=== PATIENT | male | born 1955 | race Caucasian/White ===

== ENCOUNTER → 2016-10-28 | Outpatient (REF) | payer OTHER ==
[2016-10-28 17:30] LABS: ALBUMIN 3.4 GM/DL (3.2-5.2); ALBUMIN/GLOBULIN RATIO 0.85 (1.00-1.93); ALKALINE PHOSPHATASE 67 U/L (45-117); ALT/SGPT 15 U/L (12-78); ANION GAP 10 MEQ/L (8-16); AST/SGOT 14 U/L (15-37); BILIRUBIN,TOTAL 0.5 MG/DL (0.2-1.0); BLOOD UREA NITROGEN 5 MG/DL (7-18); CALCIUM LEVEL 8.8 MG/DL (8.8-10.2); CARBON DIOXIDE LEVEL 25 MEQ/L (21-32); CHLORIDE LEVEL 94 MEQ/L (98-107); CHOLESTEROL LEVEL 150 MG/DL (<200); CREATININE FOR GFR 0.67 MG/DL (0.70-1.30); GLOMERULAR FILTRATION RATE > 60.0 (>49); GLUCOSE, FASTING 86 MG/DL (80-110); MAGNESIUM LEVEL 1.8 MG/DL (1.8-2.4); POTASSIUM SERUM 4.7 MEQ/L (3.5-5.1); SODIUM LEVEL 129 MEQ/L (136-145); TOTAL PROTEIN 7.4 GM/DL (6.4-8.2); TRIGLYCERIDES LEVEL 56 MG/DL (<150)
[2016-10-28 17:44] LABS: FOLATE 8.8 NG/ML; VITAMIN B12 LEVEL 184 PG/ML
[2016-10-28 18:12] LABS: BASO # 0.1 K/mm3 (0.0-0.2); BASO % 0.9 % (0.0-1.0); EOS # 0.4 K/mm3 (0.0-0.50); EOS % 5.5 % (0.0-3.0); LARGE UNSTAINED CELL # 0.2 K/mm3 (0.0-0.4); LARGE UNSTAINED CELL % 3.2 % (0.0-4.0); LYMPH # 1.5 K/mm3 (1.5-4.5); LYMPH % 23.4 % (24.0-44.0); MEAN CORPUSCULAR HEMOGLOBIN 35.5 pg (27.0-33.0); MEAN CORPUSCULAR HGB CONC 35.2 g/dl (32.0-36.5); MONO # 0.7 K/mm3 (0.0-0.8); MONO % 10.7 % (0.0-5.0); NEUTROPHILS # 3.7 K/mm3 (1.8-7.7); NEUTROPHILS % 56.3 % (36.0-66.0); PLATELET COUNT, AUTOMATED 508 k/mm3 (150-450); WHITE BLOOD COUNT 6.5 K/mm3 (4.0-10.0)
== END ==
LOC: M SFHCCAPE 08:33
PROVIDERS: ATTEND Physician Assistant
DX: R10.11 Right upper quadrant pain (principal); I10 Essential (primary) hypertension; F10.10 Alcohol abuse, uncomplicated; Z12.5 Encounter for screening for malignant neoplasm of prostate
CPT/HCPCS: 80053; 80061; 81001; 82607; 82746; 83690; 83735; 84443; 85025; 87338; G0103

== ENCOUNTER → 2016-12-30 | Outpatient (CLI) | payer OTHER ==
[~2016-12-30] MED LIST: GASTROGRAFIN SOLUTION 30ML (Q9963) As Ordered ONE; ISOVUE-370 76% 100ML VIAL (Q9967) As Ordered ONE
--- NOTE | 2016-12-31 08:27 | REP ---
Clinical: Right upper quadrant pain. Technique: Axial contrast enhanced images from the lung bases to the pubic symphysis using oral and 100 ml Isovue 370 intravenous contrast material with precontrast images of the abdomen as well as coronal and sagittal re-formations. Comparison: 04/09/2013. Findings: Lung bases demonstrate calcified pleural plaques, mild dependent changes and chronic stable basilar scarring. Visualized portions of the heart and pericardium are normal. Liver, spleen, pancreas, gallbladder, bilateral adrenal glands and kidneys are relatively normal. Incidental note is made of a 3 mm right renal calculus which may represent nephroliths versus renovascular calcifications. The enteric system is without obstruction or acute inflammatory process. Pelvis demonstrates mild bladder wall thickening which may be secondary to chronic outlet obstruction. The prostate gland is within normal limits for size. No pelvic fluid or ascites. No obvious adenopathy. Atherosclerotic changes to the aorta and vasculature noted without aneurysm. Musculoskeletal structures demonstrate age-related degenerative changes without focal osseous abnormality. Impression: 1. Scattered calcified pleural plaques and minimal basilar scarring suggest sequelae of prior asbestosis. 2. Mild bladder wall thickening cannot be excluded and should be correlated with urological consultation. 3. No acute cardiopulmonary process otherwise appreciated. Signed by John Dior MD 12/31/2016 08:18 A
== END ==
LOC: M RAD 15:31
PROVIDERS: ATTEND Physician Assistant
DX: R10.11 Right upper quadrant pain (principal)
CPT/HCPCS: 74178; Q9963; Q9967

== ENCOUNTER → 2017-01-12 | Outpatient (CLI) | payer OTHER ==
--- NOTE | 2017-01-12 10:24 | REP ---
Clinical: Lung screening. History smoking. Comparison: None Technique: Axial low-dose noncontrast images from the thoracic inlet to the upper abdomen using lung screening technique. Findings: The lung camacho are well-aerated and demonstrate diffuse moderate COPD/emphysematous changes as well as apical (right greater than left) and scattered scarring. Partially calcified pleural plaques are also identified. The tracheobronchial tree is patent. Scarring adjacent to a pleural plaque along the anterior right upper lobe (images 54 - 70) is noted. No consolidation, nodule or mass lesion is appreciated. No pleural effusion. Mild atherosclerotic changes of the aorta and coronary arteries noted without obvious cardiomegaly. Impression: While no obvious nodule or suspicious lesion is definitively appreciated, there are no Society criteria for follow up based on the above mentioned chronic findings including moderate emphysematous disease, scattered scarring, and findings to suggest asbestosis. Pulmonology consultation is recommended. Signed by John Dior MD 01/12/2017 10:15 A
== END ==
LOC: M RAD 09:46
PROVIDERS: ATTEND Physician Assistant
DX: F17.210 Nicotine dependence, cigarettes, uncomplicated (principal)

== ENCOUNTER → 2017-02-02 | Outpatient (REF) | payer OTHER | LOC: M LABSMT 08:55 | PROVIDERS: ATTEND Nurse Practitioner Women's Health | DX: R31.29 Other microscopic hematuria (principal) ==

== ENCOUNTER 2017-06-20 14:32 | Emergency (ER) | payer OTHER | END 2017-06-20 17:08 | disposition home or self-care (01) | LOC: M ED 14:32 | DX: S05.10XA Contusion of eyeball and orbital tissues, unspecified eye, initial encounter (principal); S50.01XA Contusion of right elbow, initial encounter; W01.10XA Fall on same level from slipping, tripping and stumbling with subsequent striking against unspecified object, initial encounter; Y92.099 Unspecified place in other non-institutional residence as the place of occurrence of the external cause; Y93.9 Activity, unspecified; Y99.9 Unspecified external cause status; I10 Essential (primary) hypertension; R10.9 Unspecified abdominal pain; F17.200 Nicotine dependence, unspecified, uncomplicated; F10.10 Alcohol abuse, uncomplicated; Z79.899 Other long term (current) drug therapy | CPT/HCPCS: 73080 ==

== ENCOUNTER 2017-08-13 18:57 | Emergency (ER) | payer OTHER ==
[2017-08-13] MEDS: TETANUS/DIPHTHERIA TOX ADSORB ADULT 0.5ML SYR/VIAL (90714) IM (19:35)
[2017-08-13] MEDS: LIDOCAINE W/EPINEPHRINE 1% 20ML VIAL SC (19:55)
== END 2017-08-13 20:40 | disposition home or self-care (01) ==
LOC: M ED 18:57
DX: S01.81XA Laceration without foreign body of other part of head, initial encounter (principal); W10.8XXA Fall (on) (from) other stairs and steps, initial encounter; W22.09XA Striking against other stationary object, initial encounter; Y92.098 Other place in other non-institutional residence as the place of occurrence of the external cause; I10 Essential (primary) hypertension; Z79.899 Other long term (current) drug therapy
CPT/HCPCS: 90714

== ENCOUNTER 2018-03-18 14:37 | Inpatient (IN) | payer OTHER ==
[~2018-03-18] VITALS: Ht 170.2 cm; Wt 58.0 kg
[~2018-03-18 14:37] MED LIST changes: +AUGM875T28 PO; -GASTROGRAFIN SOLUTION 30ML (Q9963) As Ordered ONE; -ISOVUE-370 76% 100ML VIAL (Q9967) As Ordered ONE; +LISI40TA PO
[2018-03-18] MEDS ORDERED: LORazepam 1 MG TAB PO STA (15:00)
[2018-03-18] MEDS ORDERED: THIAMINE HCL 200 MG/2 ML VIAL (J3411) IM ONE (15:00)
[2018-03-18] MEDS ORDERED: ACETAMINOPHEN 325 MG TAB PO ONE (15:00)
[2018-03-18] MEDS ORDERED: NS 1,000 ML IV ONE (15:15)
[2018-03-18 15:16] LABS: OSMOLALITY SERUM 268 MOSM/KG (280-301)
[2018-03-18 15:20] LABS: BASO % 0.4 % (0.0-1.0); EOS % 0.1 % (0.0-3.0); HEMATOCRIT 41.9 % (42.0-52.0); HEMOGLOBIN 15.6 g/dl (13.5-17.5); LYMPH # 0.9 10^3/uL (1.5-4.5); LYMPH % 9.7 % (24.0-44.0); MEAN CORPUSCULAR HEMOGLOBIN 35.5 pg (27.0-33.0); MEAN CORPUSCULAR HGB CONC 37.2 g/dl (32.0-36.5); MEAN CORPUSCULAR VOLUME 95.4 fl (80.0-96.0); MONO # 1.5 10^3/uL (0.0-0.8); MONO % 15.8 % (0.0-5.0); NEUTROPHILS # 6.7 10^3/uL (1.8-7.7); NEUTROPHILS % 72.5 % (36.0-66.0); PLATELET COUNT, AUTOMATED 196 10^3/uL (150-450); RED BLOOD COUNT 4.39 10^6/uL (4.30-6.10); WHITE BLOOD COUNT 9.2 10^3/uL (4.0-10.0)
--- NOTE | 2018-03-18 15:23 | REP ---
Clinical: Altered mental status. Comparison: None. Findings: Mediastinum and cardiac silhouette are normal. Scattered partially calcified bilateral pleural plaques identified. Chronic interstitial changes are suggested. No obvious acute consolidation, effusion, or pneumothorax. Skeletal structures intact. Impression: Partially calcified pleural plaques and chronic appearing interstitial changes. No obvious acute consolidation or effusion. Electronically Signed by John Dior MD 03/18/2018 03:15 P
[2018-03-18] MEDS ORDERED: LORazepam 2 MG/ML VIAL (J2060) IV STA (15:28)
[2018-03-18 15:33] LABS: ACETAMINOPHEN LEVEL < 2.0 UG/ML (10.0-30.0); ALBUMIN 3.3 GM/DL (3.2-5.2); ALT/SGPT 29 U/L (12-78); BILIRUBIN,DIRECT 0.2 MG/DL (0.0-0.2); BILIRUBIN,TOTAL 0.5 MG/DL (0.2-1.0); BLOOD UREA NITROGEN 32 MG/DL (7-18); CALCIUM LEVEL 7.8 MG/DL (8.8-10.2); CARBON DIOXIDE LEVEL 22 MEQ/L (21-32); CHLORIDE LEVEL 88 MEQ/L (98-107); CPK CREATINE PHOSPHOKINASE 965 U/L (39-308); CREATININE FOR GFR 1.07 MG/DL (0.70-1.30); ETHYL ALCOHOL (ETHANOL) < 0.003 % (0.000-0.010); GLOMERULAR FILTRATION RATE > 60.0 (>49); GLUCOSE, FASTING 121 MG/DL (70-100); MAGNESIUM LEVEL 2.2 MG/DL (1.8-2.4); MB/CK RELATIVE INDEX 0.42 (< OR =4); POTASSIUM SERUM 4.3 MEQ/L (3.5-5.1); SALICYLATE LEVEL 6.1 MG/DL (5.0-30.0); SODIUM LEVEL 122 MEQ/L (136-145); THYROID STIMULATING HORMONE 0.274 uIU/ML (0.358-3.740); TOTAL PROTEIN 7.6 GM/DL (6.4-8.2); TROPONIN I < 0.02 NG/ML (< 0.10)
[2018-03-18 15:39] LABS: VENOUS BASE EXCESS -3.5 (-2.0-2.0); VENOUS HCO3 21.2 MEQ/L (23.0-27.0); VENOUS O2 SATURATION 51.1 % (60.0-80.0); VENOUS PARTIAL PRESSURE CO2 37.6 mmHg (38.0-50.0); VENOUS STANDARD HCO3 20.5 MEQ/L; VENOUS TOTAL CO2 22.4 MEQ/L (24.0-28.0)
[2018-03-18 16:33] LABS: FREE T4 1.36 NG/DL (0.76-1.46)
[2018-03-18 16:33] LABS: OSMOLALITY URINE 646 MOSM/KG (500-800)
[2018-03-18 16:49] LABS: AMPHETAMINES LEVEL URINE NEGATIVE (NEGATIVE); BARBITURATES URINE NEGATIVE (NEGATIVE); BENZODIAZEPINES URINE NEGATIVE (NEGATIVE); CANNABINOIDS URINE NEGATIVE (NEGATIVE); COCAINE METABOLITE URINE NEGATIVE (NEGATIVE); METHADONE URINE NEGATIVE (NEGATIVE); OPIATES URINE NEGATIVE (NEGATIVE); PHENCYCLIDINE URINE NEGATIVE (NEGATIVE)
[2018-03-18 16:53] LABS: SODIUM,RANDOM URINE < 10 MEQ/L
[2018-03-18] MEDS ORDERED: OSELTAMIVIR PHOSPHATE 75 MG CAP (TAMIFLU) PO ONE (17:15)
[2018-03-18] MEDS ORDERED: LORazepam 2 MG TAB PO PRN (18:45)
[2018-03-18] MEDS: NS 1,000 ML IV SCH (19:57)
[2018-03-18 20:00] VITALS: BP 100/68
[2018-03-18] MEDS: MULTIVITAMINS/MINERALS THERAP 1 TAB PO SCH (20:23)
[2018-03-18] MEDS: FOLIC ACID 1 MG TAB PO SCH (20:23)
[2018-03-18] MEDS: THIAMINE 100 MG TAB PO SCH (20:24)
[2018-03-18] MEDS ORDERED: MULTIVITAMIN -ADULT INJECTION 10 ML, THIAMINE INJection 100 MG, FOLIC ACID 1 MG in NS 1... IV ONE (20:30)
[2018-03-18 22:00] VITALS: BP 160/68
--- NOTE | 2018-03-18 22:06 | HPE ---
DATE OF ADMISSION: 03/18/2018 62-year-old male with a past medical history of hypertension, prior alcoholism, presents to the emergency room after his ex- saw him having difficulty getting out of bed and that he appeared in withdrawal, so the patient was brought to the emergency room for evaluation. In the emergency room, the patient was in withdrawal and was given Ativan and IV fluids. The patient subsequently was noted that one vital sign showed that he had a spike in temperature of 102 rectal. Chest x-ray was negative. UA was negative; however, the influenza swab was positive and was started on Tamiflu. At this time, the patient is extremely sedated from the Ativan and all the history I got was from the daughter. The daughter states that apparently the patient drinks very heavily every single day and only drinks beer. This state of affairs has been going on for quite some time now. He will be admitted for further management. PAST MEDICAL HISTORY: 1. Hypertension. ALLERGIES: He has no known drug allergies. FAMILY HISTORY: Cannot be assessed, the patient is sedated. SOCIAL HISTORY: Cannot be assessed, the patient is sedated; however, from the daughter the patient drinks very heavily and only beer and apparently does not take any drugs. He does smoke one pack per day for many years. MEDICATIONS: At home are: - Lisinopril 40 mg orally daily REVIEW OF SYSTEMS: Cannot be assessed, the patient is sedated. PHYSICAL EXAMINATION: VITAL SIGNS: Blood pressure is 89/56, heart rate is 82 and regular, respiratory rate is 24, temperature is 102 rectally. Oxygen saturation is 96% on room air. Head is atraumatic, normocephalic. Neck is supple with no jugular venous distention (JVD). Lungs are clear to auscultation. S1, S2 audible. No murmurs appreciated. Abdomen is soft. Positive bowel sounds. No pedal edema. Skin is intact. Neurologic examination, the patient is sedated. LABORATORIES: Sodium 122, potassium 4.3, chloride 88, CO2 of 22, BUN 32, creatinine 1.07, glucose 121, troponin is less than 0.02, TSH is 0.274, Free T4 1.36. WBC 9.2, hemoglobin 15.6, hematocrit 41.9, platelets are 196,000. VBG showed pH of 7.370. Toxicology screen was negative. The patient's creatinine kinase is 965. IMPRESSION: 1. Influenza 2. Hyponatremia. 3. Alcohol withdrawal. 4. Rhabdomyolysis. PLAN: The patient is to be admitted to the progressive care unit (PCU). We will start Clinical [place] Withdrawal Assessment (CIWA) protocol. I am going to continue his Tamiflu at 75 mg by mouth twice a day. His hyponatremia is from beer [place]. I would normally just restrict fluids but since the patient is mildly on the hypotensive side and the fact that he has rhabdomyolysis, I am going to start him on fluids at normal saline at 75 mL an hour. We will hold his Lisinopril for now due to his low blood pressure. Continue his care in the progressive care unit (PCU).
[2018-03-18] MEDS: IPRATROPIUM 0.5MG/ALBUTEROL 2.5MG INH SOL UD 3ML (DUONEB)(J7620) NEB PRN (23:37)
[2018-03-19] VITALS (12 sets, daily range): BP systolic 111–180; BP diastolic 60–101; O2SAT 93
[2018-03-19 05:31] LABS: BLOOD UREA NITROGEN 23 MG/DL (7-18); CALCIUM LEVEL 7.4 MG/DL (8.8-10.2); CARBON DIOXIDE LEVEL 24 MEQ/L (21-32); CHLORIDE LEVEL 98 MEQ/L (98-107); CREATININE FOR GFR 0.77 MG/DL (0.70-1.30); GLOMERULAR FILTRATION RATE > 60.0 (>49); GLUCOSE, FASTING 96 MG/DL (70-100); POTASSIUM SERUM 4.5 MEQ/L (3.5-5.1); SODIUM LEVEL 130 MEQ/L (136-145)
[2018-03-19 05:33] LABS: ALBUMIN 2.7 GM/DL (3.2-5.2); ALT/SGPT 21 U/L (12-78); BILIRUBIN,TOTAL 0.5 MG/DL (0.2-1.0); BLOOD UREA NITROGEN 22 MG/DL (7-18); CALCIUM LEVEL 7.6 MG/DL (8.8-10.2); CARBON DIOXIDE LEVEL 22 MEQ/L (21-32); CHLORIDE LEVEL 98 MEQ/L (98-107); CREATININE FOR GFR 0.78 MG/DL (0.70-1.30); GLOMERULAR FILTRATION RATE > 60.0 (>49); GLUCOSE, FASTING 98 MG/DL (70-100); POTASSIUM SERUM 4.3 MEQ/L (3.5-5.1); SODIUM LEVEL 128 MEQ/L (136-145); TOTAL PROTEIN 6.8 GM/DL (6.4-8.2)
[2018-03-19 05:41] LABS: HEMATOCRIT 38.4 % (42.0-52.0); MEAN CORPUSCULAR HEMOGLOBIN 35.6 pg (27.0-33.0); MEAN CORPUSCULAR HGB CONC 36.5 g/dl (32.0-36.5); MEAN CORPUSCULAR VOLUME 97.7 fl (80.0-96.0); PLATELET COUNT, AUTOMATED 188 10^3/uL (150-450); RED BLOOD COUNT 3.93 10^6/uL (4.30-6.10); WHITE BLOOD COUNT 8.8 10^3/uL (4.0-10.0)
--- NOTE | 2018-03-19 07:24 | ECGEPIP ---
Stationary ECG Study [facility] - ED Test Date: 2018-03-18 Pat Name: MATHEW COHN Department: Room: - Gender: M Political Science Professor: brianda : [id number] Requested By: Val Brooks Order Number: [id number] Reading MD: Val Brooks Measurements Intervals [place] Rate: 121 P: 86 WV: 151 QRS: 84 QRSD: 73 T: 73 QT: 260 QTc: 369 Interpretive Statements SINUS TACHYCARDIA ANTEROSEPTAL MYOCARDIAL INFARCTION, PROBABLY OLD BASELINE ARTIFACT LIMITS INTERPRETATION NO PRIOR FOR COMPARISON Electronically Signed On 03-19-2018 7:24:13 EST by Val Brooks
[2018-03-19 08:11] LABS: CPK CREATINE PHOSPHOKINASE 480 U/L (39-308)
[2018-03-19] MEDS: OXAZEPAM 15 MG CAP PO SCH ×2 (08:15→12:58)
[2018-03-19] MEDS: OSELTAMIVIR PHOSPHATE 75 MG CAP (TAMIFLU) PO SCH ×2 (08:16→20:19)
--- NOTE | 2018-03-19 09:50 | REP ---
Clinical: Right upper quadrant pain. Technique: Axial noncontrast images from the lung bases to the pubic symphysis with coronal and sagittal re-formations. Comparison: 12/30/2016. Findings: Lung bases demonstrate calcified pleural plaques and chronic interstitial changes similar to prior examination. Liver, spleen, pancreas, gallbladder, bilateral adrenal glands and kidneys are within normal limits and stable. Small bilateral renovascular calcifications (right greater than left) are unchanged. The enteric system is without obstruction or obvious acute inflammatory process. Pelvis demonstrates normal bladder and mildly prominent prostate gland. No ascites. No free air. No obvious adenopathy. Atherosclerotic changes to the aorta and vasculature without aneurysm. Musculoskeletal structures demonstrate degenerative changes. Impression: 1. Chronic stable changes. 2. No obvious acute abdominopelvic pathology appreciated. Electronically Signed by John Dior MD 03/19/2018 09:41 A
[2018-03-19] MEDS: FOLIC ACID 1 MG TAB PO SCH (10:50)
[2018-03-19] MEDS: MULTIVITAMINS/MINERALS THERAP 1 TAB PO SCH (10:51)
[2018-03-19] MEDS: THIAMINE 100 MG TAB PO SCH ×2 (10:51→20:19)
--- NOTE | 2018-03-19 11:39 | REP ---
Clinical: Confusion. Comparison: 08/13/2017 . Findings: Age-related atrophy and microvascular ischemic changes are appreciated. The ventricles and sulci are symmetric. Colbert-white differentiation is maintained. There is no evidence for acute intracranial hemorrhage, mass/mass effect, pathology or infarction. No extra-axial fluid collection. Calvarium is intact. Partial opacification of the ethmoid and sphenoid sinuses noted. Impression: Age related atrophy and microvascular ischemic changes. No acute intracranial hemorrhage, infarction, or mass/mass effect. Ethmoid sinusitis. Electronically Signed by John Dior MD 03/19/2018 11:31 A
[2018-03-19] MEDS: NS 1,000 ML IV SCH (11:52)
[2018-03-19] MEDS: IPRATROPIUM 0.5MG/ALBUTEROL 2.5MG INH SOL UD 3ML (DUONEB)(J7620) NEB PRN (12:13)
[2018-03-19] MEDS ORDERED: ACETAMINOPHEN 650 MG SUPP PR PRN (12:30)
--- NOTE | 2018-03-19 13:57 | IPNPDOC ---
Text Note Date of Service The patient was seen on 03/19/18. NOTE Subjective: Patient is a 62-year-old male with a past history of HTN, Alcoholism who presented to the ER, brought in by his because of confusion. As per the , patient has been having progressive worsening mentation over 3 weeks. In the ER patient was suspected to have alcohol withdrawal, and was admitted to the hospitalist service for further evaluation and treatment. As per the daughter, patient is reported to have heavy alcohol consumption daily. Patient was seen and examined at the bedside. Currently, patient is unable to answer specific questions. He did complain of right upper quadrant abdominal pain. He denied any difficulty with breathing, chest pain or palpitations. Has not expense any nausea or vomiting. Has had bowel movements. No urinary discomfort. Objective: Vitals (See below) General: Lying in bed, no acute distress, comfortable, Awake / Alert, Oriented to person HEENT: NC, AT CVS: RRR, +S1S2 Lungs: Fair air entry b/l, -w/r/r Abdomen: Soft, ND, Tenderness at RUQ Extremities: - Edema, - Calf tenderness Assessment and plan: Confusion - possibly 2/2 alcohol withdrawal, possibly 2/2 dementia - Patient's family has noted progressive decline of mentation - Physical without focal weakness - CT head 2/3: Age related atrophy and microvascular ischemic changes. No acute intracranial hemorrhage, infarction, or mass/mass effect. Ethmoid sinusitis. - Will check repeat thyroid function, RPR, B12, Folate - Will get MRI brain - Will start PT / OT as tolerated Alcohol withdrawal - c/w CIWA protocol - c/w Serax; will taper as tolerated - c/w Ativan PRN Fever - likely 2/2 Influenza - No respiratory difficulty noted - Saturating well on room air - No significant leucocytosis; no lactic acidosis - Respiratory panel 2/2: Influenza A - CXR 2/2: Partially calcified pleural plaques and chronic appearing interstitial changes. No obvious acute consolidation or effusion. - c/w Oseltamivir (Day #2) RUQ abdominal pain - etiology unclear, possibly 2/2 alcoholic hepatitis - Complains of abdominal tenderness on physical exam - Mild elevation of AST - supporting alcoholic hepatitis - CT abdomen / pelvis 2/3: 1. Chronic stable changes. 2. No obvious acute abdo minopelvic pathology appreciated. - Will get US of RUQ Hyponatremia - likely 2/2 hypotonic, hypovolemic; less likely 2/2 hypotonic, euvolemic - Sodium has slowly improved - c/w IV fluid hydration Rhabdomyolysis - CK levels have been improving - c/w gentle IV fluid hydration GI prophylaxis - Will start Protonix DVT prophylaxis - Will start Lovenox VS,Fishbone, I+O VS, Fishbone, I+O Laboratory Tests 03/18/18 14:54 Red Blood Count 4.39, Mean Corpuscular Volume 95.4, Mean Corpuscular Hemoglobin 35.5 H, Mean Corpuscular Hemoglobin Concent 37.2 H, Red Cell Distribution Width 11.9, Neutrophils (%) (Auto) 72.5 H, Lymphocytes (%) (Auto) 9.7 L, Monocytes (%) (Auto) 15.8 H, Eosinophils (%) (Auto) 0.1, Basophils (%) (Auto) 0.4, Neutrophils # (Auto) 6.7, Lymphocytes # (Auto) 0.9 L, Monocytes # (Auto) 1.5 H, Eosinophils # (Auto) 0.0, Basophils # (Auto) 0.0 03/19/18 04:59 Red Blood Count 3.93 L, Mean Corpuscular Volume 97.7 H, Mean Corpuscular Hemoglobin 35.6 H, Mean Corpuscular Hemoglobin Concent 36.5, Red Cell Distribution Width 12.2, Calcium Level 7.4 L, Aspartate Amino Transf (AST/SGOT) 35, Alanine Aminotransferase (ALT/SGPT) 21, Alkaline Phosphatase 50, Total Bilirubin 0.5, Total Protein 6.8, Albumin 2.7 L Vital Signs Date Time Temp Pulse Resp B/P (MAP) Pulse Ox O2 Delivery O2 Flow Rate FiO2 03/19/18 12:28 120 180/101 03/19/18 12:05 101.0 03/19/18 08:00 18 97 03/18/18 19:15 Room Air I&O- Last 24 Hours up to 6 AM 03/19/18 06:00 Intake Total 873 ml Balance 873 ml RAE MCNAMARA MD Mar 19, 2018 13:57
[2018-03-19 14:24] LABS: INR 1.25; PROTHROMBIN TIME 15.9 SECONDS (12.1-14.4)
[2018-03-19] MEDS: LISINOPRIL 40 MG TAB PO SCH (15:50)
--- NOTE | 2018-03-19 16:14 | REPVR ---
EXAM: MR Head Without Contrast EXAM DATE/TIME: 03/19/2018 3:04 PM CLINICAL HISTORY: 62 years old, male; Signs and symptoms; Other: Confusion TECHNIQUE: MR of the head without contrast. COMPARISON: CT Head without contrast 03/19/2018 11:16 AM FINDINGS: Brain: There is no evidence of acute stroke. There is low signal intensity in the basal ganglia region bilaterally especially on the gradient sequences. Metallic deposition in this area can be seen Parkinson's disease. There is no evidence of mass effect. There is moderate enlargement of the ventricles and cerebral sulci which can be seen with moderate atrophy. This can also be the result of normal pressure hydrocephalus/communicating type hydrocephalus. Recommend correlation clinically. Bones/joints: Unremarkable. Sinuses: There is a small amount of thick secretions right maxillary sinus. There is opacification of the ethmoid sinuses consistent with mucosal thickening changes and sinusitis. Small amount of fluid in the sphenoid sinus. IMPRESSION: 1. Small amount of thick secretions maxillary sinuses. Opacification of the ethmoid sinuses probably changes of sinusitis. Underlying polyps not excluded. 2. Low signal intensity through the basal ganglia bilaterally may be metallic deposition. This can be seen Parkinson's disease. 3. Moderate enlargement of ventricles and cerebral sulci may all be the result of atrophy. Communicating type hydrocephalus can give an identical appearance. I would recommend correlation with the patient's clinical findings. Electronically signed by: Brian Monae On 03/19/2018 16:14:31 PM
[2018-03-19] MEDS: ENOXAPARIN 40 MG/0.4 ML SYRINGE (J1650) SC SCH (16:36)
[2018-03-19] MEDS: PANTOPRAZOLE 40MG INJ (PROTONIX) (C9113) IV SCH (16:36)
--- NOTE | 2018-03-19 16:36 | REP ---
Clinical: Crackles. Comparison: 03/18/2018. Findings: Mediastinum and cardiac silhouette are stable and within normal limits. Lung camacho demonstrate diffuse chronic pleuroparenchymal changes including fibrosis and scattered partially calcified pleural plaques. Very subtle left basilar atelectasis/early infiltrate cannot be excluded. No further consolidation, obvious effusion, or pneumothorax. Impression: Chronic stable pleuroparenchymal changes. Cannot exclude very subtle early left lower lobe infiltrate. Electronically Signed by John Dior MD 03/19/2018 04:27 P
[2018-03-19] MEDS: LevoFLOXacin IV 750 MG in APPROPRIATE DILUENT 1 EA IV SCH (17:26)
[2018-03-19 18:40] LABS: FREE T4 1.45 NG/DL (0.76-1.46); THYROID STIMULATING HORMONE 0.209 uIU/ML (0.358-3.740)
[2018-03-19] MEDS: VANCOMYCIN HCL 1,000 MG, VIAL MATE ADAPTER 1 EACH in D5W 250 ML IV SCH (20:18)
[2018-03-19] MEDS: OXAZEPAM 10 MG CAP PO SCH (20:19)
[2018-03-20] VITALS (9 sets, daily range): BP systolic 119–184; BP diastolic 58–112
[2018-03-20] MEDS: NS 1,000 ML IV SCH ×2 (01:06→09:05)
[2018-03-20 05:53] LABS: BASO % 0.2 % (0.0-1.0); EOS % 0.2 % (0.0-3.0); HEMATOCRIT 36.4 % (42.0-52.0); HEMOGLOBIN 13.3 g/dl (13.5-17.5); MEAN CORPUSCULAR HEMOGLOBIN 35.5 pg (27.0-33.0); MEAN CORPUSCULAR HGB CONC 36.5 g/dl (32.0-36.5); MEAN CORPUSCULAR VOLUME 97.1 fl (80.0-96.0); MONO # 1.4 10^3/uL (0.0-0.8); PLATELET COUNT, AUTOMATED 214 10^3/uL (150-450); RED BLOOD COUNT 3.75 10^6/uL (4.30-6.10); WHITE BLOOD COUNT 11.5 10^3/uL (4.0-10.0)
[2018-03-20 06:18] LABS: ALBUMIN 2.7 GM/DL (3.2-5.2); ALT/SGPT 22 U/L (12-78); BILIRUBIN,TOTAL 0.5 MG/DL (0.2-1.0); BLOOD UREA NITROGEN 12 MG/DL (7-18); CALCIUM LEVEL 7.8 MG/DL (8.8-10.2); CARBON DIOXIDE LEVEL 24 MEQ/L (21-32); CHLORIDE LEVEL 102 MEQ/L (98-107); CREATININE FOR GFR 0.54 MG/DL (0.70-1.30); GLOMERULAR FILTRATION RATE > 60.0 (>49); GLUCOSE, FASTING 109 MG/DL (70-100); MAGNESIUM LEVEL 1.8 MG/DL (1.8-2.4); POTASSIUM SERUM 3.9 MEQ/L (3.5-5.1); SODIUM LEVEL 134 MEQ/L (136-145); TOTAL PROTEIN 6.8 GM/DL (6.4-8.2)
--- NOTE | 2018-03-20 07:19 | REP ---
Clinical: Right upper quadrant pain. Technique: Real time pinon scale ultrasound examination using curved array transducer. Findings: Liver and visualized pancreas are normal in contour, size, echogenicity without focal hepatic or pancreatic lesion identified. The gallbladder demonstrates few adenomyomatosis and small benign appearing polyps up to 2 mm without gallstones, wall thickening, or pericholecystic fluid. No sonographic Lovelace's sign elicited. No biliary ductal dilatation appreciated and the common bile duct measures 2.5 mm diameter. Right kidney is normal in reniform shape without hydronephrosis and measures 11.8 x 6.0 x 5.3 cm. A minuscule amount of perihepatic fluid suggested. Impression: 1. Gallbladder demonstrates adenomyomatosis and small polyps to 2 mm. 2. A minuscule amount of perihepatic fluid is nonspecific. Electronically Signed by John Dior MD 03/20/2018 07:11 A
[2018-03-20] MEDS: VANCOMYCIN HCL 1,000 MG, VIAL MATE ADAPTER 1 EACH in D5W 250 ML IV SCH ×2 (08:27→20:18)
[2018-03-20] MEDS: MULTIVITAMINS/MINERALS THERAP 1 TAB PO SCH (09:03)
[2018-03-20] MEDS: ENOXAPARIN 40 MG/0.4 ML SYRINGE (J1650) SC SCH (09:03)
[2018-03-20] MEDS: OXAZEPAM 10 MG CAP PO SCH ×2 (09:03→20:16)
[2018-03-20] MEDS: THIAMINE 100 MG TAB PO SCH ×2 (09:04→20:17)
[2018-03-20] MEDS: OSELTAMIVIR PHOSPHATE 75 MG CAP (TAMIFLU) PO SCH ×2 (09:04→20:17)
[2018-03-20] MEDS: FOLIC ACID 1 MG TAB PO SCH (09:04)
[2018-03-20] MEDS: LISINOPRIL 40 MG TAB PO SCH (09:04)
[2018-03-20 10:05] LABS: FOLATE > 24.0 NG/ML (>5.4); TOTAL T3 51.2 NG/DL (60.0-181.0)
[2018-03-20] MEDS: PANTOPRAZOLE 40MG INJ (PROTONIX) (C9113) IV SCH (15:14)
[2018-03-20 15:45] LABS: CPK CREATINE PHOSPHOKINASE 329 U/L (39-308)
--- NOTE | 2018-03-20 15:56 | IPNPDOC ---
Text Note Date of Service The patient was seen on 03/20/18. NOTE Subjective: Patient is a 62-year-old male with a past history of HTN, Alcoholism who presented to the ER, brought in by his because of confusion. As per the , patient has been having progressive worsening mentation over 3 weeks. In the ER patient was suspected to have alcohol withdrawal, and was admitted to the hospitalist service for further evaluation and treatment. As per the daughter, patient is reported to have heavy alcohol consumption daily. Patient was seen and examined at the bedside. Patient denies any chest pain, shortness breath, palpitation. Denies nausea, vomiting, abdominal pain, constipation or diarrhea. His mentation seems to have improved. He denies any confusion today. . Currently, he is oriented to person and place and is aware of the year. Objective: Vitals (See below) General: Lying in bed, no acute distress, comfortable, Awake / Alert, Oriented to person HEENT: NC, AT CVS: RRR, +S1S2 Lungs: Fair air entry b/l, no evidence of wheezing, rhonchi or rales Abdomen: Soft, ND, No abdominal tenderness Extremities: No evidence of edema, - Calf tenderness Assessment and plan: Confusion - possibly 2/2 alcohol withdrawal, possibly 2/2 dementia - Patient's family has noted progressive decline of mentation - Physical without focal weakness - CT head 2/3: Age related atrophy and microvascular ischemic changes. No acute intracranial hemorrhage, infarction, or mass/mass effect. Ethmoid sinusitis. - Repeat thyroid function noted, RPR non-reactive, Folate >24, B12 pending - MRI brain 2/3: 1. Small amount of thick secretions maxillary sinuses. Opacification of the ethmoid sinuses probably changes of sinusitis. Underlying polyps not excluded. 2. Low signal intensity through the basal ganglia bilaterally may be metallic deposition. This can be seen Parkinson's disease. 3. Moderate enlargement of ventricles and cerebral sulci may all be the result of atrophy. Communicating type hydrocephalus can give an identical appearance. I would recommend correlati on with the patient's clinical findings. - c/w PT / OT as tolerated Alcohol withdrawal - c/w CIWA protocol - c/w Serax; dose reduced - c/w Ativan PRN Fever - likely 2/2 Influenza / Sinusitis / CAP - No respiratory difficulty noted - Saturating well on room air - No significant leucocytosis; no lactic acidosis - Respiratory panel 2/: Influenza A - CXR 2/: Partially calcified pleural plaques and chronic appearing interstitial changes. No obvious acute consolidation or effusion. - CXR 03/20: Chronic stable pleuroparenchymal changes. Cannot exclude very subtle early left lower lobe infiltrate. - c/w Oseltamivir (Day #3) and Levaquin (Day #2) Gram positive bacteremia - possibly 2/2 contaminant - Blood culture 03/18: (1 of 2 bottles positive); Pending official speciation / Gram positive cocci pairs/chains/clusters - Blood culture 03/20: Pending - c/w Vancomycin (Day #2) s/p RUQ abdominal pain - etiology unclear, possibly 2/2 alcoholic hepatitis - Complains of abdominal tenderness on physical exam - Mild elevation of AST - supporting alcoholic hepatitis - CT abdomen / pelvis 03/19: 1. Chronic stable changes. 2. No obvious acute abdominopelvic pathology appreciated. - US abdomen 03/20: 1. Gallbladder demonstrates adenomyomatosis and small polyps to 2 mm. 2. A minuscule amount of perihepatic fluid is nonspecific. Hyponatremia - likely 2/2 hypotonic, hypovolemic; less likely 2/2 hypotonic, euvolemic - Sodium continues to trend toward normal - c/w IV fluid hydration Rhabdomyolysis - CK trending down - c/w gentle IV fluid hydration GI prophylaxis - c/w Protonix DVT prophylaxis - c/w Lovenox VS,Fishbone, I+O VS, Fishbone, I+O Laboratory Tests 03/20/18 05:24 Red Blood Count 3.75 L, Mean Corpuscular Volume 97.1 H, Mean Corpuscular Hemoglobin 35.5 H, Mean Corpuscular Hemoglobin Concent 36.5, Red Cell Distribution Width 12.3, Neutrophils (%) (Auto) 78.0 H, Lymphocytes (%) (Auto) 9.0 L, Monocytes (%) (Auto) 12.0 H, Eosinophils (%) (Auto) 0.2, Basophils (%) (Auto) 0.2, Neutrophils # (Auto) 9.0 H, Lymphocytes # (Auto) 1.0 L, Monocytes # (Auto) 1.4 H, Eosinophils # (Auto) 0.0, Basophils # (Auto) 0.0, Calcium Level 7.8 L, Aspartate Amino Transf (AST/SGOT) 29, Alanine Aminotransferase (ALT/SGPT) 22, Alkaline Phosphatase 53, Total Bilirubin 0.5, Total Protein 6.8, Albumin 2.7 L Vital Signs Date Time Temp Pulse Resp B/P (MAP) Pulse Ox O2 Delivery O2 Flow Rate FiO2 03/20/18 12:35 110 158/66 03/20/18 12:00 98.8 18 98 03/19/18 17:00 Room Air I&O- Last 24 Hours up to 6 AM 03/20/18 06:00 Intake Total 2478 ml Output Total 0 ml Balance 2478 ml RAE MCNAMARA MD Mar 20, 2018 15:56
[2018-03-20] MEDS: LevoFLOXacin IV 750 MG in APPROPRIATE DILUENT 1 EA IV SCH (16:49)
[2018-03-21] VITALS (8 sets, daily range): BP systolic 156–192; BP diastolic 75–96
[2018-03-21] MEDS: NS 1,000 ML IV SCH (00:46)
[2018-03-21 06:18] LABS: HEMATOCRIT 32.4 % (42.0-52.0); HEMOGLOBIN 11.8 g/dl (13.5-17.5); MEAN CORPUSCULAR HEMOGLOBIN 35.2 pg (27.0-33.0); MEAN CORPUSCULAR HGB CONC 36.4 g/dl (32.0-36.5); MEAN CORPUSCULAR VOLUME 96.7 fl (80.0-96.0); PLATELET COUNT, AUTOMATED 242 10^3/uL (150-450); RED BLOOD COUNT 3.35 10^6/uL (4.30-6.10); WHITE BLOOD COUNT 7.1 10^3/uL (4.0-10.0)
[2018-03-21 06:39] LABS: ALBUMIN 2.2 GM/DL (3.2-5.2); ALT/SGPT 17 U/L (12-78); BILIRUBIN,TOTAL 0.5 MG/DL (0.2-1.0); BLOOD UREA NITROGEN 6 MG/DL (7-18); CALCIUM LEVEL 7.4 MG/DL (8.8-10.2); CARBON DIOXIDE LEVEL 25 MEQ/L (21-32); CHLORIDE LEVEL 101 MEQ/L (98-107); CREATININE FOR GFR 0.48 MG/DL (0.70-1.30); GLOMERULAR FILTRATION RATE > 60.0 (>49); GLUCOSE, FASTING 121 MG/DL (70-100); MAGNESIUM LEVEL 1.7 MG/DL (1.8-2.4); POTASSIUM SERUM 3.4 MEQ/L (3.5-5.1); SODIUM LEVEL 134 MEQ/L (136-145); TOTAL PROTEIN 5.8 GM/DL (6.4-8.2)
[2018-03-21 06:57] LABS: LYMPHOCYTES 17 % (16-52); MONOCYTES 9 % (0-8); NEUTROPHILS 74 % (35-75)
[2018-03-21 06:58] LABS: PLATELET ESTIMATE NORMAL (NORMAL)
[2018-03-21] MEDS ORDERED: VANCOMYCIN HCL 1,000 MG, VIAL MATE ADAPTER 1 EACH in D5W 250 ML IV ONE (07:00)
--- NOTE | 2018-03-21 07:03 | PHACANCOPD ---
PHARMACY VANCOMYCIN DOSING Pt Demographics Demographics Patient Age:62 , Weight:55.000 , Gender: male Adjusted Body Weight Date: 03/21/18, Adjusted Body Weight: Kg Vancomycin Vancomycin indication: sepsis Vancomycin Target Ranges: 15-20 mcg/ml Vancomycin Load Y/N: No Load Dose Date Time Vancomycin Load Dose: Date: Time: Vancomycin Dose Date: 03/21/18. Current Vancomycin Dose: [750 q8h] Intermittent Dosing?: No Labs Labs Laboratory Tests 03/21/18 05:53 Red Blood Count 3.35 L, Mean Corpuscular Volume 96.7 H, Mean Corpuscular Hemoglobin 35.2 H, Mean Corpuscular Hemoglobin Concent 36.4, Red Cell Distribution Width 12.4, Calcium Level 7.4 L, Aspartate Amino Transf (AST/SGOT) 19, Alanine Aminotransferase (ALT/SGPT) 17, Alkaline Phosphatase 44 L, Total Bilirubin 0.5, Total Protein 5.8 L, Albumin 2.2 L Micro Microbiology 03/20/18 Blood Culture, Received Pending 03/20/18 Blood Culture, Received Pending 03/18/18 Blood Culture - Preliminary, Resulted No Growth after 48 hours. All Specime... 03/18/18 Blood Culture - Preliminary, Resulted 03/18/18 Respiratory Virus Panel (PCR) ([facility]OS[facility] MIGUEL) - Final, Complete Influenza A H1-2008 Creatinine Clearance Date:03/21/18. Creatinine Clearance: [>100]. Pending Labs Vanco trough due 03/22@1100 Assessment and Plan Maintaining Current Dose?: No Reason for dose change: Trough too low Pharmacist Note Pharmacist Note Date: 03/21/18. Pharmacist note:Vancomycin trough drawn this morning reported as 12.0. Will order 1 gram for 0700,then adjust regimen to 750mg [id number](had been 1 gram iv [id number])Trough ordered for tomorrow @1100-will continue to follow [facility] Mar 21, 2018 07:03
[2018-03-21] MEDS ORDERED: POTASSIUM CHLORIDE 10 MEQ SR TABLET PO ONE (07:30)
[2018-03-21 09:00] LABS: VITAMIN B12 LEVEL 499 PG/ML (232-1245)
[2018-03-21] MEDS ORDERED: SLF 3 ML SYR IV PRN (09:00)
[2018-03-21] MEDS: LISINOPRIL 40 MG TAB PO SCH (09:07)
[2018-03-21] MEDS: OXAZEPAM 10 MG CAP PO SCH ×2 (09:07→21:14)
[2018-03-21] MEDS: THIAMINE 100 MG TAB PO SCH (09:07)
[2018-03-21] MEDS: ENOXAPARIN 40 MG/0.4 ML SYRINGE (J1650) SC SCH (09:07)
[2018-03-21] MEDS: OSELTAMIVIR PHOSPHATE 75 MG CAP (TAMIFLU) PO SCH ×2 (09:07→21:14)
[2018-03-21] MEDS: FOLIC ACID 1 MG TAB PO SCH (09:07)
[2018-03-21] MEDS: MULTIVITAMINS/MINERALS THERAP 1 TAB PO SCH (09:08)
--- NOTE | 2018-03-21 09:24 | IPNPDOC ---
Text Note Date of Service The patient was seen on 03/21/18. NOTE Subjective: Patient is a 62-year-old male with a past history of HTN, Alcoholism who presented to the ER, brought in by his because of confusion. As per the , patient has been having progressive worsening mentation over 3 weeks. In the ER patient was suspected to have alcohol withdrawal, and was admitted to the hospitalist service for further evaluation and treatment. As per the daughter, patient is reported to have heavy alcohol consumption daily. Patient was examined at bedside. He was orientated to person, and location. However, he was not orientated to year. Patient could not remember the last time he had a drink. He does not remember the if he has had alcoholic withdrawal seizures in the past. He was in bed without any discomfort, denies chest pain, no breathing difficulty, denied abdominal pain. Overnight he had some episodes of tachycardia. He is currently on CIWA protocol. He did not receive any Ativan overnight Objective: Vitals (See below) General: Oriented to person and location, able to answer questions, HEENT: Supple, no JVD CVS: S1 and S2 present and normal, no murmurs Lungs: Fair air entry b/l, no evidence of wheezing, rhonchi or rales Abdomen: Soft, no abdominal tenderness Extremities: No evidence of edema, - Calf tenderness, Assessment and plan: Acute metabolic encephalopathy - possibly 2/2 alcohol withdrawal, possibly 2/2 dementia - Patient's family has noted progressive decline of mentation without focal weakness - CT head 2/3: Age related atrophy and microvascular ischemic changes. No acute intracranial hemorrhage, infarction, or mass/mass effect. Ethmoid sinusitis. - MRI brain 2/3: 1. Small amount of thick secretions maxillary sinuses. Opacification of the ethmoid sinuses probably changes of sinusitis. Underlying polyps not excluded. 2. Low signal intensity through the basal ganglia bilaterally may be metallic deposition. This can be seen Parkinson's disease. 3. Moderate enlargement of ventricles and cerebral sulci may all be the result of atrophy. Communicating type hydrocephalus can give an identical appearance. I would recommend correlation with the patient's clinical findings. - EEG complete; report pending - c/w PT / OT as tolerated - Overnight patient has bouts of confusion, he is not combative, he is not agitated, we'll continue to monitor Alcohol withdrawal - c/w CIWA protocol - c/w Serax; dose reduced - c/w Ativan PRN Fever - likely 2/2 Influenza / Sinusitis / CAP -No breathing difficulty reported, patient is currently satting at 96% on room air - Patient has been afebrile without leucocytosis and lactic acid - Respiratory panel 2/2: Influenza A - Will trend CRP - CXR 2/2: Partially calcified pleural plaques and chronic appearing interstitial changes. No obvious acute consolidation or effusion. - CXR 2/4: Chronic stable pleuroparenchymal changes. Cannot exclude very subtle early left lower lobe infiltrate. - c/w Oseltamivir (Day #4) and Levaquin (Day #3) Gram positive bacteremia - 2/2 Staphylococcus aureus - Blood culture 2/2: (1 of 2 bottles positive); streptococcal - Blood culture 03/20: Pending - c/w Vancomycin (Day #3) - TTE ordered - ID (Dr. Uribe) consulted s/p RUQ abdominal pain - etiology unclear, possibly 2/2 alcoholic hepatitis - On presentation, patient complained of abdominal tenderness, Today she denies abdominal tenderness - Mild elevation of AST - supporting alcoholic hepatitis --- Continues to trend down - CT abdomen / pelvis 03/19: 1. Chronic stable changes. 2. No obvious acute abdominopelvic pathology appreciated. - US abdomen 03/20: 1. Gallbladder demonstrates adenomyomatosis and small polyps to 2 mm. 2. A minuscule amount of perihepatic fluid is nonspecific. Hyponatremia - likely 2/2 hypotonic, hypovolemic; less likely 2/2 hypotonic, euvolemic - Sodium continues to trend toward normal - s/p IV fluid hydration Hypokalemia - Replacement ordered Hypomagnesemia - Replacement ordered Rhabdomyolysis - CK trending down - Will DC IV fluid hydration GI prophylaxis - c/w Protonix DVT prophylaxis - c/w Lovenox VS,Fishbone, I+O VS, Fishbone, I+O Laboratory Tests 03/21/18 05:53 Red Blood Count 3.35 L, Mean Corpuscular Volume 96.7 H, Mean Corpuscular Hemoglobin 35.2 H, Mean Corpuscular Hemoglobin Concent 36.4, Red Cell Distribution Width 12.4, Calcium Level 7.4 L, Aspartate Amino Transf (AST/SGOT) 19, Alanine Aminotransferase (ALT/SGPT) 17, Alkaline Phosphatase 44 L, Total Bilirubin 0.5, Total Protein 5.8 L, Albumin 2.2 L Vital Signs Date Time Temp Pulse Resp B/P (MAP) Pulse Ox O2 Delivery O2 Flow Rate FiO2 03/21/18 08:00 99 22 192/96 (128) 03/21/18 04:00 99.4 96 03/19/18 17:00 Room Air I&O- Last 24 Hours up to 6 AM 03/21/18 06:00 Intake Total 2370 ml Balance 2370 ml GME ATTESTATION GME ATTESTATION My faculty preceptor for this patient encounter was physically present during the encounter and was fully available. All aspects of the patient interview, examination, medical decision making process, and medical care plan development were reviewed and approved by the faculty preceptor. The faculty preceptor is aware and concurs with the plan as stated in the body of this note and will attest to such by his/her cosignature. ATTENDING NOTE I, Chloe Mcnamara, have both independently examined this patient as well as reviewed the documentation. I have discussed in detail with the resident the findings and plan of treatment as documented in the residents documentation. I will continue to follow the patient and offer further guidance to the patients care as necessary during this hospital stay. CINDY PAUL DO Mar 21, 2018 09:24 CHLOE MCNAMARA MD Mar 21, 2018 13:54
[2018-03-21] MEDS ORDERED: MAG SULF 1GM/100ML (MAG RUN) 1 GM in APPROPRIATE DILUENT 1 EA IV ONE (10:45)
[2018-03-21] MEDS: VANCOMYCIN HCL 750 MG, VIAL MATE ADAPTER 1 EACH in D5W 250 ML IV SCH ×2 (14:54→21:14)
[2018-03-21] MEDS: SLF 3 ML SYR IV SCH ×2 (14:55→21:14)
[2018-03-21] MEDS: PANTOPRAZOLE 40MG INJ (PROTONIX) (C9113) IV SCH (14:55)
[2018-03-21] MEDS: hydrALAZINE INJ 20 MG/ML VIAL IV SCH (17:59)
--- NOTE | 2018-03-21 19:26 | CR ---
DATE OF CONSULTATION: 03/21/2018 Asked to consult by hospitalist for evaluation of Staphylococcus aureus bacteremia in a patient who had the flu. HISTORY OF PRESENT ILLNESS: Raman is a 62-year-old gentleman with a history of tobacco abuse, alcoholism, who was brought in by his ex- because of generalized weakness. The patient had been in bed for about a week complaining of weakness. His ex- was concerned that he was going through withdrawal. On arrival to the emergency room, he was given intravenous (IV) fluid, Ativan, and had a temperature of 102. Chest x-ray was negative. Urinalysis was negative. Influenza was positive, and patient was started on Tamiflu. Followup chest x-ray showed a questionable infiltrate. A blood culture, one out of two, on admission was positive for Staphylococcus aureus. The patient today states he wants to go home. He has not been able to get out of bed due to weakness. Physical therapy is working with him, but he was only able to stand. PAST MEDICAL HISTORY: Significant for: 1. Hypertension, not compliant with med. 2. Alcohol abuse. 3. Tobacco abuse. ALLERGIES: No known drug allergies. FAMILY HISTORY: Nonrevealing. SOCIAL HISTORY: He was . His is very attentive to him. She sees him every day. He still drives. They have two children together. One lives in the [facility] and one in [place]. 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 MEDICATION: Lisinopril 40 mg daily at home Currently on: - vancomycin 750 mg IV every 8 hours - levofloxacin 750 mg intravenous (IV) every 24 hours. Today will be day #2. - Protonix 40 mg IV every 24 hours - Tamiflu 75 mg by mouth twice a day. Start date was March 19. - albuterol/Atrovent nebulizer every 4 as needed - thiamine 100 mg by mouth twice a day - lorazepam 2 mg as directed per protocol - folic acid 1 mg by mouth daily - multivitamin one tablet by mouth daily LABORATORY DATA: White count on admission was 9.2, yesterday was 11.5, today 7.1, 74% neutrophils, 17% lymphocytes, 9% monocytes. Sodium 134, potassium 3.4, chloride 101, bicarbonate 25, BUN 6, creatinine 0.48, glucose 121, calcium 7.4, magnesium 1.7. AST 19, ALT 17, alkaline phosphatase 44, CRP 11.5. Vancomycin trough was 12. Urine drug screen was negative. Alcohol level was negative. Syphilis serology nonreactive. Urine has 0 white cells, 1 red cell. IMAGING: Abdominal ultrasound done on March 20 shows a gallbladder adenomyosis with a small polyp, 2 mm, and a miniscule amount of perihepatic fluid. Chest x-ray done on March 19 shows chronic stable pleural parenchymal changes. Cannot exclude left basilar infiltrate. Brain MRI done on March 19: No evidence of stroke. Small amount of secretions in maxillary sinuses. Opacification of the ethmoid sinuses. Moderate enhancement of ventricles and cerebral sulci from atrophy. CT abdomen and pelvis done on March 19 shows chronic stable changes with bilateral renovascular calcification. No evidence of infectious process. PHYSICAL EXAMINATION: Emaciated, chronically ill-looking gentleman in no acute distress, somewhat confused. Temperature is 99.3 currently. Maximal temperature on admission was 102. Pulse 94, respirations 20, blood pressure 172/90, oxygen saturation 96% on room air. HEART: Normal S1, S2. No murmurs. Distant. LUNGS: Diminished breath sounds bilaterally. Poor air entry. Few crackles at the bases. ABDOMEN: Soft, nontender. No hepatosplenomegaly/ EXTREMITIES: No edema, clubbing, or cyanosis. Dry, eczematous rash below the knees bilaterally. Oropharynx is clear with no lesions. No thrush. Edentulous. NECK: Supple. No jugular venous distention (JVD). No bruits. Sinuses nontender. IMPRESSION: This is a 62-year-old gentleman, alcoholic with tobacco abuse, who presented with a 1-week illness. Nasopharyngeal swab was positive for influenza A H1 2008. Blood cultures one out of two was positive for Staphylococcus aureus. Chest x-ray consistent with possible left lower lobe infiltrate. Repeat cultures done on March 20 were negative. IMPRESSION: This is a 62-year-old gentleman who presented with influenza, probably complicated by Staphylococcus aureus pneumoniae with secondary transient bacteremia. The patient has been treated with Levaquin for 48 hours, Tamiflu, and now is started on IV vancomycin. PLAN: 1. Repeat chest x-ray PA and lateral in the morning to rule out pneumonia. 2. Discontinue IV Levaquin. 3. Continue IV vancomycin until identification of Staphylococcus aureus and susceptibilities available. 4. Continue Tamiflu 500 mg by mouth twice a day for 5-10 days, depending on clinical improvement. 5. For eczema, use triamcinolone cream and Eucerin, both lower extremities. Thank you for consultation.
[2018-03-22] VITALS (7 sets, daily range): BP systolic 130–176; BP diastolic 62–86
[2018-03-22] MEDS: hydrALAZINE INJ 20 MG/ML VIAL IV SCH ×4 (00:33→18:00)
[2018-03-22] MEDS: VANCOMYCIN HCL 750 MG, VIAL MATE ADAPTER 1 EACH in D5W 250 ML IV SCH ×2 (04:42→11:34)
[2018-03-22] MEDS: SLF 3 ML SYR IV SCH ×3 (05:29→19:59)
[2018-03-22 06:13] LABS: BASO % 0.5 % (0.0-1.0); EOS # 0.1 10^3/uL (0.0-0.50); EOS % 1.6 % (0.0-3.0); HEMATOCRIT 33.8 % (42.0-52.0); HEMOGLOBIN 12.3 g/dl (13.5-17.5); LYMPH # 1.5 10^3/uL (1.5-4.5); LYMPH % 26.6 % (24.0-44.0); MEAN CORPUSCULAR HEMOGLOBIN 35.7 pg (27.0-33.0); MEAN CORPUSCULAR HGB CONC 36.4 g/dl (32.0-36.5); MONO # 1.1 10^3/uL (0.0-0.8); MONO % 18.7 % (0.0-5.0); NEUTROPHILS # 2.9 10^3/uL (1.8-7.7); NEUTROPHILS % 51.7 % (36.0-66.0); PLATELET COUNT, AUTOMATED 275 10^3/uL (150-450); RED BLOOD COUNT 3.45 10^6/uL (4.30-6.10); WHITE BLOOD COUNT 5.7 10^3/uL (4.0-10.0)
[2018-03-22 06:35] LABS: ALBUMIN 2.3 GM/DL (3.2-5.2); ALT/SGPT 17 U/L (12-78); BILIRUBIN,TOTAL 0.5 MG/DL (0.2-1.0); BLOOD UREA NITROGEN 6 MG/DL (7-18); C REACTIVE PROTEIN QUANTITATIV 7.76 MG/DL (0.00-0.30); CALCIUM LEVEL 7.3 MG/DL (8.8-10.2); CARBON DIOXIDE LEVEL 25 MEQ/L (21-32); CHLORIDE LEVEL 100 MEQ/L (98-107); CREATININE FOR GFR 0.64 MG/DL (0.70-1.30); GLOMERULAR FILTRATION RATE > 60.0 (>49); GLUCOSE, FASTING 141 MG/DL (70-100); MAGNESIUM LEVEL 1.6 MG/DL (1.8-2.4); POTASSIUM SERUM 3.3 MEQ/L (3.5-5.1); SODIUM LEVEL 131 MEQ/L (136-145)
[2018-03-22] MEDS ORDERED: POTASSIUM CHLORIDE 10 MEQ SR TABLET PO ONE (07:30)
[2018-03-22] MEDS: LISINOPRIL 40 MG TAB PO SCH (08:24)
[2018-03-22] MEDS: MULTIVITAMINS/MINERALS THERAP 1 TAB PO SCH (08:24)
[2018-03-22] MEDS: FOLIC ACID 1 MG TAB PO SCH (08:24)
[2018-03-22] MEDS: OSELTAMIVIR PHOSPHATE 75 MG CAP (TAMIFLU) PO SCH ×2 (08:24→19:59)
[2018-03-22] MEDS: OXAZEPAM 10 MG CAP PO SCH (08:24)
[2018-03-22] MEDS: ENOXAPARIN 40 MG/0.4 ML SYRINGE (J1650) SC SCH (08:25)
[2018-03-22] MEDS: TRIAMCINOLONE ACET 0.1% OINTMENT 15 GM EXT SCH (08:25)
[2018-03-22] MEDS: MAG SULF 1GM/100ML (MAG RUN) 1 GM in APPROPRIATE DILUENT 1 EA IV SCH ×2 (08:27→09:36)
--- NOTE | 2018-03-22 10:44 | REP ---
Chest x-ray: Two views. History: Flu. Comparison chest x-ray: March 19, 2018. Findings: There is extensive calcific pleural plaquing noted bilaterally. No infiltrate is seen. The lungs are hyperinflated overall. Pleural angles are sharp on the frontal view. They are obscured on the lateral radiograph by the and rales for the of wheelchair. Impression: Extensive calcific pleural plaquing again noted bilaterally. Hyperinflation. No infiltrate seen. Electronically Signed by Nestor Weiss MD 03/22/2018 10:37 A
--- NOTE | 2018-03-22 11:54 | PHACANCOPD ---
PHARMACY VANCOMYCIN DOSING Pt Demographics Demographics Patient Age:62 , Weight:51.500 , Gender: male Adjusted Body Weight Date: 03/21/18, Adjusted Body Weight: [51.5] Kg Events Past 24 Hours Events Past 24 Hours: YES: Change in CrCl; NO: Dialysis, Diuretic Therapy, Fever, Elevation in WBC, Pending Diagnostics, Pending Procedures, Other Vancomycin Vancomycin indication: sepsis Vancomycin Target Ranges: 15-20 mcg/ml Vancomycin Load Y/N: Yes Load Dose Date Time Vancomycin Load Dose: Date: Time: Vancomycin Dose Date: 03/22/18. Current Vancomycin Dose: [1G IV Q12H] Date: 03/21/18. Current Vancomycin Dose: [750 q8h] Intermittent Dosing?: No Labs Labs Item Value Date Time White Blood Count 11.5 10^3/uL H 03/20/18 0524 White Blood Count 7.1 10^3/uL 03/21/18 0553 White Blood Count 5.7 10^3/uL 03/22/18 0546 C-Reactive Protein, Quantitative 11.50 MG/DL H 03/21/18 0553 C-Reactive Protein, Quantitative 7.76 MG/DL H 03/22/18 0546 Creatinine 0.48 MG/DL L 03/21/18 0553 Creatinine 0.64 MG/DL L 03/22/18 0546 Vancomycin Level Trough 12.0 UG/ML 03/21/18 0553 Vancomycin Level Trough 23.4 UG/ML H 03/22/18 1055 Micro Microbiology 03/20/18 Blood Culture - Preliminary, Resulted No growth after 24 hours . All specim... 03/20/18 Blood Culture - Preliminary, Resulted No growth after 24 hours . All specim... 03/18/18 Blood Culture - Preliminary, Resulted No Growth after 72 hours. All specime... 03/18/18 Blood Culture - Preliminary, Resulted Staphylococcus Aureus 03/18/18 Respiratory Virus Panel (PCR) ([facility]) - Final, Complete Influenza A H1-2008 Creatinine Clearance Date:03/21/18. Creatinine Clearance: [>100]. Pending Labs Vanco trough due 03/23@1500 Assessment and Plan Maintaining Current Dose?: No Reason for dose change: Trough too high Pharmacist Note Pharmacist Note Date: 03/22/18. Pharmacist note:PT Trough came back today @11 at 23.4mcg/ml. The patients creatinine clearance has also decreased from 145ml/min yesterday to 109ml/min today. The dose will be changed to 1g iv every 12 hours and start03/22/18 @ 16. A trough is scheduled for 03/23/18 @15:00. We will continue to monitor and adjust dose as needed. Date: 03/21/18. Pharmacist note:Vancomycin trough drawn this morning reported as 12.0. Will order 1 gram for 0700,then adjust regimen to 750mg [id number](had been 1 gram iv [id number])Trough ordered for tomorrow @1100-will continue to follow [facility] Mar 22, 2018 11:54
--- NOTE | 2018-03-22 12:49 | IPNPDOC ---
Text Note Date of Service The patient was seen on 03/22/18. NOTE Subjective: Patient is a 62-year-old male with a past history of HTN, Alcoholism who presented to the ER, brought in by his because of confusion. As per the , patient has been having progressive worsening mentation over 3 weeks. In the ER patient was suspected to have alcohol withdrawal, and was admitted to the hospitalist service for further evaluation and treatment. As per the daughter, patient is reported to have heavy alcohol consumption daily. Patient was seen and examined at the bedside. Patient used to have improvement of his mentation. He is oriented to person, place and time. He is unsure who the president is. He denies any chest pain, shortness of breath or palpitations. Denies nausea, vomiting, abdominal pain, constipation, diarrhea or any burning or discomfort with urination. Objective: Vitals (See below) General: Lying in bed, no acute distress, comfortable, Awake / Alert, Oriented x 3 (time = only to year) HEENT: NC, AT CVS: RRR, +S1S2 Lungs: Fair air entry b/l, there does not appear to be auscultated evidence of rhonchi, rales or wheezing Abdomen: Soft, nondistended, without tenderness Extremities: No evidence of LE edema, - Calf tenderness Assessment and plan: Acute metabolic encephalpathy - possibly 2/2 alcohol withdrawal, possibly 2/2 dementia - Patient's family has noted progressive decline of mentation - Physical without focal weakness - CT head 2/3: Age related atrophy and microvascular ischemic changes. No acute intracranial hemorrhage, infarction, or mass/mass effect. Ethmoid sinusitis. - Repeat thyroid function noted, RPR non-reactive, Folate >24, B12 pending - MRI brain 2/3: 1. Small amount of thick secretions maxillary sinuses. Opacif ication of the ethmoid sinuses probably changes of sinusitis. Underlying polyps not excluded. 2. Low signal intensity through the basal ganglia bilaterally may be metallic deposition. This can be seen Parkinson's disease. 3. Moderate enlargement of ventricles and cerebral sulci may all be the result of atrophy. Communicating type hydrocephalus can give an identical appearance. I would recommend c orrelation with the patient's clinical findings. - c/w PT / OT as tolerated Alcohol withdrawal - c/w [facility] protocol - c/w Serax; dose reduced - c/w Ativan PRN Fever - likely 2/2 Influenza / Sinusitis / CAP - No respiratory difficulty noted - Saturating well on room air - s/p leucocytosis; no lactic acidosis, CRP trending down - Respiratory panel 2: Influenza A - CXR 22: Partially calcified pleural plaques and chronic appearing interstitial changes. No obvious acute consolidation or effusion. - CXR 2/: Chronic stable pleuroparenchymal changes. Cannot exclude very subtle early left lower lobe infiltrate. - CXR 03/22: Extensive calcific pleural plaquing again noted bilaterally. Hyperinflation. No infiltrate seen. - c/w Oseltamivir (Day #5) and Levaquin (Day #4) Gram positive bacteremia - 2 Staph aureus - Blood culture 03/18: (1 of 2 bottles positive); Staph aureus - Blood culture 03/20: Pending - c/w Vancomycin (Day #4) - ECHO 03/22: Complete; report pending - Infectious disease (Dr. Uribe) on consultation; appreciate their input s/p RUQ abdominal pain - etiology unclear, possibly 2/2 alcoholic hepatitis - Complains of abdominal tenderness on physical exam - Mild elevation of AST - supporting alcoholic hepatitis - CT abdomen / pelvis 03/19: 1. Chronic stable changes. 2. No obvious acute abdominopelvic pathology appreciated. - US abdomen 03/20: 1. Gallbladder demonstrates adenomyomatosis and small polyps to 2 mm. 2. A minuscule amount of perihepatic fluid is nonspecific. Hyponatremia - likely 2/2 hypotonic, hypovolemic; less likely 2/2 hypotonic, euvolemic - Sodium continues to trend toward normal - Will restart IV fluid hydration Rhabdomyolysis - CK trending down GI prophylaxis - c/w Protonix DVT prophylaxis - c/w Lovenox Disposition: - Awaiting clinical improvement VS,Jeison, I+O VS, Jeison, I+O Laboratory Tests 03/22/18 05:46 Red Blood Count 3.45 L, Mean Corpuscular Volume 98.0 H, Mean Corpuscular Hemoglobin 35.7 H, Mean Corpuscular Hemoglobin Concent 36.4, Red Cell Dis tribution Width 12.2, Neutrophils (%) (Auto) 51.7, Lymphocytes (%) (Auto) 26.6, Monocytes (%) (Auto) 18.7 H, Eosinophils (%) (Auto) 1.6, Basophils (%) (Auto) 0.5, Neutrophils # (Auto) 2.9, Lymphocytes # (Auto) 1.5, Monocytes # (Auto) 1.1 H, Eosinophils # (Auto) 0.1, Basophils # (Auto) 0.0, Calcium Level 7.3 L, Aspartate Amino Transf (AST/SGOT) 15, Alanine Aminotransferase (ALT/SGPT) 17, Alkaline Phosphatase 48, Total Bilirubin 0.5, Total Protein 6.0 L, Albumin 2.3 L Vital Signs Date Time Temp Pulse Resp B/P (MAP) Pulse Ox O2 Delivery O2 Flow Rate FiO2 03/22/18 12:10 158/76 03/22/18 12:00 97.5 86 17 96 03/19/18 17:00 Room Air I&O- Last 24 Hours up to 6 AM 03/22/18 06:00 Intake Total 1405 ml Output Total 950 ml Balance 455 ml RAE MCNAMARA MD Mar 22, 2018 12:49
[2018-03-22] MEDS ORDERED: POTASSIUM CHLORIDE INJ 20 MEQ in NS 1,000 ML IV SCH (13:00)
[2018-03-22] MEDS: KCL 20MEQ in NS 1000ML 1,000 ML IV SCH (13:55)
[2018-03-22] MEDS: PANTOPRAZOLE 40MG INJ (PROTONIX) (C9113) IV SCH (13:55)
[2018-03-22] MEDS: VANCOMYCIN HCL 1,000 MG, VIAL MATE ADAPTER 1 EACH in D5W 250 ML IV SCH (16:45)
[2018-03-22 18:18] LABS: BLOOD UREA NITROGEN 7 MG/DL (7-18); CALCIUM LEVEL 7.6 MG/DL (8.8-10.2); CARBON DIOXIDE LEVEL 25 MEQ/L (21-32); CHLORIDE LEVEL 102 MEQ/L (98-107); CREATININE FOR GFR 0.86 MG/DL (0.70-1.30); GLOMERULAR FILTRATION RATE > 60.0 (>49); GLUCOSE, FASTING 188 MG/DL (70-100); MAGNESIUM LEVEL 2.2 MG/DL (1.8-2.4); POTASSIUM SERUM 3.8 MEQ/L (3.5-5.1); SODIUM LEVEL 133 MEQ/L (136-145)
[2018-03-22] MEDS ORDERED: OXAZEPAM 10 MG CAP PO PRN (21:00)
[2018-03-23] VITALS: BP 170/86
[2018-03-23 04:00] VITALS: BP 160/72
[2018-03-23] MEDS: VANCOMYCIN HCL 1,000 MG, VIAL MATE ADAPTER 1 EACH in D5W 250 ML IV SCH ×2 (05:01→17:13)
[2018-03-23] MEDS: KCL 20MEQ in NS 1000ML 1,000 ML IV SCH ×2 (05:40→22:20)
[2018-03-23] MEDS: SLF 3 ML SYR IV SCH ×3 (06:00→19:44)
[2018-03-23] MEDS: hydrALAZINE INJ 20 MG/ML VIAL IV SCH ×5 (06:00→23:24)
[2018-03-23 06:01] LABS: BASO # 0.1 10^3/uL (0.0-0.2); BASO % 0.9 % (0.0-1.0); EOS # 0.1 10^3/uL (0.0-0.50); EOS % 1.6 % (0.0-3.0); HEMATOCRIT 31.6 % (42.0-52.0); HEMOGLOBIN 11.4 g/dl (13.5-17.5); LYMPH # 1.4 10^3/uL (1.5-4.5); LYMPH % 24.3 % (24.0-44.0); MEAN CORPUSCULAR HEMOGLOBIN 35.1 pg (27.0-33.0); MEAN CORPUSCULAR HGB CONC 36.1 g/dl (32.0-36.5); MEAN CORPUSCULAR VOLUME 97.2 fl (80.0-96.0); MONO # 1.1 10^3/uL (0.0-0.8); MONO % 19.1 % (0.0-5.0); NEUTROPHILS # 3.1 10^3/uL (1.8-7.7); NEUTROPHILS % 53.4 % (36.0-66.0); PLATELET COUNT, AUTOMATED 315 10^3/uL (150-450); RED BLOOD COUNT 3.25 10^6/uL (4.30-6.10); WHITE BLOOD COUNT 5.8 10^3/uL (4.0-10.0)
[2018-03-23 06:21] LABS: ALBUMIN 2.2 GM/DL (3.2-5.2); ALT/SGPT 17 U/L (12-78); BILIRUBIN,TOTAL 0.5 MG/DL (0.2-1.0); BLOOD UREA NITROGEN 8 MG/DL (7-18); CALCIUM LEVEL 7.6 MG/DL (8.8-10.2); CARBON DIOXIDE LEVEL 24 MEQ/L (21-32); CHLORIDE LEVEL 102 MEQ/L (98-107); CREATININE FOR GFR 0.76 MG/DL (0.70-1.30); GLOMERULAR FILTRATION RATE > 60.0 (>49); GLUCOSE, FASTING 150 MG/DL (70-100); MAGNESIUM LEVEL 2.1 MG/DL (1.8-2.4); POTASSIUM SERUM 3.8 MEQ/L (3.5-5.1); SODIUM LEVEL 132 MEQ/L (136-145); TOTAL PROTEIN 5.9 GM/DL (6.4-8.2)
--- NOTE | 2018-03-23 06:28 | ECHO ---
DATE OF STUDY: 03/22/2018 REFERRING PHYSICIAN: Dr. Jamie Bowling INDICATION: Staphylococcus aureus bacteremia. HEIGHT: 170 cm. WEIGHT: 55 kg. 2-D MEASUREMENTS: Aortic annulus: 2.0 Aortic root: 3.6 cm Left atrium: 2.9 cm Ventricular septum: 0.99 cm Posterior wall: 1.00 cm Proximal ascending aorta: 3.3 cm Inferior vena cava: 1.4 cm with more than 50% respiratory variation Left atrial volume index: 26 DOPPLER MEASUREMENTS: Aortic valve velocity: 132 cm/sec LVOT velocity: 130 cm/sec LVOT VTI: 21.7 cm Mitral E velocity: 66.7 cm/sec Mitral A velocity: 73.5 cm/sec Mitral deceleration time: 208 ms Very mild mitral regurgitation Estimated right ventricular systolic pressure 28 mmHg assuming a right atrial pressure of 5 mmHg Pulmonary artery systolic pressure: 28 mmHg MITRAL ANNULAR TISSUE DOPPLER: E prime septal: 6.9 cm/sec E prime lateral: 5.3 cm/sec DESCRIPTION: The rhythm was sinus. Image quality was good. No pericardial effusion. This was a 2-D, M-mode, color flow Doppler and pulse wave Doppler examination and included mitral annular tissue Doppler. CONCLUSIONS: 1. No vegetations identified on any of the cardiac valves. 2. Normal left ventricle internal dimensions and wall thickness. Normal regional LV wall motion and wall thickening. Normal LV systolic function. LVEF 65% by visual estimate. Grade 1 LV diastolic dysfunction (impaired relaxation filling pattern). 3. Mild aortic valve sclerosis of a 3-cuspid aortic valve. No aortic regurgitation. 4. Mild mitral annular calcification. No mitral regurgitation. 5. Otherwise normal appearing echocardiogram-Doppler findings.
[2018-03-23 08:00] VITALS: BP 138/74
[2018-03-23] MEDS: LISINOPRIL 40 MG TAB PO SCH (08:56)
[2018-03-23] MEDS: FOLIC ACID 1 MG TAB PO SCH (08:56)
[2018-03-23] MEDS: MULTIVITAMINS/MINERALS THERAP 1 TAB PO SCH (08:56)
[2018-03-23] MEDS: OSELTAMIVIR PHOSPHATE 75 MG CAP (TAMIFLU) PO SCH ×2 (08:57→19:44)
[2018-03-23] MEDS: TRIAMCINOLONE ACET 0.1% OINTMENT 15 GM EXT SCH (08:57)
[2018-03-23] MEDS: ENOXAPARIN 40 MG/0.4 ML SYRINGE (J1650) SC SCH (08:57)
[2018-03-23 12:00] VITALS: BP 180/84
--- NOTE | 2018-03-23 14:20 | EEG ---
DATE OF PROCEDURE: 03/21/2018 REFERRING PHYSICIAN: Dr. Chloe Booker DIAGNOSIS: Confusion. EEG NUMBER: [id number] HISTORY: The patient is a 62-year-old man who was admitted at [facility] with history of confusion, alcoholism, hypertension. He had progressive worsening of his mentation over the last 3 weeks. The patient was suspected to have alcohol withdrawal. This EEG was done to rule out epileptic potential and assess degree of encephalopathy. The patient is currently taking vancomycin, levofloxacin, thiamine, folic acid, multivitamin, oxazepam. TECHNICAL DESCRIPTION: This digital EEG was recorded by 21 scalp, ear and two EKG electrodes and was reviewed in bipolar and referential montages following reformatting in 10-20 international echo placement system. INTERPRETATION: The patient remained drowsy and confused throughout this EEG. The patient was pulling on wires. The patient had fever and lot of sweating and electrodes kept coming off. In readable portions of this EEG background rhythm consisted of 5 - 6 Hz theta activity measuring 15 - 30 microvolts in amplitude, which was symmetric bilaterally. Hyperventilation could not be performed. Photic stimulation remained unremarkable. EKG leads were affected by artifact. Excessive muscle and electrode artifact was seen in bilateral frontal and temporal head region throughout this recording. No epileptiform abnormalities were seen. CONCLUSION: This EEG in a drowsy and confused patient is severely affected by electrode and muscle artifacts. In readable portions of this EEG, background rhythm showed generalized slowing consistent with nonspecific diffuse cerebral dysfunction, such as seen in encephalopathy due to multiple potential causes, including toxic, metabolic, infectious, alcohol withdrawal, structural brain abnormality or medication effects. Clinical correlation is recommended.
[2018-03-23] MEDS: PANTOPRAZOLE 40MG INJ (PROTONIX) (C9113) IV SCH (15:04)
[2018-03-23 16:00] VITALS: BP 177/78
[2018-03-23 20:00] VITALS: BP 170/80
[2018-03-24] VITALS: BP 181/84
[2018-03-24] MEDS ORDERED: CARVedilol 3.125 MG TAB PO ONE (00:30)
[2018-03-24 04:00] VITALS: BP 190/60
[2018-03-24] MEDS: VANCOMYCIN HCL 1,000 MG, VIAL MATE ADAPTER 1 EACH in D5W 250 ML IV SCH (04:00)
[2018-03-24] MEDS ORDERED: **hydrALAZINE HCL** 25 MG TAB PO ONE (04:15)
[2018-03-24 05:40] LABS: BASO # 0.1 10^3/uL (0.0-0.2); BASO % 1.2 % (0.0-1.0); EOS # 0.2 10^3/uL (0.0-0.50); EOS % 2.7 % (0.0-3.0); HEMATOCRIT 32.5 % (42.0-52.0); HEMOGLOBIN 11.3 g/dl (13.5-17.5); LYMPH # 1.6 10^3/uL (1.5-4.5); LYMPH % 26.5 % (24.0-44.0); MEAN CORPUSCULAR HEMOGLOBIN 34.6 pg (27.0-33.0); MEAN CORPUSCULAR HGB CONC 34.8 g/dl (32.0-36.5); MEAN CORPUSCULAR VOLUME 99.4 fl (80.0-96.0); MONO # 1.1 10^3/uL (0.0-0.8); MONO % 19.4 % (0.0-5.0); NEUTROPHILS # 2.9 10^3/uL (1.8-7.7); NEUTROPHILS % 49.4 % (36.0-66.0); PLATELET COUNT, AUTOMATED 334 10^3/uL (150-450); RED BLOOD COUNT 3.27 10^6/uL (4.30-6.10); WHITE BLOOD COUNT 5.9 10^3/uL (4.0-10.0)
[2018-03-24] MEDS: SLF 3 ML SYR IV SCH ×3 (05:43→20:30)
[2018-03-24 05:58] LABS: ALT/SGPT 19 U/L (12-78); BILIRUBIN,TOTAL 0.6 MG/DL (0.2-1.0); BLOOD UREA NITROGEN 8 MG/DL (7-18); CALCIUM LEVEL 7.4 MG/DL (8.8-10.2); CARBON DIOXIDE LEVEL 24 MEQ/L (21-32); CHLORIDE LEVEL 105 MEQ/L (98-107); CREATININE FOR GFR 0.77 MG/DL (0.70-1.30); GLOMERULAR FILTRATION RATE > 60.0 (>49); GLUCOSE, FASTING 118 MG/DL (70-100); POTASSIUM SERUM 3.9 MEQ/L (3.5-5.1); SODIUM LEVEL 135 MEQ/L (136-145)
[2018-03-24 05:59] LABS: ALBUMIN 2.1 GM/DL (3.2-5.2); C REACTIVE PROTEIN QUANTITATIV 2.79 MG/DL (0.00-0.30); MAGNESIUM LEVEL 1.7 MG/DL (1.8-2.4); TOTAL PROTEIN 5.9 GM/DL (6.4-8.2)
[2018-03-24] MEDS: hydrALAZINE INJ 20 MG/ML VIAL IV SCH ×3 (06:00→17:39)
[2018-03-24 06:02] LABS: ERYTHROCYTE SEDIMENTATION RATE 56 mm/hr (0-20)
[2018-03-24 08:00] VITALS: BP 154/74
[2018-03-24] MEDS: TRIAMCINOLONE ACET 0.1% OINTMENT 15 GM EXT SCH (09:12)
[2018-03-24] MEDS: OSELTAMIVIR PHOSPHATE 75 MG CAP (TAMIFLU) PO SCH ×2 (09:12→20:29)
[2018-03-24] MEDS: MULTIVITAMINS/MINERALS THERAP 1 TAB PO SCH (09:13)
[2018-03-24] MEDS: FOLIC ACID 1 MG TAB PO SCH (09:13)
[2018-03-24] MEDS: ENOXAPARIN 40 MG/0.4 ML SYRINGE (J1650) SC SCH (09:13)
[2018-03-24] MEDS: CARVedilol 3.125 MG TAB PO SCH ×2 (09:15→20:28)
[2018-03-24] MEDS: LISINOPRIL 40 MG TAB PO SCH (09:16)
[2018-03-24 12:47] VITALS: BP 160/70
[2018-03-24] MEDS: PANTOPRAZOLE 40MG INJ (PROTONIX) (C9113) IV SCH (14:00)
[2018-03-24 16:00] VITALS: BP 176/80
[2018-03-24 17:17] LABS: BLOOD UREA NITROGEN 9 MG/DL (7-18); CALCIUM LEVEL 7.5 MG/DL (8.8-10.2); CARBON DIOXIDE LEVEL 24 MEQ/L (21-32); CHLORIDE LEVEL 104 MEQ/L (98-107); CREATININE FOR GFR 0.74 MG/DL (0.70-1.30); GLOMERULAR FILTRATION RATE > 60.0 (>49); GLUCOSE, FASTING 97 MG/DL (70-100); MAGNESIUM LEVEL 1.7 MG/DL (1.8-2.4); POTASSIUM SERUM 4.2 MEQ/L (3.5-5.1); SODIUM LEVEL 133 MEQ/L (136-145)
--- NOTE | 2018-03-24 18:11 | IPN ---
DATE: 03/24/2018 Raman is doing well. He has no complaints except for mild cough. No fever or chills. He is hungry for lunch. He has been afebrile since 03/21. LABORATORY DATA: White count is 5.9, hemoglobin 11.3, hematocrit 32.5, platelets 334, 49% neutrophils, 26% lymphocytes, 18% monocytes. ESR 56. Sodium 135, potassium 3.9, chloride 105, bicarbonate 24, BUN 8, creatinine 0.7, glucose 118, calcium 7.4, magnesium 1.7, AST 20, ALT 19, alkaline phosphatase 48, C-reactive protein (CRP) 2.79 down from 11.5. Blood culture on 03/18 was read as Staphylococcus aureus. I have called the lab. The culture is a contaminant. It is actually identified as Alloiococcus otitis, which is a contaminant. Chest x-ray showed no acute infiltrate on 03/22, PA and lateral. On physical exam, thin looking man in no acute distress. Temperature is 98.2, pulse 95, respirations 18, blood pressure was 154/74, oxygen saturation 96% on room air. Heart: Normal S1-S2. No murmurs. Lungs: Very diminished air entry. A few expiratory wheezes. Abdomen is soft, nontender. No visceromegaly. Extremities: No edema. Skin rash from dermatitis improved. IMPRESSION: 1. Influenza on Oseltamivir 75 mg by mouth twice a day currently day number day 6 out of 10. 2. Blood culture contamination. It is not a Staphylococcus aureus. This will be corrected by microbiology. Repeat blood cultures on 03/20 are negative. No evidence of pneumonia. 3. History of alcoholism with normal liver function tests. Hepatitis C antibody negative. PLAN: Continue Tamiflu for a total of 10 days. Discontinue IV vancomycin. Consider switching hydralazine to by mouth still on IV dosing. MTDD
[2018-03-24 19:34] VITALS: BP 178/84
[2018-03-24] MEDS: MAGNESIUM OXIDE 400 MG TAB (MAG-OX) PO SCH (20:29)
--- NOTE | 2018-03-24 21:06 | IPNPDOC ---
Date Seen The patient was seen on 03/24/18. Progress Note SUBJECTIVE: Patient denied any symptoms at this time. OBJECTIVE - vitals stable but BP remains high REVIEW OF SYSTEMS: All 14 points ROS is negative except what's stated above PHYSICAL EXAMINATION: GEN: no acute distress HEENT : no lymphadenopathy, PERRLA , no oropharyngeal erythema or exudates CVS: Normal S1/s2, no murmurs, rubs or gallops, RESP: Lungs are clear to auscultation bilaterally, no crackles, wheezes or rhonchi Abd: soft, nontender, nondistended, + BS MSK: full ROM, 5/5 strength in all extremities Integumentary: no rash or bruises Neuro: AOAx3, no focal deficit psych: normal mood, good judgement and cooperative LABORATORY DATA, IMAGING STUDIES, MICROBIOLOGY: Please see below. ASSESSMENT AND PLAN: etoh withdrawal - ciwa 0 hypertension- c/.w po meds , switched iv hydralazine to po f/u repeat BP - if doesn't get worse, continue adjust po meds and down grade to regular floor influenza A - ID follwing , c/w osetalmivir for a total of 10 days . - day6 dvt ppx full code VS, I&O, 24H, Fishbone Vital Signs/I&O Vital Signs Date Time Temp Pulse Resp B/P (MAP) Pulse Ox O2 Delivery O2 Flow Rate FiO2 03/24/18 19:34 99.1 95 18 178/84 (115) 96 03/19/18 17:00 Room Air I&O- Last 24 Hours up to 6 AM 03/24/18 06:00 Intake Total 870 ml Output Total 650 ml Balance 220 ml Laboratory Data 24H LABS Laboratory Tests 2 03/24/18 04:53: Immature Granulocyte % (Auto) 0.8, White Blood Count 5.9, Red Blood Count 3.27L, Hemoglobin 11.3L, Hematocrit 32.5L, Mean Corpuscular Volume 99.4H, Mean Corpuscular Hemoglobin 34.6H, Mean Corpuscular Hemoglobin Concent 34.8, Red Cell Distribution Width 12.5, Platelet Count 334, Neutrophils (%) (Auto) 49.4, Lymphocytes (%) (Auto) 26.5, Monocytes (%) (Auto) 19.4H, Eosinophils (%) (Auto) 2.7, Basophils (%) (Auto) 1.2H, Neutrophils # (Auto) 2.9, Lymphocytes # (Auto) 1.6, Monocytes # (Auto) 1.1H, Eosinophils # (Auto) 0.2, Basophils # (Auto) 0.1, Nucleated Red Blood Cells % (auto) 0.0, Erythrocyte Sedimentation Rate 56H, Anion Gap 6L, Glomerular Filtration Rate > 60.0, Blood Urea Nitrogen 8, Creatinine 0.77, Sodium Level 135L, Potassium Level 3.9, Chloride Level 105, Carbon Dioxide Level 24, Calcium Level 7.4L, Aspartate Amino Transf (AST/SGOT) 20, Alanine Aminotransferase (ALT/SGPT) 19, Alkaline Phosphatase 48, Total Bilirubin 0.6, Total Protein 5.9L, Albumin 2.1L, Magnesium Level 1.7L, C- Reactive Protein, Quantitative 2.79H, Albumin/Globulin Ratio 0.55L 03/24/18 16:30: Anion Gap 5L, Glomerular Filtration Rate > 60.0, Blood Urea Nitrogen 9, Creatinine 0.74, Sodium Level 133L, Potassium Level 4.2, Chloride Level 104, Carbon Dioxide Level 24, Calcium Level 7.5L, Magnesium Level 1.7L CBC/BMP Laboratory Tests 03/24/18 04:53 Red Blood Count 3.27 L, Mean Corpuscular Volume 99.4 H, Mean Corpuscular Hemoglobin 34.6 H, Mean Corpuscular Hemoglobin Concent 34.8, Red Cell Distribution Width 12.5, Neutrophils (%) (Auto) 49.4, Lymphocytes (%) (Auto) 26.5, Monocytes (%) (Auto) 19.4 H, Eosinophils (%) (Auto) 2.7, Basophils (%) (Auto) 1.2 H, Neutrophils # (Auto) 2.9, Lymphocytes # (Auto) 1.6, Monocytes # (Auto) 1.1 H, Eosinophils # (Auto) 0.2, Basophils # (Auto) 0.1, Calcium Level 7.4 L, Aspartate Amino Transf (AST/SGOT) 20, Alanine Aminotransferase (ALT/SGPT) 19, Alkaline Phosphatase 48, Total Bilirubin 0.6, Total Protein 5.9 L, Albumin 2.1 L 03/24/18 16:30 Calcium Level 7.5 L Microbiology Microbiology 03/20/18 Blood Culture - Preliminary, Resulted No Growth after 72 hours. All specime... 03/20/18 Blood Culture - Preliminary, Resulted No Growth after 72 hours. All specime... 03/18/18 Blood Culture - Final, Complete NO GROWTH AFTER 5 DAYS 03/18/18 Blood Culture - Preliminary, Resulted Staphylococcus Aureus 03/18/18 Respiratory Virus Panel (PCR) ([facility]OS[facility]IGUEL) - Final, Complete Influenza A H1-2009 JACQUI SMILEY MD Mar 24, 2018 21:06
--- NOTE | 2018-03-24 21:19 | HPE ---
DATE OF ADMISSION: 03/18/2018 This is a 62-year-old male with a past medical history of hypertension, alcoholism, who came to the emergency room with his because of confusion. The patient has been having progressive worsening mentation over the last 3 weeks. The patient is alert and oriented times three. He did not know who the president was. He knew the month, day and year. Pupils are equal and reactive to light. Extraocular muscles intact. Conjunctivae clear. No facial asymmetry. Pharynx, gums and tongue pink and moist. Tongue is midline. NECK: Supple without lymphadenopathy, thyromegaly or goiter. He had been admitted. He had a positive influenza and was treated with Tamiflu. He had a MRI reviewed by Dr. Austin. He had Tamiflu for 5 days. Consult has been ordered with Dr. Uribe LABORATORY STUDIES: White count is normal. Hemoglobin and hematocrit is 11.4 and 31.6. WBC 9.2, platelets 196. Neutrophils 72.5. Blood pressure has been up slightly. Prior to admission, he had been on Lisinopril 40 mg by mouth daily and we will resume that. We will followup on cultures done in the emergency room. Echocardiogram was done. It showed sinus rhythm. No pericardial effusion. Echo showed no vegetations identified on any of the cardiac valves. Normal left ventricular function dimensions. Left ventricular ejection fraction of 65%. Mild aortic valve sclerosis and a three-cusp aortic valve. No aortic regurgitation. Grade 1 LV diastolic dysfunction. Mild aortic valve occlusion of a three cusp aortic valve. Sodium was 132, potassium 3.8, chloride 102. The patient will be admitted to the medical floor. Consult with Dr. Uribe.
[2018-03-24] MEDS: **hydrALAZINE** 50 MG TAB PO SCH (22:06)
[2018-03-25] VITALS: BP 167/75
[2018-03-25 04:00] VITALS: BP 157/88
[2018-03-25 05:32] LABS: BASO # 0.1 10^3/uL (0.0-0.2); BASO % 1.1 % (0.0-1.0); EOS # 0.3 10^3/uL (0.0-0.50); EOS % 3.9 % (0.0-3.0); HEMATOCRIT 32.1 % (42.0-52.0); HEMOGLOBIN 11.4 g/dl (13.5-17.5); LYMPH # 1.8 10^3/uL (1.5-4.5); LYMPH % 27.5 % (24.0-44.0); MEAN CORPUSCULAR HEMOGLOBIN 34.9 pg (27.0-33.0); MEAN CORPUSCULAR HGB CONC 35.5 g/dl (32.0-36.5); MEAN CORPUSCULAR VOLUME 98.2 fl (80.0-96.0); MONO # 1.3 10^3/uL (0.0-0.8); MONO % 19.7 % (0.0-5.0); NEUTROPHILS # 3.1 10^3/uL (1.8-7.7); PLATELET COUNT, AUTOMATED 362 10^3/uL (150-450); RED BLOOD COUNT 3.27 10^6/uL (4.30-6.10); WHITE BLOOD COUNT 6.7 10^3/uL (4.0-10.0)
[2018-03-25 06:06] LABS: ALBUMIN 2.3 GM/DL (3.2-5.2); ALT/SGPT 23 U/L (12-78); BILIRUBIN,TOTAL 0.5 MG/DL (0.2-1.0); BLOOD UREA NITROGEN 9 MG/DL (7-18); C REACTIVE PROTEIN QUANTITATIV 1.72 MG/DL (0.00-0.30); CALCIUM LEVEL 7.8 MG/DL (8.8-10.2); CARBON DIOXIDE LEVEL 26 MEQ/L (21-32); CHLORIDE LEVEL 103 MEQ/L (98-107); CREATININE FOR GFR 0.77 MG/DL (0.70-1.30); GLOMERULAR FILTRATION RATE > 60.0 (>49); GLUCOSE, FASTING 95 MG/DL (70-100); MAGNESIUM LEVEL 1.8 MG/DL (1.8-2.4); SODIUM LEVEL 135 MEQ/L (136-145); TOTAL PROTEIN 6.1 GM/DL (6.4-8.2)
[2018-03-25] MEDS: **hydrALAZINE** 50 MG TAB PO SCH ×3 (06:10→22:37)
[2018-03-25] MEDS: SLF 3 ML SYR IV SCH ×4 (06:11→22:39)
[2018-03-25 08:00] VITALS: BP 159/90
[2018-03-25] MEDS: LISINOPRIL 40 MG TAB PO SCH (08:28)
[2018-03-25] MEDS: ENOXAPARIN 40 MG/0.4 ML SYRINGE (J1650) SC SCH (08:28)
[2018-03-25] MEDS: OSELTAMIVIR PHOSPHATE 75 MG CAP (TAMIFLU) PO SCH ×2 (08:28→20:32)
[2018-03-25] MEDS: CARVedilol 3.125 MG TAB PO SCH ×2 (08:28→20:33)
[2018-03-25] MEDS: MULTIVITAMINS/MINERALS THERAP 1 TAB PO SCH (08:29)
[2018-03-25] MEDS: TRIAMCINOLONE ACET 0.1% OINTMENT 15 GM EXT SCH (08:29)
[2018-03-25] MEDS: FOLIC ACID 1 MG TAB PO SCH (08:29)
[2018-03-25] MEDS: MAGNESIUM OXIDE 400 MG TAB (MAG-OX) PO SCH ×2 (08:29→20:32)
--- NOTE | 2018-03-25 10:50 | IPN ---
DATE: 03/25/2018 Raman is seen in progressive care unit (PCU). Denies any chest pain, shortness of breath, or wheeze. He had one blood culture that was negative, one blood culture grew out Alloiococcus. Three blood cultures have been negative, infectious disease recommends not treating this. PHYSICAL EXAMINATION: Afebrile. Blood pressure 159/90. Lungs clear. Heart has regular rhythm. 1/6 systolic ejection murmur. Abdomen is soft, nontender, no masses. No ascites. No peripheral edema. LABORATORIES: CBC is unremarkable. Electrolytes are unremarkable. IMPRESSION: 1. Influenza. Continue Tamiflu for 10 day course. 2. Hypertension. Blood pressure is under adequate control on his current medications. Echocardiogram showed normal ejection fraction, just grade 1 diastolic dysfunction, which is normal for age. 3. Acute alcohol withdrawal. He is past a majority of this and no longer requires any Serax. I do not know what the disposition plans are. We will have to see what patient and family services (PFS) has planned for him on Tuesday.
[2018-03-25 12:00] VITALS: BP 167/77
[2018-03-25] MEDS: PANTOPRAZOLE 40MG TAB (PROTONIX) PO SCH (12:01)
[2018-03-25 16:00] VITALS: BP 163/84
[2018-03-25 20:00] VITALS: BP 162/84
[2018-03-26] VITALS: BP 166/76
[2018-03-26 04:00] VITALS: BP 140/65
[2018-03-26 05:44] LABS: BASO # 0.1 10^3/uL (0.0-0.2); BASO % 0.8 % (0.0-1.0); EOS # 0.3 10^3/uL (0.0-0.50); HEMATOCRIT 31.9 % (42.0-52.0); HEMOGLOBIN 11.3 g/dl (13.5-17.5); LYMPH # 1.9 10^3/uL (1.5-4.5); LYMPH % 30.1 % (24.0-44.0); MEAN CORPUSCULAR HEMOGLOBIN 34.6 pg (27.0-33.0); MEAN CORPUSCULAR HGB CONC 35.4 g/dl (32.0-36.5); MEAN CORPUSCULAR VOLUME 97.6 fl (80.0-96.0); MONO # 1.2 10^3/uL (0.0-0.8); MONO % 18.4 % (0.0-5.0); NEUTROPHILS # 2.9 10^3/uL (1.8-7.7); NEUTROPHILS % 46.1 % (36.0-66.0); PLATELET COUNT, AUTOMATED 406 10^3/uL (150-450); RED BLOOD COUNT 3.27 10^6/uL (4.30-6.10); WHITE BLOOD COUNT 6.3 10^3/uL (4.0-10.0)
[2018-03-26 06:03] LABS: ALBUMIN 2.4 GM/DL (3.2-5.2); ALT/SGPT 18 U/L (12-78); BILIRUBIN,TOTAL 0.6 MG/DL (0.2-1.0); BLOOD UREA NITROGEN 10 MG/DL (7-18); C REACTIVE PROTEIN QUANTITATIV 1.31 MG/DL (0.00-0.30); CALCIUM LEVEL 7.7 MG/DL (8.8-10.2); CARBON DIOXIDE LEVEL 28 MEQ/L (21-32); CHLORIDE LEVEL 102 MEQ/L (98-107); CREATININE FOR GFR 0.86 MG/DL (0.70-1.30); GLOMERULAR FILTRATION RATE > 60.0 (>49); GLUCOSE, FASTING 96 MG/DL (70-100); MAGNESIUM LEVEL 1.9 MG/DL (1.8-2.4); POTASSIUM SERUM 3.8 MEQ/L (3.5-5.1); SODIUM LEVEL 135 MEQ/L (136-145); TOTAL PROTEIN 6.4 GM/DL (6.4-8.2)
[2018-03-26] MEDS: **hydrALAZINE** 50 MG TAB PO SCH ×3 (06:23→21:40)
[2018-03-26 08:00] VITALS: BP 137/65
[2018-03-26] MEDS: MULTIVITAMINS/MINERALS THERAP 1 TAB PO SCH (08:43)
[2018-03-26] MEDS: MAGNESIUM OXIDE 400 MG TAB (MAG-OX) PO SCH ×2 (08:43→21:40)
[2018-03-26] MEDS: FOLIC ACID 1 MG TAB PO SCH (08:44)
[2018-03-26] MEDS: CARVedilol 3.125 MG TAB PO SCH (08:44)
[2018-03-26] MEDS: PANTOPRAZOLE 40MG TAB (PROTONIX) PO SCH (08:44)
[2018-03-26] MEDS: LISINOPRIL 40 MG TAB PO SCH (08:44)
[2018-03-26] MEDS: ENOXAPARIN 40 MG/0.4 ML SYRINGE (J1650) SC SCH (08:45)
[2018-03-26] MEDS: OSELTAMIVIR PHOSPHATE 75 MG CAP (TAMIFLU) PO SCH ×2 (08:45→21:40)
[2018-03-26] MEDS: TRIAMCINOLONE ACET 0.1% OINTMENT 15 GM EXT SCH (08:45)
[2018-03-26 12:00] VITALS: BP 136/62
[2018-03-26] MEDS: SLF 3 ML SYR IV SCH ×2 (13:33→21:40)
[2018-03-26 16:00] VITALS: BP 132/68
[2018-03-26 20:00] VITALS: BP 165/78
[2018-03-26] MEDS: CARVedilol 6.25 MG TAB PO SCH (21:40)
[2018-03-27] VITALS: BP 162/73
[2018-03-27 03:00] VITALS: BP 165/76
--- NOTE | 2018-03-27 05:20 | IPN ---
DATE OF VISIT: 03/26/2018 HISTORY OF PRESENT ILLNESS: Raman is seen in the progressive care unit (PCU). He is suffering for nonsustained ventricular tachycardia (V-tach); just short bursts of it last night at around 3 a.m., perhaps 6-8 beats. His echocardiogram showed no wall motion abnormalities, vegetations. His ejection fraction was 65%. No significant valvular problems. Magnesium is normal, potassium is 3.8. This is probably just manifestation of his chronic alcohol abuse. PHYSICAL EXAMINATION: VITAL SIGNS: Afebrile, vital signs stable at 137/65, heart rates are in the 80s-90s. GENERAL APPEARANCE: Lying in bed, no distress. LUNGS: Clear. ABDOMEN: Soft, nontender. EXTREMITIES: No peripheral edema. IMPRESSION: 1. Nonsustained ventricular tachycardia probably related to alcohol effects on the heart. He is currently on Coreg which should be cardio protective. I will increase the dose today to 6.25 mg twice a day. Continue on telemetry. 2. Alcohol withdrawal. This has abated. 3. Influenza. He is on Tamiflu for this for a 10 day course. 4. Hypertension. Hypertensive heart disease, he is on Apresoline, augmented dose of carvedilol and lisinopril 40 mg daily.
[2018-03-27] MEDS: SLF 3 ML SYR IV SCH ×3 (06:00→22:00)
[2018-03-27] MEDS: **hydrALAZINE** 50 MG TAB PO SCH ×3 (06:25→22:00)
[2018-03-27 07:51] VITALS: BP_SYST 129; BP_SYST 140; BP_DIAS 65; BP_DIAS 74
[2018-03-27] MEDS: MAGNESIUM OXIDE 400 MG TAB (MAG-OX) PO SCH ×2 (08:42→22:00)
[2018-03-27] MEDS: OSELTAMIVIR PHOSPHATE 75 MG CAP (TAMIFLU) PO SCH ×2 (08:42→22:00)
[2018-03-27] MEDS: PANTOPRAZOLE 40MG TAB (PROTONIX) PO SCH (08:42)
[2018-03-27] MEDS: MULTIVITAMINS/MINERALS THERAP 1 TAB PO SCH (08:43)
[2018-03-27] MEDS: FOLIC ACID 1 MG TAB PO SCH (08:43)
[2018-03-27] MEDS: LISINOPRIL 40 MG TAB PO SCH (08:43)
[2018-03-27] MEDS: ENOXAPARIN 40 MG/0.4 ML SYRINGE (J1650) SC SCH (08:44)
[2018-03-27] MEDS: TRIAMCINOLONE ACET 0.1% OINTMENT 15 GM EXT SCH (08:44)
[2018-03-27] MEDS: CARVedilol 6.25 MG TAB PO SCH ×2 (08:44→22:01)
[2018-03-27] MEDS: IPRATROPIUM 0.5MG/ALBUTEROL 2.5MG INH SOL UD 3ML (DUONEB)(J7620) NEB PRN (08:54)
--- NOTE | 2018-03-27 11:03 | IPN ---
DATE: 03/27/2018 Raman is seen in the progressive care unit (PCU). He has had no recurrence of ventricular tachycardia. He is on his 8th day of Tamiflu for his pneumonia. He has had no signs of alcohol withdrawal. I was hoping to send him home, but he feels too weak for this. The nursing staff is concerned that he needs some more therapy. PHYSICAL EXAMINATION: 129/74. Pulse 95. Respiratory rate 19. 96% oxygen saturation. General Appearance: Elderly, frail. Lungs clear. Heart: Regular rhythm. Abdomen soft. Nontender. No peripheral edema. LABS: Not planned for today. IMPRESSION: 1. Influenza. Day eight with Tamiflu. 2. Hypertension. Blood pressure is under better control. 3. Alcohol withdrawal. No recurrence of this. 4. Disposition. Physical therapy has been ordered. Will get a home safety evaluation tomorrow. He might need some short term rehabilitation.
[2018-03-27 12:00] VITALS: BP 148/71
[2018-03-27 16:09] VITALS: BP 137/37
[2018-03-27 20:00] VITALS: BP 127/77
[2018-03-28] VITALS: BP 118/63
[2018-03-28 04:00] VITALS: BP 158/75
[2018-03-28] MEDS: SLF 3 ML SYR IV SCH ×3 (05:55→20:27)
[2018-03-28] MEDS: **hydrALAZINE** 50 MG TAB PO SCH ×3 (05:55→20:26)
[2018-03-28 06:16] LABS: HEMOGLOBIN 10.6 g/dl (13.5-17.5); MEAN CORPUSCULAR HEMOGLOBIN 34.6 pg (27.0-33.0); MEAN CORPUSCULAR HGB CONC 35.3 g/dl (32.0-36.5); PLATELET COUNT, AUTOMATED 461 10^3/uL (150-450); RED BLOOD COUNT 3.06 10^6/uL (4.30-6.10)
[2018-03-28 06:35] LABS: BLOOD UREA NITROGEN 12 MG/DL (7-18); CARBON DIOXIDE LEVEL 29 MEQ/L (21-32); CHLORIDE LEVEL 99 MEQ/L (98-107); CREATININE FOR GFR 0.91 MG/DL (0.70-1.30); GLOMERULAR FILTRATION RATE > 60.0 (>49); GLUCOSE, FASTING 94 MG/DL (70-100); POTASSIUM SERUM 3.9 MEQ/L (3.5-5.1); SODIUM LEVEL 133 MEQ/L (136-145)
[2018-03-28] MEDS: TRIAMCINOLONE ACET 0.1% OINTMENT 15 GM EXT SCH (07:40)
[2018-03-28 08:00] VITALS: BP 140/69
[2018-03-28] MEDS: FOLIC ACID 1 MG TAB PO SCH (10:10)
[2018-03-28] MEDS: ENOXAPARIN 40 MG/0.4 ML SYRINGE (J1650) SC SCH (10:10)
[2018-03-28] MEDS: PANTOPRAZOLE 40MG TAB (PROTONIX) PO SCH (10:11)
[2018-03-28] MEDS: MAGNESIUM OXIDE 400 MG TAB (MAG-OX) PO SCH ×2 (10:11→20:27)
[2018-03-28] MEDS: MULTIVITAMINS/MINERALS THERAP 1 TAB PO SCH (10:11)
[2018-03-28] MEDS: LISINOPRIL 40 MG TAB PO SCH (10:11)
[2018-03-28] MEDS: OSELTAMIVIR PHOSPHATE 75 MG CAP (TAMIFLU) PO SCH ×2 (10:11→20:27)
[2018-03-28] MEDS: CARVedilol 6.25 MG TAB PO SCH ×2 (10:12→20:27)
[2018-03-28 12:00] VITALS: BP 133/63
[2018-03-28 16:00] VITALS: BP 130/68
--- NOTE | 2018-03-28 23:34 | IPNPDOC ---
Text Note Date of Service The patient was seen on 03/28/18. NOTE Subjective: Patient was seen and examined at the bedside. Patient used to have improvement of his mentation. He is oriented to person, place and time. He is unsure who the president is. He denies any chest pain, shortness of breath or palpitations. Denies nausea, vomiting, abdominal pain, constipation, diarrhea or any burning or discomfort with urination. Objective: Vitals (See below) General: Lying in bed, no acute distress, comfortable, Awake / Alert, Oriented x 3 (time = only to year) HEENT: NC, AT, moist mucus membranes, anicteric eyes. CVS: RRR, +S1S2 Lungs: Fair air entry b/l, there does not appear to be auscultated evidence of rhonchi, rales or wheezing Abdomen: Soft, nondistended, without tenderness Extremities: No evidence of LE edema, - Calf tenderness Labs and Radiology: Reviewed Assessment and plan: Patient is a 62-year-old male with a past history of HTN, Alcoholism who presented to the ER, brought in by his because of confusion. As per the , patient has been having progressive worsening mentation over 3 weeks. In the ER patient was suspected to have alcohol withdrawal. In the ED he spiked a temp of 102 and Flu swab was positive. Patient was admitted for influenza , alcohol withdrawal with acute metabolic encephalopathy. As per the daughter, patient is reported to have heavy alcohol consumption daily. Influenza on tamiflu Acute metabolic encephalopathy alcohol withdrawal, viral infection with possibly underlying dementia Patient's family has noted progressive decline of mentation Now improved. on folate and MV and thiamine Alcohol withdrawal resolved. Hypertension on lisinopril, hydralazine, coreg Gram positive bacteremia 1/ this was a contaminant Hyponatremia , hypomagnesemia improved. Rhabdomyolysis due to viral infection resolving Bilateral lower extremity eczema continue triamcinolone. GI prophylaxis c/w Protonix DVT prophylaxis c/w Lovenox Disposition pending PT clearance VS,Jeison, I+O VS, Jeison, I+O Laboratory Tests 03/28/18 05:57 Red Blood Count 3.06 L, Mean Corpuscular Volume 98.0 H, Mean Corpuscular Hemoglobin 34.6 H, Mean Corpuscular Hemoglobin Concent 35.3, Red Cell Distribution Width 12.5, Calcium Level 8.0 L Vital Signs Date Time Temp Pulse Resp B/P (MAP) Pulse Ox O2 Delivery O2 Flow Rate FiO2 03/28/18 20:27 75 03/28/18 20:26 138/86 03/28/18 16:00 99.4 18 94 I&O- Last 24 Hours up to 6 AM 03/28/18 06:00 Intake Total 860 ml Output Total 750 ml Balance 110 ml MYLES MONTENEGRO MD Mar 28, 2018 23:34
[2018-03-29 04:45] VITALS: BP 166/79
[2018-03-29] MEDS: **hydrALAZINE** 50 MG TAB PO SCH ×3 (05:04→21:10)
[2018-03-29] MEDS: SLF 3 ML SYR IV SCH ×3 (05:04→21:13)
[2018-03-29 06:11] LABS: HEMOGLOBIN 10.9 g/dl (13.5-17.5); MEAN CORPUSCULAR HEMOGLOBIN 34.6 pg (27.0-33.0); MEAN CORPUSCULAR HGB CONC 35.2 g/dl (32.0-36.5); MEAN CORPUSCULAR VOLUME 98.4 fl (80.0-96.0); PLATELET COUNT, AUTOMATED 466 10^3/uL (150-450); RED BLOOD COUNT 3.15 10^6/uL (4.30-6.10); WHITE BLOOD COUNT 6.2 10^3/uL (4.0-10.0)
[2018-03-29 06:38] LABS: BLOOD UREA NITROGEN 11 MG/DL (7-18); CALCIUM LEVEL 8.1 MG/DL (8.8-10.2); CARBON DIOXIDE LEVEL 28 MEQ/L (21-32); CHLORIDE LEVEL 100 MEQ/L (98-107); GLOMERULAR FILTRATION RATE > 60.0 (>49); GLUCOSE, FASTING 90 MG/DL (70-100); POTASSIUM SERUM 4.1 MEQ/L (3.5-5.1); SODIUM LEVEL 134 MEQ/L (136-145)
[2018-03-29] MEDS: OSELTAMIVIR PHOSPHATE 75 MG CAP (TAMIFLU) PO SCH ×2 (08:38→21:09)
[2018-03-29] MEDS: FOLIC ACID 1 MG TAB PO SCH (08:38)
[2018-03-29] MEDS: THIAMINE 100 MG TAB PO SCH (08:38)
[2018-03-29] MEDS: MAGNESIUM OXIDE 400 MG TAB (MAG-OX) PO SCH ×2 (08:38→21:09)
[2018-03-29] MEDS: CARVedilol 6.25 MG TAB PO SCH ×2 (08:38→21:09)
[2018-03-29] MEDS: LISINOPRIL 40 MG TAB PO SCH (08:39)
[2018-03-29] MEDS: MULTIVITAMINS/MINERALS THERAP 1 TAB PO SCH (08:39)
[2018-03-29] MEDS: PANTOPRAZOLE 40MG TAB (PROTONIX) PO SCH (08:39)
[2018-03-29] MEDS: ENOXAPARIN 40 MG/0.4 ML SYRINGE (J1650) SC SCH (08:39)
[2018-03-29] MEDS: TRIAMCINOLONE ACET 0.1% OINTMENT 15 GM EXT SCH (08:39)
[2018-03-29 12:00] VITALS: BP 125/72
--- NOTE | 2018-03-29 14:39 | IPNPDOC ---
Text Note Date of Service The patient was seen on 03/29/18. NOTE Subjective: Patient was seen and examined at the bedside. Patient used to have improvement of his mentation. He is oriented to person, place and time. He is unsure who the president is. He denies any chest pain, shortness of breath or palpitations. Denies nausea, vomiting, abdominal pain, constipation, diarrhea or any burning or discomfort with urination. Objective: Vitals (See below) General: Lying in bed, no acute distress, comfortable, Awake / Alert, Oriented x 3 (time = only to year) HEENT: NC, AT, moist mucus membranes, anicteric eyes. CVS: RRR, +S1S2 Lungs: Fair air entry b/l, there does not appear to be auscultated evidence of rhonchi, rales or wheezing Abdomen: Soft, nondistended, without tenderness Extremities: No evidence of LE edema, - Calf tenderness Labs and Radiology: Reviewed Assessment and plan: Patient is a 62-year-old male with a past history of HTN, Alcoholism who presented to the ER, brought in by his because of confusion. As per the , patient has been having progressive worsening mentation over 3 weeks. In the ER patient was suspected to have alcohol withdrawal. In the ED he spiked a temp of 102 and Flu swab was positive. Patient was admitted for influenza , alcohol withdrawal with acute metabolic encephalopathy. As per the daughter, patient is reported to have heavy alcohol consumption daily. Influenza on tamiflu Acute metabolic encephalopathy due to alcohol withdrawal, viral infection with possibly underlying dementia Patient's family has noted progressive decline of mentation Now improved. on folate and MV and thiamine Alcohol withdrawal resolved. Hypertension on lisinopril, hydralazine, coreg Gram positive bacteremia 1/ this was a contaminant Hyponatremia , hypomagnesemia improved. Rhabdomyolysis due to viral infection resolving Bilateral lower extremity eczema continue triamcinolone. GI prophylaxis c/w Protonix DVT prophylaxis c/w Lovenox Disposition pending PT clearance VS,Jeison, I+O VS, Jeison, I+O Laboratory Tests 03/29/18 06:01 Red Blood Count 3.15 L, Mean Corpuscular Volume 98.4 H, Mean Corpuscular Hemoglobin 34.6 H, Mean Corpuscular Hemoglobin Concent 35.2, Red Cell Distribution Width 12.7, Calcium Level 8.1 L Vital Signs Date Time Temp Pulse Resp B/P (MAP) Pulse Ox O2 Delivery O2 Flow Rate FiO2 03/29/18 13:57 136/74 03/29/18 12:00 99.4 82 18 91 I&O- Last 24 Hours up to 6 AM 03/29/18 06:00 Intake Total 840 ml Output Total 750 ml Balance 90 ml MYLES MONTENEGRO MD Mar 29, 2018 14:39
[2018-03-29 20:00] VITALS: BP 146/70
[2018-03-29 21:07] VITALS: BP 156/71
[2018-03-30 04:00] VITALS: BP 137/78
[2018-03-30 05:59] VITALS: BP 152/77
[2018-03-30] MEDS: **hydrALAZINE** 50 MG TAB PO SCH ×3 (06:00→21:35)
[2018-03-30] MEDS: SLF 3 ML SYR IV SCH ×3 (06:00→21:37)
[2018-03-30 09:00] VITALS: BP 102/56
[2018-03-30] MEDS: THIAMINE 100 MG TAB PO SCH (09:54)
[2018-03-30] MEDS: FOLIC ACID 1 MG TAB PO SCH (09:54)
[2018-03-30] MEDS: LISINOPRIL 40 MG TAB PO SCH (09:54)
[2018-03-30] MEDS: CARVedilol 6.25 MG TAB PO SCH ×2 (09:54→21:35)
[2018-03-30] MEDS: PANTOPRAZOLE 40MG TAB (PROTONIX) PO SCH (09:55)
[2018-03-30] MEDS: OSELTAMIVIR PHOSPHATE 75 MG CAP (TAMIFLU) PO SCH (09:55)
[2018-03-30] MEDS: MULTIVITAMINS/MINERALS THERAP 1 TAB PO SCH (09:55)
[2018-03-30] MEDS: MAGNESIUM OXIDE 400 MG TAB (MAG-OX) PO SCH ×2 (09:56→21:35)
[2018-03-30] MEDS: ENOXAPARIN 40 MG/0.4 ML SYRINGE (J1650) SC SCH (09:56)
[2018-03-30] MEDS: TRIAMCINOLONE ACET 0.1% OINTMENT 15 GM EXT SCH (09:56)
--- NOTE | 2018-03-30 13:12 | IPNPDOC ---
Text Note Date of Service The patient was seen on 03/30/18. NOTE Subjective: Patient was seen and examined at the bedside. has been having low grade fever from early this morning. Not very communicative this am. Patient has had improvement of his mentation. He is oriented to person, place but does not know the date or who is the president. Complains of some low back pain. He denies any chest pain, shortness of breath or palpitations. Denies nausea, vomiting, abdominal pain, constipation, diarrhea or any burning or discomfort with urination. Objective: Vitals (See below) General: Lying in bed, no acute distress, comfortable, Awake / Alert, Oriented x 2 (time = only to year) HEENT: NC, AT, moist mucus membranes, anicteric eyes. CVS: RRR, +S1S2, No rub, murmur or gallop Lungs: Fair air entry b/l, No ronchi or crackles. Abdomen: Soft, nondistended, without tenderness Extremities: No evidence of LE edema, - Calf tenderness Labs and Radiology: Reviewed Assessment and plan: Patient is a 62-year-old male with a past history of HTN, Alcoholism who presented to the ER, brought in by his because of confusion. As per the , patient has been having progressive worsening mentation over 3 weeks. In the ER patient was suspected to have alcohol withdrawal. In the ED he spiked a temp of 102 and Flu swab was positive. Patient was admitted for influenza , alcohol withdrawal with acute metabolic encephalopathy. As per the daughter, patient is reported to have heavy alcohol consumption daily. Influenza on tamiflu Acute metabolic encephalopathy due to alcohol withdrawal, viral infection with possibly underlying dementia Patient's family has noted progressive decline of mentation Now improved. on folate and MV and thiamine Alcohol withdrawal resolved. Hypertension on lisinopril, hydralazine, coreg Gram positive bacteremia 02/17 this was a contaminant Hyponatremia , hypomagnesemia improved. Rhabdomyolysis due to viral infection resolving Bilateral lower extremity eczema continue triamcinolone. GI prophylaxis c/w Protonix DVT prophylaxis c/w Lovenox Disposition pending PT clearance VS,Fishbone, I+O VS, Fishbone, I+O Vital Signs Date Time Temp Pulse Resp B/P (MAP) Pulse Ox O2 Delivery O2 Flow Rate FiO2 03/30/18 09:54 105 102/56 03/30/18 09:00 99.6 18 91 I&O- Last 24 Hours up to 6 AM 03/30/18 06:00 Intake Total 600 ml Output Total 350 ml Balance 250 ml MYLES MONTENEGRO MD Mar 30, 2018 13:11
[2018-03-30 16:00] VITALS: BP 141/67
[2018-03-30] MEDS: ACETAMINOPHEN 500 MG TAB PO PRN (17:27)
[2018-03-30 21:22] VITALS: BP 108/58
[2018-03-30 23:59] VITALS: BP 119/57
[2018-03-31 04:14] LABS: BASO # 0.1 10^3/uL (0.0-0.2); BASO % 0.9 % (0.0-1.0); EOS # 0.1 10^3/uL (0.0-0.50); EOS % 0.8 % (0.0-3.0); HEMATOCRIT 29.1 % (42.0-52.0); HEMOGLOBIN 10.1 g/dl (13.5-17.5); LYMPH # 1.5 10^3/uL (1.5-4.5); LYMPH % 15.3 % (24.0-44.0); MEAN CORPUSCULAR HEMOGLOBIN 34.8 pg (27.0-33.0); MEAN CORPUSCULAR HGB CONC 34.7 g/dl (32.0-36.5); MEAN CORPUSCULAR VOLUME 100.3 fl (80.0-96.0); MONO # 1.4 10^3/uL (0.0-0.8); MONO % 14.6 % (0.0-5.0); NEUTROPHILS # 6.5 10^3/uL (1.8-7.7); NEUTROPHILS % 67.9 % (36.0-66.0); PLATELET COUNT, AUTOMATED 500 10^3/uL (150-450); WHITE BLOOD COUNT 9.6 10^3/uL (4.0-10.0)
[2018-03-31 04:32] LABS: BLOOD UREA NITROGEN 15 MG/DL (7-18); CALCIUM LEVEL 8.1 MG/DL (8.8-10.2); CARBON DIOXIDE LEVEL 27 MEQ/L (21-32); CHLORIDE LEVEL 97 MEQ/L (98-107); CREATININE FOR GFR 0.91 MG/DL (0.70-1.30); GLOMERULAR FILTRATION RATE > 60.0 (>49); GLUCOSE, FASTING 94 MG/DL (70-100); POTASSIUM SERUM 4.2 MEQ/L (3.5-5.1); SODIUM LEVEL 131 MEQ/L (136-145)
[2018-03-31 05:10] VITALS: BP 124/66
[2018-03-31] MEDS: SLF 3 ML SYR IV SCH ×3 (05:22→21:12)
[2018-03-31] MEDS: **hydrALAZINE** 50 MG TAB PO SCH ×3 (05:22→21:12)
[2018-03-31 08:00] VITALS: BP 127/68
[2018-03-31] MEDS: PANTOPRAZOLE 40MG TAB (PROTONIX) PO SCH (09:24)
[2018-03-31] MEDS: MULTIVITAMINS/MINERALS THERAP 1 TAB PO SCH (09:24)
[2018-03-31] MEDS: LISINOPRIL 40 MG TAB PO SCH (09:24)
[2018-03-31] MEDS: MAGNESIUM OXIDE 400 MG TAB (MAG-OX) PO SCH ×2 (09:24→21:11)
[2018-03-31] MEDS: THIAMINE 100 MG TAB PO SCH (09:24)
[2018-03-31] MEDS: FOLIC ACID 1 MG TAB PO SCH (09:25)
[2018-03-31] MEDS: CARVedilol 6.25 MG TAB PO SCH ×2 (09:25→21:12)
[2018-03-31] MEDS: ENOXAPARIN 40 MG/0.4 ML SYRINGE (J1650) SC SCH (09:26)
[2018-03-31] MEDS: TRIAMCINOLONE ACET 0.1% OINTMENT 15 GM EXT SCH (09:26)
--- NOTE | 2018-03-31 15:14 | IPNPDOC ---
Text Note Date of Service The patient was seen on 03/31/18. NOTE Subjective: Patient was seen and examined at the bedside. Had a spike of temp 101.3 last evening also and also the day prior. Patient has had improvement of his mentation. He is oriented to person, place and time also. Complains of some low back pain. He denies any chest pain. Does complain of SOB on mild exertion and noted to have pursed lip breathing. No abdominal pain nausea or vomiting or diarrhea. Objective: Vitals (See below) General: Lying in bed, no acute distress, comfortable, Awake / Alert, Oriented x 3 with pursed lip breathing. HEENT: NC, AT, moist mucus membranes, anicteric eyes. CVS: RRR, +S1S2, No rub, murmur or gallop Lungs: Fair air entry b/l, No ronchi or crackles. Abdomen: Soft, nondistended, without tenderness Extremities: No evidence of LE edema, - Calf tenderness Labs and Radiology: Reviewed Assessment and plan: Patient is a 62-year-old male with a past history of HTN, Alcoholism who presented to the ER, brought in by his because of confusion. As per the , patient has been having progressive worsening mentation over 3 weeks. In the ER patient was suspected to have alcohol withdrawal. In the ED he spiked a temp of 102 and Flu swab was positive. Patient was admitted for influenza , alcohol withdrawal with acute metabolic encephalopathy. As per the daughter, patient is reported to have heavy alcohol consumption daily. Influenza treated. finished treatment with tamiflu . 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 CXR with hyperinflation along with his long history of smoking and noted pursed lip breathing most suggestive of emphysema. will need PFTs on discharge will need referral to pulmonary Acute metabolic encephalopathy due to alcohol withdrawal, viral infection with possibly underlying dementia Patient's family has noted progressive decline of mentation Now improved. on folate and MV and thiamine Alcohol withdrawal resolved. Hypertension on lisinopril, hydralazine, coreg Gram positive bacteremia 02/17 this was a contaminant Hyponatremia , hypomagnesemia improved. Rhabdomyolysis due to viral infection resolving Bilateral lower extremity eczema continue triamcinolone. GI prophylaxis c/w Protonix DVT prophylaxis c/w Lovenox Disposition pending PT clearance VS,Fishbone, I+O VS, Fishbone, I+O Laboratory Tests 03/31/18 03:23 Red Blood Count 2.90 L, Mean Corpuscular Volume 100.3 H, Mean Corpuscular Hemoglobin 34.8 H, Mean Corpuscular Hemoglobin Concent 34.7, Red Cell Distribution Width 12.5, Neutrophils (%) (Auto) 67.9 H, Lymphocytes (%) (Auto) 15.3 L, Monocytes (%) (Auto) 14.6 H, Eosinophils (%) (Auto) 0.8, Basophils (%) (Auto) 0.9, Neutrophils # (Auto) 6.5, Lymphocytes # (Auto) 1.5, Monocytes # (Auto) 1.4 H, Eosinophils # (Auto) 0.1, Basophils # (Auto) 0.1, Calcium Level 8.1 L Vital Signs Date Time Temp Pulse Resp B/P (MAP) Pulse Ox O2 Delivery O2 Flow Rate FiO2 03/31/18 14:53 128/62 03/31/18 09:25 92 03/31/18 08:00 99.0 20 91 I&O- Last 24 Hours up to 6 AM 03/31/18 06:00 Intake Total 840 ml Output Total 600 ml Balance 240 ml MYLES MONTENEGRO MD Mar 31, 2018 15:14
[2018-03-31 16:00] VITALS: BP 136/71
[2018-03-31 20:00] VITALS: BP 133/78
[2018-03-31] MEDS: ACETAMINOPHEN 500 MG TAB PO PRN (22:28)
[2018-04-01] VITALS (7 sets, daily range): BP systolic 112–131; BP diastolic 59–71
[2018-04-01 05:30] LABS: BASO # 0.1 10^3/uL (0.0-0.2); BASO % 0.8 % (0.0-1.0); EOS # 0.1 10^3/uL (0.0-0.50); EOS % 0.7 % (0.0-3.0); HEMATOCRIT 29.2 % (42.0-52.0); HEMOGLOBIN 10.1 g/dl (13.5-17.5); LYMPH # 1.3 10^3/uL (1.5-4.5); LYMPH % 13.9 % (24.0-44.0); MEAN CORPUSCULAR HEMOGLOBIN 34.7 pg (27.0-33.0); MEAN CORPUSCULAR HGB CONC 34.6 g/dl (32.0-36.5); MEAN CORPUSCULAR VOLUME 100.3 fl (80.0-96.0); MONO # 1.5 10^3/uL (0.0-0.8); MONO % 16.1 % (0.0-5.0); NEUTROPHILS # 6.5 10^3/uL (1.8-7.7); NEUTROPHILS % 68.1 % (36.0-66.0); PLATELET COUNT, AUTOMATED 487 10^3/uL (150-450); RED BLOOD COUNT 2.91 10^6/uL (4.30-6.10); WHITE BLOOD COUNT 9.5 10^3/uL (4.0-10.0)
[2018-04-01 05:49] LABS: BLOOD UREA NITROGEN 17 MG/DL (7-18); CALCIUM LEVEL 8.2 MG/DL (8.8-10.2); CARBON DIOXIDE LEVEL 26 MEQ/L (21-32); CHLORIDE LEVEL 97 MEQ/L (98-107); CREATININE FOR GFR 1.02 MG/DL (0.70-1.30); GLOMERULAR FILTRATION RATE > 60.0 (>49); GLUCOSE, FASTING 99 MG/DL (70-100); POTASSIUM SERUM 4.2 MEQ/L (3.5-5.1); SODIUM LEVEL 130 MEQ/L (136-145)
[2018-04-01] MEDS: **hydrALAZINE** 50 MG TAB PO SCH ×2 (06:34→20:16)
[2018-04-01] MEDS: SLF 3 ML SYR IV SCH ×3 (06:36→22:00)
[2018-04-01] MEDS: MAGNESIUM OXIDE 400 MG TAB (MAG-OX) PO SCH ×2 (10:50→20:16)
[2018-04-01] MEDS: ENOXAPARIN 40 MG/0.4 ML SYRINGE (J1650) SC SCH (10:50)
[2018-04-01] MEDS: PANTOPRAZOLE 40MG TAB (PROTONIX) PO SCH (10:51)
[2018-04-01] MEDS: LISINOPRIL 40 MG TAB PO SCH (10:51)
[2018-04-01] MEDS: CARVedilol 6.25 MG TAB PO SCH ×2 (10:51→20:17)
[2018-04-01] MEDS: FOLIC ACID 1 MG TAB PO SCH (10:51)
[2018-04-01] MEDS: THIAMINE 100 MG TAB PO SCH (10:52)
[2018-04-01] MEDS: MULTIVITAMINS/MINERALS THERAP 1 TAB PO SCH (10:52)
[2018-04-01] MEDS: TRIAMCINOLONE ACET 0.1% OINTMENT 15 GM EXT SCH (10:52)
--- NOTE | 2018-04-01 13:18 | IPNPDOC ---
Text Note Date of Service The patient was seen on 04/01/18. NOTE Subjective: Patient was seen and examined at the bedside. Had a spike of temp 101.2 last evening also and also 2 consecutive days prior. Patient has had improvement of his mentation. He is oriented to person, place and time also. Complains of some low back pain. He denies any chest pain. Does complain of SOB on mild exertion and noted to have pursed lip breathing. No abdominal pain nausea or vomiting or diarrhea. Objective: Vitals (See below) General: Lying in bed, no acute distress, comfortable, Awake / Alert, Oriented x 3 with pursed lip breathing. HEENT: NC, AT, moist mucus membranes, anicteric eyes. CVS: RRR, +S1S2, No rub, murmur or gallop Lungs: Fair air entry b/l, No ronchi or crackles. Abdomen: Soft, nondistended, without tenderness Extremities: No evidence of LE edema, - Calf tenderness Labs and Radiology: Reviewed Assessment and plan: Patient is a 62-year-old male with a past history of HTN, Alcoholism who presented to the ER, brought in by his because of confusion. As per the , patient has been having progressive worsening mentation over 3 weeks. In the ER patient was suspected to have alcohol wi thdrawal. In the ED he spiked a temp of 102 and Flu swab was positive. Patient was admitted for influenza , alcohol withdrawal with acute metabolic encephalopathy. As per the daughter, patient is reported to have heavy alcohol consumption daily. Influenza treated. finished treatment with tamiflu . off isolation Persistent spikes of temp in the evening ? related to hydralazine. Dose adjusted. if continues to have fever will chest UA and CXR again. 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 CXR with hyperinflation along with his long history of smoking and noted pursed lip breathing most suggestive of emphysema. will start on spiriva. will need PFTs on discharge will need referral to pulmonary Acute metabolic encephalopathy due to alcohol withdrawal, viral infection with possibly underlying dementia Patient's family has noted progressive decline of mentation Now improved. on folate and MV and thiamine Alcohol withdrawal resolved. Hypertension on lisinopril, hydralazine, coreg Gram positive bacteremia 1/ this was a contaminant Hyponatremia , hypomagnesemia improved. Rhabdomyolysis due to viral infection resolving Bilateral lower extremity eczema continue triamcinolone. GI prophylaxis c/w Protonix DVT prophylaxis c/w Lovenox Disposition pending PT clearance VS,Fishbone, I+O VS, Fishbone, I+O Laboratory Tests 04/01/18 04:27 Red Blood Count 2.91 L, Mean Corpuscular Volume 100.3 H, Mean Corpuscular Hemoglobin 34.7 H, Mean Corpuscular Hemoglobin Concent 34.6, Red Cell Distribution Width 12.5, Neutrophils (%) (Auto) 68.1 H, Lymphocytes (%) (Auto) 13.9 L, Monocytes (%) (Auto) 16.1 H, Eosinophils (%) (Auto) 0.7, Basophils (%) (Auto) 0.8, Neutrophils # (Auto) 6.5, Lymphocytes # (Auto) 1.3 L, Monocytes # (Auto) 1.5 H, Eosinophils # (Auto) 0.1, Basophils # (Auto) 0.1, Calcium Level 8.2 L Vital Signs Date Time Temp Pulse Resp B/P (MAP) Pulse Ox O2 Delivery O2 Flow Rate FiO2 04/01/18 10:51 78 118/68 04/01/18 08:00 98.6 18 92 I&O- Last 24 Hours up to 6 AM 04/01/18 06:00 Intake Total 300 ml Output Total 900 ml Balance -600 ml MYLES MONTENEGRO MD Apr 01, 2018 13:18
[2018-04-01] MEDS: TIOTROPIUM INHALER/CAPSULE (SPIRIVA) INH SCH (15:10)
[2018-04-01] MEDS: ACETAMINOPHEN 500 MG TAB PO PRN (18:44)
[2018-04-02 04:17] VITALS: BP 119/62
[2018-04-02] MEDS: SLF 3 ML SYR IV SCH ×4 (05:26→21:50)
[2018-04-02 07:45] LABS: BASO # 0.1 10^3/uL (0.0-0.2); EOS # 0.2 10^3/uL (0.0-0.50); EOS % 3.2 % (0.0-3.0); HEMATOCRIT 27.5 % (42.0-52.0); HEMOGLOBIN 9.7 g/dl (13.5-17.5); LYMPH # 1.6 10^3/uL (1.5-4.5); LYMPH % 22.9 % (24.0-44.0); MEAN CORPUSCULAR HGB CONC 35.3 g/dl (32.0-36.5); MEAN CORPUSCULAR VOLUME 99.3 fl (80.0-96.0); MONO # 1.2 10^3/uL (0.0-0.8); MONO % 17.4 % (0.0-5.0); NEUTROPHILS # 3.8 10^3/uL (1.8-7.7); NEUTROPHILS % 55.2 % (36.0-66.0); PLATELET COUNT, AUTOMATED 484 10^3/uL (150-450); RED BLOOD COUNT 2.77 10^6/uL (4.30-6.10); WHITE BLOOD COUNT 6.8 10^3/uL (4.0-10.0)
[2018-04-02 08:00] VITALS: BP 127/62
[2018-04-02] MEDS: TIOTROPIUM INHALER/CAPSULE (SPIRIVA) INH SCH (08:00)
[2018-04-02 08:15] LABS: BLOOD UREA NITROGEN 19 MG/DL (7-18); CARBON DIOXIDE LEVEL 28 MEQ/L (21-32); CHLORIDE LEVEL 97 MEQ/L (98-107); CREATININE FOR GFR 0.96 MG/DL (0.70-1.30); GLOMERULAR FILTRATION RATE > 60.0 (>49); GLUCOSE, FASTING 92 MG/DL (70-100); POTASSIUM SERUM 4.5 MEQ/L (3.5-5.1); SODIUM LEVEL 131 MEQ/L (136-145)
[2018-04-02] MEDS: ENOXAPARIN 40 MG/0.4 ML SYRINGE (J1650) SC SCH (08:23)
[2018-04-02] MEDS: CARVedilol 6.25 MG TAB PO SCH (08:24)
[2018-04-02] MEDS: MAGNESIUM OXIDE 400 MG TAB (MAG-OX) PO SCH ×2 (08:24→20:40)
[2018-04-02] MEDS: MULTIVITAMINS/MINERALS THERAP 1 TAB PO SCH (08:24)
[2018-04-02] MEDS: PANTOPRAZOLE 40MG TAB (PROTONIX) PO SCH (08:25)
[2018-04-02] MEDS: LISINOPRIL 40 MG TAB PO SCH (08:25)
[2018-04-02] MEDS: FOLIC ACID 1 MG TAB PO SCH (08:25)
[2018-04-02] MEDS: **hydrALAZINE** 50 MG TAB PO SCH (08:25)
[2018-04-02] MEDS: THIAMINE 100 MG TAB PO SCH (08:25)
[2018-04-02] MEDS: TRIAMCINOLONE ACET 0.1% OINTMENT 15 GM EXT SCH (08:26)
[2018-04-02] MEDS ORDERED: ENTER DRUG NAME HERE (PATIENT'S OWN MED) PO SCH (09:00)
[2018-04-02 14:00] VITALS: BP 118/64
[2018-04-02] MEDS: ACETAMINOPHEN 500 MG TAB PO PRN (14:32)
--- NOTE | 2018-04-02 15:26 | IPNPDOC ---
Text Note Date of Service The patient was seen on 04/02/18. NOTE Subjective: Patient was seen and examined at the bedside. Had a spike of temp 101.2 last evening also and also 2 consecutive days prior. Patient has had improvement of his mentation. He is oriented to person, place and time also. Complains of some low back pain. He denies any chest pain. Does complain of SOB on mild exertion and noted to have pursed lip breathing. No abdominal pain nausea or vomiting or diarrhea. Objective: Vitals (See below) General: Lying in bed, no acute distress, comfortable, Awake / Alert, Oriented x 3 with pursed lip breathing. HEENT: NC, AT, moist mucus membranes, anicteric eyes. CVS: RRR, +S1S2, No rub, murmur or gallop Lungs: Fair air entry b/l, No ronchi or crackles. Abdomen: Soft, nondistended, without tenderness Extremities: No evidence of LE edema, - Calf tenderness Labs and Radiology: Reviewed Assessment and plan: Patient is a 62-year-old male with a past history of HTN, Alcoholism who presented to the ER, brought in by his because of confusion. As per the , patient has been having progressive worsening mentation over 3 weeks. In the ER patient was suspected to have alcohol wi thdrawal. In the ED he spiked a temp of 102 and Flu swab was positive. Patient was admitted for influenza , alcohol withdrawal with acute metabolic encephalopathy. As per the daughter, patient is reported to have heavy alcohol consumption daily. Influenza treated. finished treatment with tamiflu . off isolation Persistent spikes of temp in the evenin for 3 days ? related to hydralazine. will stop hydralazine. as per infectous control may be still shedding so was put back on droplet precau tions. if continues to have fever will chest UA and CXR again. 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 CXR with hyperinflation along with his long history of smoking and noted pursed lip breathing most suggestive of emphysema. will start on spiriva. will need PFTs on discharge will need referral to pulmonary Acute metabolic encephalopathy due to alcohol withdrawal, viral infection with possibly underlying dementia Patient's family has noted progressive decline of mentation Now improved. on folate and MV and thiamine Alcohol withdrawal resolved. Hypertension on lisinopril, coreg. will dc hydralazine as Bp too well controlled. Gram positive bacteremia 02/17 this was a contaminant Hyponatremia , hypomagnesemia improved. Rhabdomyolysis due to viral infection resolving Bilateral lower extremity eczema continue triamcinolone. GI prophylaxis c/w Protonix DVT prophylaxis c/w Lovenox Disposition pending PT clearance VS,Fishbone, I+O VS, Fishbone, I+O Laboratory Tests 04/02/18 07:19 Red Blood Count 2.77 L, Mean Corpuscular Volume 99.3 H, Mean Corpuscular Hemoglobin 35.0 H, Mean Corpuscular Hemoglobin Concent 35.3, Red Cell Distribution Width 12.3, Neutrophils (%) (Auto) 55.2, Lymphocytes (%) (Auto) 22.9 L, Monocytes (%) (Auto) 17.4 H, Eosinophils (%) (Auto) 3.2 H, Basophils (%) (Auto) 1.0, Neutrophils # (Auto) 3.8, Lymphocytes # (Auto) 1.6, Monocytes # (Auto) 1.2 H, Eosinophils # (Auto) 0.2, Basophils # (Auto) 0.1, Calcium Level 8.0 L Vital Signs Date Time Temp Pulse Resp B/P (MAP) Pulse Ox O2 Delivery O2 Flow Rate FiO2 04/02/18 14:00 99.2 77 16 118/64 (82) 95 I&O- Last 24 Hours up to 6 AM 04/02/18 06:00 Intake Total 940 ml Output Total 225 ml Balance 715 ml MYLES MONTENEGRO MD Apr 02, 2018 15:26
[2018-04-02 20:00] VITALS: BP 110/59
[2018-04-02] MEDS: CARVedilol 12.5 MG TAB PO SCH (20:41)
[2018-04-03 04:00] VITALS: BP 131/75
[2018-04-03] MEDS: SLF 3 ML SYR IV SCH ×4 (04:08→20:23)
[2018-04-03 07:05] LABS: BASO # 0.1 10^3/uL (0.0-0.2); BASO % 1.1 % (0.0-1.0); EOS # 0.3 10^3/uL (0.0-0.50); EOS % 3.9 % (0.0-3.0); HEMOGLOBIN 10.2 g/dl (13.5-17.5); LYMPH # 1.8 10^3/uL (1.5-4.5); LYMPH % 27.8 % (24.0-44.0); MEAN CORPUSCULAR HEMOGLOBIN 35.1 pg (27.0-33.0); MEAN CORPUSCULAR HGB CONC 35.2 g/dl (32.0-36.5); MEAN CORPUSCULAR VOLUME 99.7 fl (80.0-96.0); MONO # 1.1 10^3/uL (0.0-0.8); MONO % 16.2 % (0.0-5.0); NEUTROPHILS # 3.3 10^3/uL (1.8-7.7); NEUTROPHILS % 50.7 % (36.0-66.0); PLATELET COUNT, AUTOMATED 509 10^3/uL (150-450); RED BLOOD COUNT 2.91 10^6/uL (4.30-6.10); WHITE BLOOD COUNT 6.5 10^3/uL (4.0-10.0)
[2018-04-03 07:28] LABS: BLOOD UREA NITROGEN 19 MG/DL (7-18); CARBON DIOXIDE LEVEL 25 MEQ/L (21-32); CHLORIDE LEVEL 101 MEQ/L (98-107); CREATININE FOR GFR 0.86 MG/DL (0.70-1.30); GLOMERULAR FILTRATION RATE > 60.0 (>49); GLUCOSE, FASTING 89 MG/DL (70-100); POTASSIUM SERUM 4.3 MEQ/L (3.5-5.1); SODIUM LEVEL 133 MEQ/L (136-145)
[2018-04-03] MEDS: TIOTROPIUM INHALER/CAPSULE (SPIRIVA) INH SCH (08:00)
[2018-04-03] MEDS: THIAMINE 100 MG TAB PO SCH (08:40)
[2018-04-03] MEDS: LISINOPRIL 40 MG TAB PO SCH (08:40)
[2018-04-03] MEDS: FOLIC ACID 1 MG TAB PO SCH (08:40)
[2018-04-03] MEDS: PANTOPRAZOLE 40MG TAB (PROTONIX) PO SCH (08:40)
[2018-04-03] MEDS: MULTIVITAMINS/MINERALS THERAP 1 TAB PO SCH (08:40)
[2018-04-03] MEDS: MAGNESIUM OXIDE 400 MG TAB (MAG-OX) PO SCH ×2 (08:41→20:09)
[2018-04-03] MEDS: CARVedilol 12.5 MG TAB PO SCH ×2 (08:41→20:10)
[2018-04-03] MEDS: TRIAMCINOLONE ACET 0.1% OINTMENT 15 GM EXT SCH (08:41)
[2018-04-03] MEDS: ENOXAPARIN 40 MG/0.4 ML SYRINGE (J1650) SC SCH (08:42)
[2018-04-03 14:00] VITALS: BP 135/69
[2018-04-03 20:00] VITALS: BP 159/74
[2018-04-04] MEDS: SLF 3 ML SYR IV SCH (06:00)
[2018-04-04] MEDS: TIOTROPIUM INHALER/CAPSULE (SPIRIVA) INH SCH (07:25)
[2018-04-04] MEDS: CARVedilol 12.5 MG TAB PO SCH ×2 (08:50→20:16)
[2018-04-04] MEDS: MULTIVITAMINS/MINERALS THERAP 1 TAB PO SCH (08:50)
[2018-04-04] MEDS: THIAMINE 100 MG TAB PO SCH (08:50)
[2018-04-04] MEDS: FOLIC ACID 1 MG TAB PO SCH (08:51)
[2018-04-04] MEDS: MAGNESIUM OXIDE 400 MG TAB (MAG-OX) PO SCH (08:51)
[2018-04-04] MEDS: LISINOPRIL 40 MG TAB PO SCH (08:51)
[2018-04-04] MEDS: PANTOPRAZOLE 40MG TAB (PROTONIX) PO SCH (08:51)
[2018-04-04] MEDS: TRIAMCINOLONE ACET 0.1% OINTMENT 15 GM EXT SCH (08:52)
[2018-04-04] MEDS: ENOXAPARIN 40 MG/0.4 ML SYRINGE (J1650) SC SCH (08:52)
[2018-04-04] MEDS ORDERED: VITMTA PO (09:38)
[2018-04-04] MEDS ORDERED: FOLI1TAB11 PO (09:38)
[2018-04-04] MEDS ORDERED: THIA100TA PO (09:38)
[2018-04-04] MEDS ORDERED: CARV12.5 PO (09:38)
--- NOTE | 2018-04-04 09:45 | IPNPDOC ---
Date Seen The patient was seen on 04/04/18. Progress Note Subjective: dc plans for .script for home care referral and rolling walker done. no other issues per RN. this morning, pt says he has been having loose stools 1-2 daily, but no abd pain, fever, chills, decreased oral intake, nausea or vomiting. "Just not used to it." "my daughter says there will be people watching me at home. " Objective: Vitals (See below) General: Lying in bed, no acute distress, comfortable, Awake / Alert, Oriented x 3 with pursed lip breathing. HEENT: NC, AT, moist mucus membranes, anicteric eyes. CVS: RRR, +S1S2, No rub, murmur or gallop Lungs: Fair air entry b/l, No ronchi or crackles. Abdomen: Soft, nondistended, without tenderness Extremities: No evidence of LE edema, - Calf tenderness Labs and Radiology: Reviewed Assessment and plan: Patient is a 62-year-old male with a past history of HTN, Alcoholism who presented to the ER, brought in by his because of confusion. As per the , patient has been having progressive worsening mentation over 3 weeks. In the ER patient was suspected to have alcohol withdrawal. In the ED he spiked a temp of 102 and Flu swab was positive. Jody childress was admitted for influenza , alcohol withdrawal with acute metabolic encephalopathy. As per the daughter, patient is reported to have heavy alcohol consumption daily. Influenza treated. finished treatment with tamiflu . off isolation Persistent spikes of temp in the evenin for 3 days ? related to hydralazine. will stop hydralazine. as per infectous control may be still shedding so was put back on droplet precautions. if continues to have fever will chest UA and CXR again. 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 CXR with hyperinflation along with his long history of smoking and noted pursed lip breathing most suggestive of emphysema. will start on spiriva. will need PFTs on discharge will need referral to pulmonary Acute metabolic encephalopathy due to alcohol withdrawal, viral infection with possibly underlying dementia Patient's family has noted progressive decline of mentation Now improved. on folate and MV and thiamine Alcohol withdrawal resolved. Hypertension on lisinopril, coreg. will dc hydralazine as Bp too well controlled. Gram positive bacteremia 02/17 this was a contaminant Hyponatremia , hypomagnesemia improved. Rhabdomyolysis due to viral infection resolving Bilateral lower extremity eczema continue triamcinolone. Loose Stools if >5 daily and dehydration,check GI panel hold bowel regimen. GI prophylaxis c/w Protonix DVT prophylaxis c/w Lovenox Disposition pending PT clearance VS, I&O, 24H, Fishbone Vital Signs/I&O Vital Signs Date Time Temp Pulse Resp B/P (MAP) Pulse Ox O2 Delivery O2 Flow Rate FiO2 04/04/18 08:50 89 159/74 04/03/18 20:00 98.6 18 95 I&O- Last 24 Hours up to 6 AM 04/04/18 06:00 Intake Total 690 ml Output Total 900 ml Balance -210 ml MARIANN PINTO MD Apr 04, 2018 09:35
[2018-04-04 14:01] VITALS: BP 127/63
[2018-04-04 20:00] VITALS: BP 137/70
[2018-04-04 21:00] VITALS: BP 137/70
[2018-04-04 21:35] VITALS: BP 109/59
[2018-04-05] MEDS: TIOTROPIUM INHALER/CAPSULE (SPIRIVA) INH SCH (07:50)
[2018-04-05 09:20] VITALS: BP 113/59
[2018-04-05] MEDS: ENOXAPARIN 40 MG/0.4 ML SYRINGE (J1650) SC SCH (09:22)
[2018-04-05] MEDS: PANTOPRAZOLE 40MG TAB (PROTONIX) PO SCH (09:22)
[2018-04-05] MEDS: MULTIVITAMINS/MINERALS THERAP 1 TAB PO SCH (09:23)
[2018-04-05] MEDS: CARVedilol 12.5 MG TAB PO SCH ×2 (09:23→21:09)
[2018-04-05] MEDS: THIAMINE 100 MG TAB PO SCH (09:23)
[2018-04-05] MEDS: LISINOPRIL 40 MG TAB PO SCH (09:23)
[2018-04-05] MEDS: TRIAMCINOLONE ACET 0.1% OINTMENT 15 GM EXT SCH (09:23)
[2018-04-05] MEDS: FOLIC ACID 1 MG TAB PO SCH (09:23)
[2018-04-05 20:00] VITALS: BP 118/61
[2018-04-06 05:00] VITALS: BP 129/76
[2018-04-06] MEDS: ENOXAPARIN 40 MG/0.4 ML SYRINGE (J1650) SC SCH (09:00)
[2018-04-06] MEDS: TIOTROPIUM INHALER/CAPSULE (SPIRIVA) INH SCH (09:02)
[2018-04-06] MEDS: MULTIVITAMINS/MINERALS THERAP 1 TAB PO SCH (09:06)
[2018-04-06 09:07] VITALS: BP 126/70
[2018-04-06] MEDS: FOLIC ACID 1 MG TAB PO SCH (09:07)
[2018-04-06] MEDS: CARVedilol 12.5 MG TAB PO SCH (09:07)
[2018-04-06] MEDS: THIAMINE 100 MG TAB PO SCH (09:07)
[2018-04-06] MEDS: PANTOPRAZOLE 40MG TAB (PROTONIX) PO SCH (09:08)
[2018-04-06] MEDS: LISINOPRIL 40 MG TAB PO SCH (09:08)
[2018-04-06] MEDS: TRIAMCINOLONE ACET 0.1% OINTMENT 15 GM EXT SCH (09:09)
--- NOTE | 2018-04-06 17:05 | DS.PDOC ---
Discharge Summary General Date of Admission Mar 18, 2018 at 18:34 Date of Discharge 04/06/18 Discharge Summary INFECTIOUS DISEASE: DR. LYNN DISCHARGE DIAGNOSES: Influenza Alcohol Withdrawal Alcohol Abuse Abnormal MRI Brain with dilated Ventricles & basal ganglia metallic deposits Gait Abnormality rule out Parkinson's vs Normal Pressure Hydrocephalus Acute Metabolic Encephalopathy due to influenza Calcific Pleural Plaques Gallbladder polyps Rhabdomyolysis Hypertension Hypomagnesemia Hyponatremia Contaminated Blood Culture DISCHARGE MEDICATIONS: Please see below DISCHARGE INSTRUCTIONS: 1) Abnormal Gait / Abnormal MRI findings: DDX include parkinson's vs normal pressure hydrocephalus. Primary care physician to refer to Neurologist for further evaluation within 1-2 wks. 2)Gallbladder adenomyomatosis / gallbladder polyps: If persistent abdominal pain, PCP to refer to [facility] in 1-2 wks for further workup. 3)Calcific Plaques: Primary Care Physican to refer to [employer] [employer] for pulmonary function testing in 1-2 wks. HISTORY OF PRESENT ILLNESS: 62-year-old male with a past medical history of hypertension, prior alcoholism, presents to the emergency room after his ex- saw him having difficulty getting out of bed and that he appeared in withdrawal, so the patient was brought to the emergency room for evaluation. In the emergency room, the patient was in withdrawal and was given Ativan and IV fluids. The patient subsequently was noted that one vital sign showed that he had a spike in temperature of 102 rectal. Chest x-ray was negative. UA was negative; however, the influenza swab was positive and was started on Tamiflu. At this time, the patient is extremely sedated from the Ativan and all the history I got was from the daughter. The daughter states that apparently the patient drinks very heavily every single day and only drinks beer. This state of affairs has been going on for quite some time now. He will be admitted for further management. HOSPITAL COURSE: Influenza treated. finished treatment with tamiflu . off isolation Persistent spikes of temp in the evening for 3 days ? related to hydralazine. stopped hydralazine. as per infectious control may be still shedding so was put back on droplet precautions. repeat CXR showed no new infiltrate but persistent heavy calcific pleural plaques that would require pulmonary referral as outpt. 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 CXR with hyperinflation along with his long history of smoking and noted pursed lip breathing most suggestive of emphysema. started on spiriva. will need PFTs as outpt will need referral to pulmonary as outpt Acute metabolic encephalopathy due to alcohol withdrawal, influenza with Abnormal MRI Brain showing dilated ventricles and metallic deposits in the basal ganglia on folate and MV and thiamine. For complete evaluation, primary care physician to refer to neurologist for full neuropsychiatric evaluation to rule out Parkinson's disease, and referral to neurosurgery if normal pressure hydrocephalus is suspected. Alcohol withdrawal resolved. Hypertension on lisinopril, coreg. will dc hydralazine as Bp too well controlled. Gram positive bacteremia 02/17 this was a contaminant Echo was negative for vegetations Grade 1 Diastolic Dysfunction, euvolemia Hyponatremia , hypomagnesemia improved. Rhabdomyolysis due to viral infection resolving Bilateral lower extremity eczema continue triamcinolone. GI prophylaxis c/w Protonix DVT prophylaxis c/w Lovenox DISCHARGE MEDICATIONS: Please see below. ALLERGIES: Please see below. PHYSICAL EXAMINATION ON DISCHARGE: VITAL SIGNS: Please see below. HEENT: NC, AT, moist mucus membranes, anicteric eyes. CVS: RRR, +S1S2, No rub, murmur or gallop Lungs: Fair air entry b/l, No ronchi or crackles. Abdomen: Soft, nondistended, without tenderness Extremities: No evidence of LE edema, - Calf tenderness LABORATORY DATA: Please see below. IMAGING STUDIES: MR Head Without Contrast EXAM DATE/TIME: 03/19/2018 3:04 PM CLINICAL HISTORY: 62 years old, male; Signs and symptoms; Other: Confusion TECHNIQUE: MR of the head without contrast. COMPARISON: CT Head without contrast 03/19/2018 11:16 AM FINDINGS: Brain: There is no evidence of acute stroke. There is low signal intensity in the basal ganglia region bilaterally especially on the gradient sequences. Metallic deposition in this area can be seen Parkinson's disease. There is no evidence of mass effect. There is moderate enlargement of the ventricles and cerebral sulci which can be seen with moderate atrophy. This can also be the result of normal pressure hydrocephalus/communicating type hydrocephalus. Recommend correlation clinically. Bones/joints: Unremarkable. Sinuses: There is a small amount of thick secretions right maxillary sinus. There is opacification of the ethmoid sinuses consistent with mucosal thickening changes and sinusitis. Small amount of fluid in the sphenoid sinus. IMPRESSION: 1. Small amount of thick secretions maxillary sinuses. Opacification of the ethmoid sinuses probably changes of sinusitis. Underlying polyps not excluded. 2. Low signal intensity through the basal ganglia bilaterally may be metallic deposition. This can be seen Parkinson's disease. 3. Moderate enlargement of ventricles and cerebral sulci may all be the result of atrophy. Communicating type hydrocephalus can give an identical appearance. I would recommend correlation with the patient's clinical findings. Electronically signed by: Brian Alexandra On 03/19/2018 16:14:31 PM DD: BRIAN ALEXANDRA MD 03/19/18 1504 DT: CRISTIAN 03/19/18 1614 DS: SHAVONNE 03/19/18 1614 Chest x-ray: Two views. History: Flu. Cmparison chest x-ray: March 19, 2018. Findings: There is extensive calcific pleural plaquing noted bilaterally. No infiltrate is seen. The lungs are hyperinflated overall. Pleural angles are sharp on the frontal view. They are obscured on the lateral radiograph by the and rales for the of wheelchair. Impression: Extensive calcific pleural plaquing again noted bilaterally. Hyperinflation. No infiltrate seen. Clinical: Right upper quadrant pain. Technique: Real time pinon scale ultrasound examination using curved array transducer. Findings: Liver and visualized pancreas are normal in contour, size, echogenicity without focal hepatic or pancreatic lesion identified. The gallbladder demonstrates few adenomyomatosis and small benign appearing polyps up to 2 mm without gallstones, wall thickening, or pericholecystic fluid. No sonographic Lovelace's sign elicited. No biliary ductal dilatation appreciated and the common bile duct measures 2.5 mm diameter. Right kidney is normal in reniform shape without hydronephrosis and measures 11.8 x 6.0 x 5.3 cm. A minuscule amount of perihepatic fluid suggested. Impression: 1. Gallbladder demonstrates adenomyomatosis and small polyps to 2 mm. 2. A minuscule amount of perihepatic fluid is nonspecific. Clinical: Right upper quadrant pain. Technique: Axial noncontrast images from the lung bases to the pubic symphysis with coronal and sagittal re-formations. Comparison: 12/30/2016. Findings: Lung bases demonstrate calcified pleural plaques and chronic interstitial changes similar to prior examination. Liver, spleen, pancreas, gallbladder, bilateral adrenal glands and kidneys are within normal limits and stable. Small bilateral renovascular calcifications (right greater than left) are unchanged. The enteric system is without obstruction or obvious acute inflammatory process. Pelvis demonstrates normal bladder and mildly prominent prostate gland. No ascites. No free air. No obvious adenopathy. Atherosclerotic changes to the aorta and vasculature without aneurysm. Musculoskeletal structures demonstrate degenerative changes. Impression: 1. Chronic stable changes. 2. No obvious acute abdominopelvic pathology appreciated. Electronically Signed by John Dior MD 03/19/2018 09:41 A REFERRING PHYSICIAN: Dr. Chloe Booker DIAGNOSIS: Confusion. EEG NUMBER: [id number] HISTORY: The patient is a 62-year-old man who was admitted at [facility] with history of confusion, alcoholism, hypertension. He had progressive worsening of his mentation over the last 3 weeks. The patient was suspected to have alcohol withdrawal. This EEG was done to rule out epileptic potential and assess degree of encephalopathy. The patient is currently taking vancomycin, levofloxacin, thiamine, folic acid, multivitamin, oxazepam. TECHNICAL DESCRIPTION: This digital EEG was recorded by 21 scalp, ear and two EKG electrodes and was reviewed in bipolar and referential montages following reformatting in 10-20 international echo placement system. INTERPRETATION: The patient remained drowsy and confused throughout this EEG. The patient was pulling on wires. The patient had fever and lot of sweating and electrodes kept coming off. In readable portions of this EEG background rhythm consisted of 5 - 6 Hz theta activity measuring 15 - 30 microvolts in amplitude, which was symmetric bilaterally. Hyperventilation could not be performed. Photic stimulation remained unremarkable. EKG leads were affected by artifact. Excessive muscle and electrode artifact was seen in bilateral frontal and temporal head region throughout this recording. No epileptiform abnormalities were seen. CONCLUSION: This EEG in a drowsy and confused patient is severely affected by electrode and muscle artifacts. In readable portions of this EEG, background rhythm showed generalized slowing consistent with nonspecific diffuse cerebral dysfunction, such as seen in encephalopathy due to multiple potential causes, including toxi c, metabolic, infectious, alcohol withdrawal, structural brain abnormality or medication effects. Clinical correlation is recommended. DD: ROME BOYER MD 03/23/18 1409 DT: DANNIE 03/23/18 1416 DS: GIBSON 03/27/18 1509 <Electronically signed by ROME BOYER MD> 03/27/18 1502 DS2: TIME SPENT ON DISCHARGE: Greater than minutes. Vital Signs/I&Os Vital Signs Date Time Temp Pulse Resp B/P (MAP) Pulse Ox O2 Delivery O2 Flow Rate FiO2 04/06/18 09:07 66 126/70 04/06/18 05:00 98.6 18 97 I&O- Last 24 Hours up to 6 AM 04/06/18 06:00 Intake Total 1380 ml Output Total 775 ml Balance 605 ml Discharge Medications Scheduled Carvedilol (Carvedilol) 12.5 Mg Tab, 12.5 MG PO BID Folic Acid (Folic Acid) 1 Mg Tab, 1 MG PO DAILY Lisinopril (Lisinopril) 40 Mg Tab, 40 MG PO DAILY, (Reported) Multivitamins *[facility] STOCKED* (Thera M Plus *[facility] STOCKED*) 1 Tab Tab, 1 TAB PO DAILY Thiamine Hcl (Thiamine Hcl) 100 Mg Tab, 100 MG PO DAILY Allergies Coded Allergies: No Known Allergies (Unverified , 03/18/18) MARIANN PNITO MD Apr 06, 2018 12:25
== END 2018-04-06 13:19 | disposition home health service (06) | DRG 113 ==
LOC: EDBD 14:37 → M ED 14:37 → M PCU 18:34 → M ED 19:36 → M PCU 03-20 17:11 → M MS4PR 04-01 13:05
PROVIDERS: ADMIT Internal Medicine; ATTEND General Practice
DX: J11.1 Influenza due to unidentified influenza virus with other respiratory manifestations (principal); G93.41 Metabolic encephalopathy; G91.2 (Idiopathic) normal pressure hydrocephalus; M62.82 Rhabdomyolysis; E87.1 Hypo-osmolality and hyponatremia; J43.9 Emphysema, unspecified; I11.9 Hypertensive heart disease without heart failure; E83.42 Hypomagnesemia; G35 Multiple sclerosis; F10.239 Alcohol dependence with withdrawal, unspecified; F17.200 Nicotine dependence, unspecified, uncomplicated; E87.6 Hypokalemia; R26.89 Other abnormalities of gait and mobility; K82.4 Cholesterolosis of gallbladder; J92.9 Pleural plaque without asbestos; L30.9 Dermatitis, unspecified; Z79.899 Other long term (current) drug therapy

== ENCOUNTER → 2018-04-17 | Outpatient (REF) | payer OTHER ==
[~2018-04-17] MED LIST changes: +CARV12.5 PO; +FOLI1TAB11 PO; +THIA100TA PO; +VITMTA PO
[2018-04-17 17:21] LABS: BASO # 0.1 10^3/uL (0.0-0.2); BASO % 0.7 % (0.0-1.0); EOS # 0.7 10^3/uL (0.0-0.50); HEMATOCRIT 29.6 % (42.0-52.0); HEMOGLOBIN 10.1 g/dl (13.5-17.5); LYMPH # 2.3 10^3/uL (1.5-4.5); MEAN CORPUSCULAR HEMOGLOBIN 34.6 pg (27.0-33.0); MEAN CORPUSCULAR HGB CONC 34.1 g/dl (32.0-36.5); MEAN CORPUSCULAR VOLUME 101.4 fl (80.0-96.0); MONO # 0.9 10^3/uL (0.0-0.8); MONO % 11.3 % (0.0-5.0); NEUTROPHILS # 4.2 10^3/uL (1.8-7.7); NEUTROPHILS % 51.5 % (36.0-66.0); PLATELET COUNT, AUTOMATED 442 10^3/uL (150-450); RED BLOOD COUNT 2.92 10^6/uL (4.30-6.10); WHITE BLOOD COUNT 8.1 10^3/uL (4.0-10.0)
[2018-04-17 17:40] LABS: ALBUMIN 2.7 GM/DL (3.2-5.2); ALT/SGPT 13 U/L (12-78); BILIRUBIN,TOTAL 0.2 MG/DL (0.2-1.0); BLOOD UREA NITROGEN 10 MG/DL (7-18); CALCIUM LEVEL 7.9 MG/DL (8.8-10.2); CARBON DIOXIDE LEVEL 27 MEQ/L (21-32); CHLORIDE LEVEL 98 MEQ/L (98-107); CREATININE FOR GFR 0.88 MG/DL (0.70-1.30); GLOMERULAR FILTRATION RATE > 60.0 (>49); GLUCOSE, FASTING 76 MG/DL (70-100); MAGNESIUM LEVEL 2.3 MG/DL (1.8-2.4); POTASSIUM SERUM 4.4 MEQ/L (3.5-5.1); SODIUM LEVEL 133 MEQ/L (136-145); TOTAL PROTEIN 6.6 GM/DL (6.4-8.2)
== END ==
LOC: M SFHCCAPE 11:51
PROVIDERS: ATTEND Physician Assistant
DX: E83.42 Hypomagnesemia (principal)

== ENCOUNTER → 2019-05-01 | Outpatient (REF) | payer MEDICARE ==
[2019-05-01 16:56] LABS: BASO # 0.1 10^3/uL (0.0-0.2); BASO % 0.9 % (0.0-1.0); EOS # 1.3 10^3/uL (0.0-0.5); EOS % 19.6 % (0.0-3.0); HEMATOCRIT 33.7 % (42.0-52.0); HEMOGLOBIN 12.6 g/dl (13.5-17.5); LYMPH # 1.2 10^3/uL (1.5-5.0); MEAN CORPUSCULAR HEMOGLOBIN 35.5 pg (27.0-33.0); MEAN CORPUSCULAR HGB CONC 37.4 g/dl (32.0-36.5); MEAN CORPUSCULAR VOLUME 94.9 fl (80.0-96.0); MONO # 0.8 10^3/uL (0.0-0.8); NEUTROPHILS % 47.2 % (36.0-66.0); PLATELET COUNT, AUTOMATED 336 10^3/uL (150-450); RED BLOOD COUNT 3.55 10^6/uL (4.30-6.10); WHITE BLOOD COUNT 6.4 10^3/uL (4.0-10.0)
[2019-05-01 17:11] LABS: ALBUMIN 3.6 GM/DL (3.2-5.2); ALT/SGPT 15 U/L (12-78); BILIRUBIN,TOTAL 0.4 MG/DL (0.2-1.0); BLOOD UREA NITROGEN 9 MG/DL (7-18); C REACTIVE PROTEIN QUANTITATIV 1.82 MG/DL (0.00-0.30); CALCIUM LEVEL 8.4 MG/DL (8.8-10.2); CARBON DIOXIDE LEVEL 27 MEQ/L (21-32); CHLORIDE LEVEL 88 MEQ/L (98-107); CHOLESTEROL LEVEL 127 MG/DL (<200); CHOLESTEROL RISK RATIO 2.048 (<5); GLOMERULAR FILTRATION RATE > 60.0 (>49); GLUCOSE, FASTING 88 MG/DL (70-100); HDL CHOLESTEROL 62 MG/DL (>40); LDL CHOLESTEROL 52 MG/DL (<100); NON-HDL-C 65 MG/DL; POTASSIUM SERUM 4.8 MEQ/L (3.5-5.1); RHEUMATOID FACTOR QUANT < 10.0 IU/ML (<15.0); SODIUM LEVEL 119 MEQ/L (136-145); THYROID STIMULATING HORMONE 0.783 uIU/ML (0.358-3.740); TOTAL PROTEIN 6.7 GM/DL (6.4-8.2); TRIGLYCERIDES LEVEL 66 MG/DL (<150)
[2019-05-01 18:18] LABS: ERYTHROCYTE SEDIMENTATION RATE 24 mm/hr (0-20)
== END ==
LOC: M SFHCCAPE 09:50
PROVIDERS: ATTEND Physician Assistant
DX: R21 Rash and other nonspecific skin eruption (principal); I10 Essential (primary) hypertension; Z79.899 Other long term (current) drug therapy

== ENCOUNTER → 2019-05-03 | Outpatient (REF) | payer MEDICARE ==
[2019-05-03 16:37] LABS: ALBUMIN 3.7 GM/DL (3.2-5.2); ALT/SGPT 18 U/L (12-78); BILIRUBIN,TOTAL 0.4 MG/DL (0.2-1.0); BLOOD UREA NITROGEN 11 MG/DL (7-18); CALCIUM LEVEL 8.7 MG/DL (8.8-10.2); CARBON DIOXIDE LEVEL 23 MEQ/L (21-32); CHLORIDE LEVEL 93 MEQ/L (98-107); CREATININE FOR GFR 0.85 MG/DL (0.70-1.30); GLOMERULAR FILTRATION RATE > 60.0 (>49); GLUCOSE, FASTING 114 MG/DL (70-100); MAGNESIUM LEVEL 1.7 MG/DL (1.8-2.4); POTASSIUM SERUM 4.8 MEQ/L (3.5-5.1); SODIUM LEVEL 125 MEQ/L (136-145); TOTAL PROTEIN 6.9 GM/DL (6.4-8.2)
[2019-05-03 17:26] LABS: OSMOLALITY SERUM 260 MOSM/KG (280-301)
[2019-05-04 11:13] LABS: OSMOLALITY URINE 443 MOSM/KG (500-800)
[2019-05-04 11:34] LABS: SODIUM,RANDOM URINE 50 MEQ/L
== END ==
LOC: M SFHCCLAY 11:06
PROVIDERS: ATTEND Physician Assistant
DX: E87.1 Hypo-osmolality and hyponatremia (principal)

== ENCOUNTER → 2019-05-31 | Outpatient (REF) | payer MEDICARE | LOC: M LAB REF 17:22 | PROVIDERS: ATTEND Dermatology | DX: L30.8 Other specified dermatitis (principal); L40.9 Psoriasis, unspecified | CPT/HCPCS: 11104; 11105; 88305; G0463 ==

== ENCOUNTER → 2019-06-27 | Outpatient (CLI) | payer MEDICARE ==
[2019-06-27 13:25] LABS: BLOOD UREA NITROGEN 10 MG/DL (7-18); CALCIUM LEVEL 8.8 MG/DL (8.8-10.2); CARBON DIOXIDE LEVEL 25 MEQ/L (21-32); CHLORIDE LEVEL 91 MEQ/L (98-107); CREATININE FOR GFR 0.89 MG/DL (0.70-1.30); GLOMERULAR FILTRATION RATE > 60.0 (>49); GLUCOSE, FASTING 96 MG/DL (70-100); MAGNESIUM LEVEL 1.7 MG/DL (1.8-2.4); POTASSIUM SERUM 4.5 MEQ/L (3.5-5.1); SODIUM LEVEL 123 MEQ/L (136-145)
== END ==
LOC: M LAB 12:22
PROVIDERS: ATTEND Dermatology
DX: Z79.899 Other long term (current) drug therapy (principal)

== ENCOUNTER → 2019-07-27 | Outpatient (REF) | payer MEDICARE ==
[2019-07-27 11:39] LABS: BASO # 0.1 10^3/uL (0.0-0.2); BASO % 2.1 % (0.0-1.0); EOS # 0.6 10^3/uL (0.0-0.5); HEMATOCRIT 35.6 % (42.0-52.0); HEMOGLOBIN 12.8 g/dl (13.5-17.5); LYMPH # 2.2 10^3/uL (1.5-5.0); LYMPH % 35.5 % (24.0-44.0); MEAN CORPUSCULAR HEMOGLOBIN 35.5 pg (27.0-33.0); MEAN CORPUSCULAR VOLUME 98.6 fl (80.0-96.0); MONO % 16.6 % (0.0-5.0); NEUTROPHILS # 2.1 10^3/uL (1.5-8.5); NEUTROPHILS % 35.3 % (36.0-66.0); PLATELET COUNT, AUTOMATED 423 10^3/uL (150-450); RED BLOOD COUNT 3.61 10^6/uL (4.30-6.10); WHITE BLOOD COUNT 6.1 10^3/uL (4.0-10.0)
[2019-07-27 11:53] LABS: ALBUMIN 3.6 GM/DL (3.2-5.2); ALT/SGPT 14 U/L (12-78); BILIRUBIN,TOTAL 0.5 MG/DL (0.2-1.0); BLOOD UREA NITROGEN 12 MG/DL (7-18); CALCIUM LEVEL 9.3 MG/DL (8.8-10.2); CARBON DIOXIDE LEVEL 27 MEQ/L (21-32); CHLORIDE LEVEL 97 MEQ/L (98-107); CREATININE FOR GFR 0.82 MG/DL (0.70-1.30); GLOMERULAR FILTRATION RATE > 60.0 (>49); GLUCOSE, FASTING 90 MG/DL (70-100); MAGNESIUM LEVEL 1.9 MG/DL (1.8-2.4); POTASSIUM SERUM 4.6 MEQ/L (3.5-5.1); SODIUM LEVEL 130 MEQ/L (136-145); TOTAL PROTEIN 6.7 GM/DL (6.4-8.2)
== END ==
LOC: M SFHCDERM 08:07
PROVIDERS: ATTEND Dermatology
DX: L08.9 Local infection of the skin and subcutaneous tissue, unspecified (principal); E87.1 Hypo-osmolality and hyponatremia; E83.42 Hypomagnesemia

== ENCOUNTER → 2019-08-22 | Outpatient (CLI) | payer MEDICARE ==
[2019-08-22 10:52] LABS: HEMATOCRIT 37.2 % (42.0-52.0); MEAN CORPUSCULAR HEMOGLOBIN 34.9 pg (27.0-33.0); MEAN CORPUSCULAR HGB CONC 34.9 g/dl (32.0-36.5); PLATELET COUNT, AUTOMATED 345 10^3/uL (150-450); RED BLOOD COUNT 3.72 10^6/uL (4.30-6.10); WHITE BLOOD COUNT 5.4 10^3/uL (4.0-10.0)
[2019-08-22 11:18] LABS: ALBUMIN 3.8 GM/DL (3.2-5.2); ALT/SGPT 12 U/L (12-78); BILIRUBIN,TOTAL 0.5 MG/DL (0.2-1.0); BLOOD UREA NITROGEN 14 MG/DL (7-18); CALCIUM LEVEL 9.1 MG/DL (8.8-10.2); CARBON DIOXIDE LEVEL 27 MEQ/L (21-32); CHLORIDE LEVEL 101 MEQ/L (98-107); CHOLESTEROL LEVEL 162 MG/DL (<200); CREATININE FOR GFR 1.12 MG/DL (0.70-1.30); GLOMERULAR FILTRATION RATE > 60.0 (>49); GLUCOSE, FASTING 120 MG/DL (70-100); HDL CHOLESTEROL 72 MG/DL (>40); LDL CHOLESTEROL 69 MG/DL (<100); NON-HDL-C 90 MG/DL; POTASSIUM SERUM 4.4 MEQ/L (3.5-5.1); SODIUM LEVEL 133 MEQ/L (136-145); TOTAL PROTEIN 7.4 GM/DL (6.4-8.2); TRIGLYCERIDES LEVEL 106 MG/DL (<150); URIC ACID 6.3 MG/DL (3.5-7.2)
== END ==
LOC: M LAB 09:54
PROVIDERS: ATTEND Dermatology
DX: Z79.899 Other long term (current) drug therapy (principal)

== ENCOUNTER → 2019-09-19 | Outpatient (CLI) | payer MEDICARE ==
[2019-11-11 15:10] LABS: BASO # 0.1 10^3/uL (0.0-0.2); BASO % 1.4 % (0.0-1.0); EOS # 0.2 10^3/uL (0.0-0.5); EOS % 3.8 % (0.0-3.0); HEMOGLOBIN 13.1 g/dl (13.5-17.5); LYMPH # 1.7 10^3/uL (1.5-5.0); LYMPH % 29.9 % (24.0-44.0); MEAN CORPUSCULAR HEMOGLOBIN 35.2 pg (27.0-33.0); MEAN CORPUSCULAR HGB CONC 36.4 g/dl (32.0-36.5); MEAN CORPUSCULAR VOLUME 96.8 fl (80.0-96.0); MONO # 0.8 10^3/uL (0.0-0.8); MONO % 13.1 % (0.0-5.0); NEUTROPHILS % 51.6 % (36.0-66.0); PLATELET COUNT, AUTOMATED 307 10^3/uL (150-450); RED BLOOD COUNT 3.72 10^6/uL (4.30-6.10); WHITE BLOOD COUNT 5.8 10^3/uL (4.0-10.0)
[2019-11-11 15:51] LABS: APPEARANCE, URINE CLEAR (CLEAR); BACTERIA, URINE AUTO NEGATIVE (NEGATIVE); BILIRUBIN, URINE AUTO NEGATIVE (NEGATIVE); BLOOD, URINE BLOOD NEGATIVE (NEGATIVE); COLOR, URINE YELLOW (YELLOW); GLUCOSE, URINE (UA) AUTO NEGATIVE (NEGATIVE); KETONE, URINE AUTO NEGATIVE (NEGATIVE); LEUKOCYTE ESTERASE, URINE AUTO NEGATIVE (NEGATIVE); NITRITE, URINE AUTO NEGATIVE (NEGATIVE); PROTEIN, URINE AUTO NEGATIVE (NEGATIVE); RBC, URINE AUTO 3 /HPF (0-3); SPECIFIC GRAVITY URINE AUTO 1.013 (1.002-1.035); SQUAMOUS EPITHELIAL CELL UR AU 0 /HPF (0-6); UROBILINOGEN, URINE AUTO 0.2 mg/dL (0.0-2.0); WBC, URINE AUTO 0 /HPF (0-3)
[2019-11-17 10:17] LABS: ALBUMIN 4.2 GM/DL (3.2-5.2); ALT/SGPT 19 U/L (12-78); BILIRUBIN,TOTAL 0.5 MG/DL (0.2-1.0); BLOOD UREA NITROGEN 8 MG/DL (7-18); CALCIUM LEVEL 8.9 MG/DL (8.8-10.2); CARBON DIOXIDE LEVEL 28 MEQ/L (21-32); CHLORIDE LEVEL 91 MEQ/L (98-107); CREATININE FOR GFR 0.84 MG/DL (0.70-1.30); GLOMERULAR FILTRATION RATE > 60.0 (>49); GLUCOSE, FASTING 145 MG/DL (70-100); POTASSIUM SERUM 4.3 MEQ/L (3.5-5.1); SODIUM LEVEL 123 MEQ/L (136-145); TOTAL PROTEIN 7.6 GM/DL (6.4-8.2); URIC ACID 3.9 MG/DL (3.5-7.2)
== END ==
LOC: M LAB 10:42
PROVIDERS: ATTEND Dermatology
DX: Z79.899 Other long term (current) drug therapy (principal)

== ENCOUNTER → 2019-11-21 | Outpatient (CLI) | payer MEDICARE ==
[2019-11-21 13:56] LABS: HEMATOCRIT 33.2 % (42.0-52.0); MEAN CORPUSCULAR HEMOGLOBIN 34.3 pg (27.0-33.0); MEAN CORPUSCULAR HGB CONC 36.1 g/dl (32.0-36.5); MEAN CORPUSCULAR VOLUME 94.9 fl (80.0-96.0); PLATELET COUNT, AUTOMATED 385 10^3/uL (150-450); WHITE BLOOD COUNT 6.7 10^3/uL (4.0-10.0)
[2019-11-21 13:59] LABS: APPEARANCE, URINE CLEAR (CLEAR); BACTERIA, URINE AUTO NEGATIVE (NEGATIVE); BILIRUBIN, URINE AUTO NEGATIVE (NEGATIVE); BLOOD, URINE BLOOD NEGATIVE (NEGATIVE); COLOR, URINE YELLOW (YELLOW); GLUCOSE, URINE (UA) AUTO NEGATIVE (NEGATIVE); KETONE, URINE AUTO NEGATIVE (NEGATIVE); LEUKOCYTE ESTERASE, URINE AUTO NEGATIVE (NEGATIVE); MUCUS, URINE SMALL (NEGATIVE); NITRITE, URINE AUTO NEGATIVE (NEGATIVE); PROTEIN, URINE AUTO NEGATIVE (NEGATIVE); RBC, URINE AUTO 0 /HPF (0-3); SPECIFIC GRAVITY URINE AUTO 1.013 (1.002-1.035); SQUAMOUS EPITHELIAL CELL UR AU 0 /HPF (0-6); UROBILINOGEN, URINE AUTO 0.2 mg/dL (0.0-2.0); WBC, URINE AUTO 3 /HPF (0-3)
[2019-11-21 14:34] LABS: ALBUMIN 3.9 GM/DL (3.2-5.2); ALT/SGPT 14 U/L (12-78); BILIRUBIN,TOTAL 0.4 MG/DL (0.2-1.0); BLOOD UREA NITROGEN 14 MG/DL (7-18); CARBON DIOXIDE LEVEL 25 MEQ/L (21-32); CHLORIDE LEVEL 90 MEQ/L (98-107); CHOLESTEROL LEVEL 144 MG/DL (<200); CHOLESTEROL RISK RATIO 1.822 (<5); CREATININE FOR GFR 0.96 MG/DL (0.70-1.30); GLOMERULAR FILTRATION RATE > 60.0 (>49); GLUCOSE, FASTING 91 MG/DL (70-100); HDL CHOLESTEROL 79 MG/DL (>40); LDL CHOLESTEROL 36 MG/DL (<100); MAGNESIUM LEVEL 1.9 MG/DL (1.8-2.4); NON-HDL-C 65 MG/DL; POTASSIUM SERUM 4.5 MEQ/L (3.5-5.1); SODIUM LEVEL 123 MEQ/L (136-145); TOTAL PROTEIN 7.3 GM/DL (6.4-8.2); TRIGLYCERIDES LEVEL 144 MG/DL (<150); URIC ACID 3.3 MG/DL (3.5-7.2)
== END ==
LOC: M LAB 12:11
PROVIDERS: ATTEND Dermatology
DX: Z79.899 Other long term (current) drug therapy (principal)

== ENCOUNTER → 2019-12-12 | Outpatient (REF) | payer MEDICARE ==
[2019-12-12 17:36] LABS: BLOOD UREA NITROGEN 19 MG/DL (7-18); CALCIUM LEVEL 8.9 MG/DL (8.8-10.2); CARBON DIOXIDE LEVEL 25 MEQ/L (21-32); CHLORIDE LEVEL 98 MEQ/L (98-107); CREATININE FOR GFR 1.19 MG/DL (0.70-1.30); GLOMERULAR FILTRATION RATE > 60.0 (>49); GLUCOSE, FASTING 104 MG/DL (70-100); PHOSPHORUS LEVEL 4.2 MG/DL (2.5-4.9); POTASSIUM SERUM 4.5 MEQ/L (3.5-5.1); SODIUM LEVEL 130 MEQ/L (136-145)
== END ==
LOC: M SFHCPLAZ 14:39
PROVIDERS: ATTEND Physician Assistant
DX: L40.0 Psoriasis vulgaris (principal)
CPT/HCPCS: 36415; 80069; 83735; G0463

== ENCOUNTER → 2020-03-13 | Outpatient (REF) | payer MEDICARE ==
[2020-03-13 11:55] LABS: APPEARANCE, URINE HAZY (CLEAR); BACTERIA, URINE AUTO NEGATIVE (NEGATIVE); BILIRUBIN, URINE AUTO NEGATIVE (NEGATIVE); BLOOD, URINE BLOOD NEGATIVE (NEGATIVE); COLOR, URINE YELLOW (YELLOW); GLUCOSE, URINE (UA) AUTO NEGATIVE (NEGATIVE); KETONE, URINE AUTO NEGATIVE (NEGATIVE); LEUKOCYTE ESTERASE, URINE AUTO NEGATIVE (NEGATIVE); MUCUS, URINE SMALL (NEGATIVE); NITRITE, URINE AUTO NEGATIVE (NEGATIVE); PROTEIN, URINE AUTO NEGATIVE (NEGATIVE); RBC, URINE AUTO 0 /HPF (0-3); SPECIFIC GRAVITY URINE AUTO 1.013 (1.002-1.035); SQUAMOUS EPITHELIAL CELL UR AU 0 /HPF (0-6); UROBILINOGEN, URINE AUTO 0.2 mg/dL (0.0-2.0); WBC, URINE AUTO 0 /HPF (0-3)
[2020-03-13 12:15] LABS: HEMATOCRIT 36.9 % (42.0-52.0); HEMOGLOBIN 13.1 g/dl (13.5-17.5); MEAN CORPUSCULAR HEMOGLOBIN 35.1 pg (27.0-33.0); MEAN CORPUSCULAR HGB CONC 35.5 g/dl (32.0-36.5); MEAN CORPUSCULAR VOLUME 98.9 fl (80.0-96.0); PLATELET COUNT, AUTOMATED 406 10^3/uL (150-450); RED BLOOD COUNT 3.73 10^6/uL (4.30-6.10); WHITE BLOOD COUNT 6.7 10^3/uL (4.0-10.0)
[2020-03-13 13:30] LABS: ALBUMIN 4.2 GM/DL (3.2-5.2); ALT/SGPT 18 U/L (12-78); BILIRUBIN,TOTAL 0.5 MG/DL (0.2-1.0); BLOOD UREA NITROGEN 10 MG/DL (7-18); CALCIUM LEVEL 9.5 MG/DL (8.8-10.2); CARBON DIOXIDE LEVEL 25 MEQ/L (21-32); CHLORIDE LEVEL 96 MEQ/L (98-107); CHOLESTEROL LEVEL 161 MG/DL (<200); CHOLESTEROL RISK RATIO 1.894 (<5); GLOMERULAR FILTRATION RATE > 60.0 (>49); GLUCOSE, FASTING 99 MG/DL (70-100); HDL CHOLESTEROL 85 MG/DL (>40); LDL CHOLESTEROL 62 MG/DL (<100); NON-HDL-C 76 MG/DL; POTASSIUM SERUM 4.6 MEQ/L (3.5-5.1); SODIUM LEVEL 130 MEQ/L (136-145); TOTAL PROTEIN 7.4 GM/DL (6.4-8.2); TRIGLYCERIDES LEVEL 72 MG/DL (<150); URIC ACID 4.8 MG/DL (3.5-7.2)
== END ==
LOC: M SFHCDERM 08:51
PROVIDERS: ATTEND Dermatology
DX: Z79.899 Other long term (current) drug therapy (principal)

== ENCOUNTER → 2020-07-16 | Outpatient (CLI) | payer MEDICARE ==
[~2020-07-16] MED LIST changes: -LISI40TA PO; +LISI40TA4 PO
[2020-07-16 13:34] LABS: ALBUMIN 4.1 GM/DL (3.2-5.2); BLOOD UREA NITROGEN 10 MG/DL (7-18); CALCIUM LEVEL 9.4 MG/DL (8.8-10.2); CARBON DIOXIDE LEVEL 26 MEQ/L (21-32); CHLORIDE LEVEL 93 MEQ/L (98-107); CREATININE FOR GFR 0.83 MG/DL (0.70-1.30); GLOMERULAR FILTRATION RATE > 60.0 (>49); GLUCOSE, FASTING 95 MG/DL (70-100); PHOSPHORUS LEVEL 4.2 MG/DL (2.5-4.9); POTASSIUM SERUM 4.6 MEQ/L (3.5-5.1); SODIUM LEVEL 126 MEQ/L (136-145); URIC ACID 4.3 MG/DL (3.5-7.2)
== END ==
LOC: M LAB 12:09
PROVIDERS: ATTEND Physician Assistant
DX: L40.8 Other psoriasis (principal)
CPT/HCPCS: 36415; 80069; 83735; 84550; G0463

== ENCOUNTER → 2020-10-22 | Outpatient (REF) | payer MEDICARE ==
[2020-10-22 16:09] LABS: BASO # 0.1 10^3/uL (0.0-0.2); BASO % 1.1 % (0.0-1.0); EOS # 0.3 10^3/uL (0.0-0.5); EOS % 6.2 % (0.0-3.0); HEMATOCRIT 35.1 % (42.0-52.0); HEMOGLOBIN 12.5 g/dl (13.5-17.5); LYMPH # 1.6 10^3/uL (1.5-5.0); LYMPH % 28.3 % (24.0-44.0); MEAN CORPUSCULAR HEMOGLOBIN 34.5 pg (27.0-33.0); MEAN CORPUSCULAR HGB CONC 35.6 g/dl (32.0-36.5); MONO # 0.8 10^3/uL (0.0-0.8); MONO % 14.1 % (2.0-8.0); NEUTROPHILS # 2.8 10^3/uL (1.5-8.5); NEUTROPHILS % 50.1 % (36.0-66.0); PLATELET COUNT, AUTOMATED 388 10^3/uL (150-450); RED BLOOD COUNT 3.62 10^6/uL (4.30-6.10); WHITE BLOOD COUNT 5.5 10^3/uL (4.0-10.0)
[2020-10-22 16:41] LABS: ALBUMIN 3.6 GM/DL (3.2-5.2); ALT/SGPT 14 U/L (12-78); BILIRUBIN,TOTAL 0.5 MG/DL (0.2-1.0); BLOOD UREA NITROGEN 8 MG/DL (7-18); CALCIUM LEVEL 8.9 MG/DL (8.8-10.2); CARBON DIOXIDE LEVEL 27 MEQ/L (21-32); CHLORIDE LEVEL 93 MEQ/L (98-107); CHOLESTEROL LEVEL 153 MG/DL (<200); CHOLESTEROL RISK RATIO 2.095 (<5); CREATININE FOR GFR 0.87 MG/DL (0.70-1.30); GLOMERULAR FILTRATION RATE > 60.0 (>49); GLUCOSE, FASTING 115 MG/DL (70-100); HDL CHOLESTEROL 73 MG/DL (>40); LDL CHOLESTEROL 65 MG/DL (<100); MAGNESIUM LEVEL 2.1 MG/DL (1.8-2.4); NON-HDL-C 80 MG/DL; POTASSIUM SERUM 4.3 MEQ/L (3.5-5.1); SODIUM LEVEL 126 MEQ/L (136-145); TOTAL PROTEIN 6.8 GM/DL (6.4-8.2); TRIGLYCERIDES LEVEL 76 MG/DL (<150)
[2020-10-22 16:45] LABS: FOLATE 20.5 NG/ML; TOTAL 25(OH) VITAMIN D 15.6 NG/ML (30.0-100.0); VITAMIN B12 LEVEL 272 PG/ML
[2020-10-22 16:57] LABS: APPEARANCE, URINE CLEAR (CLEAR); BACTERIA, URINE AUTO NEGATIVE (NEGATIVE); BILIRUBIN, URINE AUTO NEGATIVE (NEGATIVE); BLOOD, URINE BLOOD NEGATIVE (NEGATIVE); COLOR, URINE YELLOW (YELLOW); GLUCOSE, URINE (UA) AUTO NEGATIVE (NEGATIVE); KETONE, URINE AUTO NEGATIVE (NEGATIVE); LEUKOCYTE ESTERASE, URINE AUTO NEGATIVE (NEGATIVE); NITRITE, URINE AUTO NEGATIVE (NEGATIVE); PROTEIN, URINE AUTO NEGATIVE (NEGATIVE); RBC, URINE AUTO 1 /HPF (0-3); SPECIFIC GRAVITY URINE AUTO 1.012 (1.002-1.035); SQUAMOUS EPITHELIAL CELL UR AU 0 /HPF (0-6); UROBILINOGEN, URINE AUTO 0.2 mg/dL (0.0-2.0); WBC, URINE AUTO 0 /HPF (0-3)
== END ==
LOC: M SFHCCAPE 09:47
PROVIDERS: ATTEND Physician Assistant
DX: I10 Essential (primary) hypertension (principal); Z12.5 Encounter for screening for malignant neoplasm of prostate; E83.42 Hypomagnesemia; F10.10 Alcohol abuse, uncomplicated; Z79.899 Other long term (current) drug therapy
CPT/HCPCS: 80053; 80061; 81001; 82306; 82607; 82746; 83735; 84443; 85025; G0103

== ENCOUNTER → 2022-04-29 | Outpatient (REF) | payer MEDICARE ==
[2022-04-29 19:14] LABS: BASO # 0.1 10^3/uL (0.0-0.2); BASO % 1.5 % (0.0-1.0); EOS # 0.1 10^3/uL (0.0-0.5); EOS % 1.4 % (0.0-3.0); HEMATOCRIT 34.8 % (42.0-52.0); HEMOGLOBIN 12.4 g/dl (13.5-17.5); LYMPH # 1.3 10^3/uL (1.5-5.0); LYMPH % 22.2 % (24.0-44.0); MEAN CORPUSCULAR HEMOGLOBIN 34.3 pg (27.0-33.0); MEAN CORPUSCULAR HGB CONC 35.6 g/dl (32.0-36.5); MEAN CORPUSCULAR VOLUME 96.1 fl (80.0-96.0); MONO # 1.2 10^3/uL (0.0-0.8); MONO % 20.9 % (2.0-8.0); NEUTROPHILS # 3.2 10^3/uL (1.5-8.5); NEUTROPHILS % 53.8 % (36.0-66.0); PLATELET COUNT, AUTOMATED 513 10^3/uL (150-450); RED BLOOD COUNT 3.62 10^6/uL (4.30-6.10); WHITE BLOOD COUNT 5.9 10^3/uL (4.0-10.0)
[2022-04-29 19:18] LABS: TOTAL 25(OH) VITAMIN D 88.8 NG/ML (20.0-100.0)
[2022-04-29 19:26] LABS: ALBUMIN 3.4 G/DL (3.2-5.2); ALKALINE PHOSPHATASE 97 U/L (46-116); ALT/SGPT 10 U/L (7.0-40); AST/SGOT 14 U/L (<34); BILIRUBIN,TOTAL 0.5 MG/DL (0.3-1.2); BLOOD UREA NITROGEN 9 MG/DL (9-23); CALCIUM LEVEL 8.7 MG/DL (8.3-10.6); CARBON DIOXIDE LEVEL 26 MMOL/L (20-31); CHLORIDE LEVEL 88 MMOL/L (98-107); CHOLESTEROL LEVEL 118 MG/DL (<200); CHOLESTEROL RISK RATIO 1.85 (<5); CREATININE FOR GFR 0.66 MG/DL (0.70-1.30); GLOMERULAR FILTRATION RATE > 60.0 (>49); GLUCOSE, FASTING 91 MG/DL (74-106); HDL CHOLESTEROL 63.6 MG/DL (>40); LDL CHOLESTEROL 38.6 MG/DL (<100); NON-HDL-C 54.4 MG/DL; POTASSIUM SERUM 4.4 MMOL/L (3.5-5.1); SODIUM LEVEL 120 MMOL/L (136-145); TOTAL PROTEIN 6.6 G/DL (5.7-8.2); TRIGLYCERIDES LEVEL 79 MG/DL (<150)
== END ==
LOC: M SFHCCAPE 10:37
PROVIDERS: ATTEND Physician Assistant
DX: E55.9 Vitamin D deficiency, unspecified (principal); I10 Essential (primary) hypertension; Z12.5 Encounter for screening for malignant neoplasm of prostate; Z79.899 Other long term (current) drug therapy
CPT/HCPCS: 80053; 80061; 82306; 85025; G0103

== ENCOUNTER → 2022-05-12 | Outpatient (REF) | payer MEDICARE ==
[2022-05-12 17:53] LABS: ALBUMIN 3.1 G/DL (3.2-5.2); ALKALINE PHOSPHATASE 106 U/L (46-116); ALT/SGPT 10 U/L (7.0-40); AST/SGOT 11 U/L (<34); BILIRUBIN,TOTAL 0.5 MG/DL (0.3-1.2); BLOOD UREA NITROGEN 9 MG/DL (9-23); CALCIUM LEVEL 8.6 MG/DL (8.3-10.6); CARBON DIOXIDE LEVEL 26 MMOL/L (20-31); CHLORIDE LEVEL 89 MMOL/L (98-107); CREATININE FOR GFR 0.67 MG/DL (0.70-1.30); GLOMERULAR FILTRATION RATE > 60.0 (>49); GLUCOSE, FASTING 78 MG/DL (74-106); POTASSIUM SERUM 4.5 MMOL/L (3.5-5.1); SODIUM LEVEL 121 MMOL/L (136-145); TOTAL PROTEIN 6.4 G/DL (5.7-8.2)
== END ==
LOC: M SFHCCAPE 09:35
PROVIDERS: ATTEND Physician Assistant
DX: R79.89 Other specified abnormal findings of blood chemistry (principal)

== ENCOUNTER → 2022-06-11 | Outpatient (CLI) | payer MEDICARE | LOC: M RAD 08:50 | PROVIDERS: ATTEND Physician Assistant | DX: Z12.2 Encounter for screening for malignant neoplasm of respiratory organs (principal); F17.210 Nicotine dependence, cigarettes, uncomplicated; J43.9 Emphysema, unspecified; J84.10 Pulmonary fibrosis, unspecified; R91.8 Other nonspecific abnormal finding of lung field ==

== ENCOUNTER → 2022-08-03 | Outpatient (CLI) | payer OTHER | LOC: M PLAIMG 08:10 | PROVIDERS: ATTEND Internal Medicine Pulmonary Disease | DX: R91.8 Other nonspecific abnormal finding of lung field (principal) ==

== ENCOUNTER → 2022-09-21 | Outpatient (REF) | payer MEDICARE ==
[2022-09-21 18:13] LABS: BASO # 0.1 10^3/uL (0.0-0.2); BASO % 1.5 % (0.0-1.0); EOS # 0.3 10^3/uL (0.0-0.5); EOS % 5.8 % (0.0-3.0); HEMATOCRIT 35.1 % (42.0-52.0); HEMOGLOBIN 12.2 g/dl (13.5-17.5); LYMPH # 1.6 10^3/uL (1.5-5.0); MEAN CORPUSCULAR HEMOGLOBIN 33.2 pg (27.0-33.0); MEAN CORPUSCULAR HGB CONC 34.8 g/dl (32.0-36.5); MEAN CORPUSCULAR VOLUME 95.4 fl (80.0-96.0); MONO % 18.4 % (2.0-8.0); NEUTROPHILS # 2.4 10^3/uL (1.5-8.5); NEUTROPHILS % 45.1 % (36.0-66.0); PLATELET COUNT, AUTOMATED 445 10^3/uL (150-450); RED BLOOD COUNT 3.68 10^6/uL (4.30-6.10); WHITE BLOOD COUNT 5.3 10^3/uL (4.0-10.0)
[2022-09-21 18:41] LABS: ALBUMIN 3.3 G/DL (3.2-5.2); ALKALINE PHOSPHATASE 112 U/L (46-116); ALT/SGPT < 9 U/L (7.0-40); AST/SGOT < 8 U/L (<34); BILIRUBIN,TOTAL 0.4 MG/DL (0.3-1.2); BLOOD UREA NITROGEN 10 MG/DL (9-23); CALCIUM LEVEL 8.5 MG/DL (8.3-10.6); CARBON DIOXIDE LEVEL 28 MMOL/L (20-31); CHLORIDE LEVEL 93 MMOL/L (98-107); CREATININE FOR GFR 0.72 MG/DL (0.70-1.30); GLOMERULAR FILTRATION RATE > 60.0 (>49); GLUCOSE, FASTING 79 MG/DL (74-106); POTASSIUM SERUM 4.7 MMOL/L (3.5-5.1); SODIUM LEVEL 126 MMOL/L (136-145); TOTAL PROTEIN 6.4 G/DL (5.7-8.2)
== END ==
LOC: M SFHCCAPE 10:14
PROVIDERS: ATTEND Physician Assistant
DX: E87.1 Hypo-osmolality and hyponatremia (principal)

== ENCOUNTER → 2022-10-06 | Outpatient (CLI) | payer MEDICARE ==
[~2022-10-06] MED LIST changes: +ALBU8.5H; +AMLO1TAB25 PO; +BEVE1AER; +MAGN400C2 PO; +TELM1TAB37 PO; +VITA100093 PO
[2022-10-06 14:23] LABS: PLATELET COUNT, AUTOMATED 433 10^3/uL (150-450)
[2022-10-06 14:36] LABS: INR 1.23; PROTHROMBIN TIME 15.2 SECONDS (12.5-14.5)
[2022-10-06 14:37] LABS: PARTIAL THROMBOPLASTIN TIME 33.1 SECONDS (24.8-34.2)
== END ==
LOC: M PLALAB 10:30
PROVIDERS: ATTEND Internal Medicine Pulmonary Disease
DX: R91.8 Other nonspecific abnormal finding of lung field (principal)

== ENCOUNTER 2022-10-11 10:16 | Day surgery (SDC) | payer OTHER ==
[~2022-10-11] VITALS: Ht 172.7 cm; Wt 53.3 kg
[~2022-10-11 10:16] MED LIST changes: +CEFUROXIME 1MG/0.1ML INTRACAMERAL INJ As Ordered ONE; +CYCLOPENTOLATE 1% OPHTH SOLN 2ML BTL OS SCH; +FLURBIPROFEN 0.03% OPHTH SOLN 2.5 ML OS SCH; +LIDOCAINE 1% SDV 5ML VIAL As Ordered ONE; +LR 1,000 ML IV SCH; +PHENYLEPHRINE 2.5% OPHTH SOL 2ML OS SCH; +TETRACAINE 0.5% OPHTH SOLN 4ML OS SCH
[2022-10-11] MEDS ORDERED: MIDAZOLAM INJ 2MG/2ML VIAL As Ordered ONE (13:04)
[2022-10-11] MEDS ORDERED: fentaNYL 100 MCG/2 ML INJECTION As Ordered ONE (13:04)
[2022-10-11 13:48] VITALS: BP 117/68; TEMP 97.5; O2SAT 98
== END 2022-10-11 14:15 | disposition home or self-care (01) ==
LOC: M SDC 10:16
PROVIDERS: ATTEND Ophthalmology
DX: H25.12 Age-related nuclear cataract, left eye (principal); I10 Essential (primary) hypertension; R21 Rash and other nonspecific skin eruption; F32.A Depression, unspecified; J44.9 Chronic obstructive pulmonary disease, unspecified; F17.210 Nicotine dependence, cigarettes, uncomplicated; Z79.899 Other long term (current) drug therapy
CPT/HCPCS: 66984; J0697; J2250; J3010; V2632

== ENCOUNTER → 2022-12-21 | Outpatient (CLI) | payer OTHER ==
[~2022-12-21] MED LIST changes: -CEFUROXIME 1MG/0.1ML INTRACAMERAL INJ As Ordered ONE; +CIPR0.3S37; -CYCLOPENTOLATE 1% OPHTH SOLN 2ML BTL OS SCH; +ERGO500029 PO; -FLURBIPROFEN 0.03% OPHTH SOLN 2.5 ML OS SCH; +HOME MED LIST COMPLETE! XX SCH; +KETO0.5S4; +LIDOCAINE 1% MDV 20ML VIAL As Ordered ONE; -LIDOCAINE 1% SDV 5ML VIAL As Ordered ONE; -LR 1,000 ML IV SCH; -PHENYLEPHRINE 2.5% OPHTH SOL 2ML OS SCH; +PREDOPD; +TACR0.1O TOP; -TETRACAINE 0.5% OPHTH SOLN 4ML OS SCH
[2022-12-21 08:00] VITALS: BP 120/85; TEMP 97.7; O2SAT 95
[2022-12-21 08:34] LABS: HEMATOCRIT 31.5 % (42.0-52.0); HEMOGLOBIN 11.1 g/dl (13.5-17.5); MEAN CORPUSCULAR HEMOGLOBIN 33.1 pg (27.0-33.0); MEAN CORPUSCULAR HGB CONC 35.2 g/dl (32.0-36.5); PLATELET COUNT, AUTOMATED 622 10^3/uL (150-450); RED BLOOD COUNT 3.35 10^6/uL (4.30-6.10); WHITE BLOOD COUNT 5.6 10^3/uL (4.0-10.0)
[2022-12-21 08:49] LABS: INR 1.2; PROTHROMBIN TIME 14.8 SECONDS (12.5-14.5)
== END ==
LOC: M IRPRO 07:50
PROVIDERS: ATTEND Internal Medicine Pulmonary Disease
DX: R91.8 Other nonspecific abnormal finding of lung field (principal)